=== PATIENT | female | born 1945 | race Caucasian/White ===

== ENCOUNTER 2017-03-12 10:45 | Inpatient (IN) | payer MEDICARE, OTHER ==
[2017-03-12] MEDS ORDERED: ASPIRIN 81 MG TABLET, CHEWABLE PO ONE (11:19)
[2017-03-12] MEDS ORDERED: METOPROLOL TARTRATE 100 MG TABLET PO ONE (11:19)
--- NOTE | 2017-03-12 11:21 | ER Document Report ---
ED Medical Screen (RME) - General Chief Complaint: Chest Pain Stated Complaint: CHEST PAIN Time Seen by Provider: 03/12/17 11:16 Notes: Patient presents with 3 days of substernal chest pain with some shortness of breath. Patient states she is currently pain-free and the pain subsided "just a little bit ago". Patient states that 2 days ago she realized that her blood pressure is normal and so she has stopped taking her blood pressure medications. Patient denies any recent cough cold or congestion. She is a smoker. TRAVEL OUTSIDE OF THE [place] IN LAST 30 DAYS: No - Related Data Allergies/Adverse Reactions: latex [Latex] Allergy (Verified 05/23/15 13:24) Penicillins Allergy (Verified 05/23/15 13:24) Sulfa (Sulfonamide Antibiotics) Allergy (Verified 05/23/15 13:24) Past Medical History - Social History Chew tobacco use (# tins/day): - 30 Frequency of alcohol use: None Drug Abuse: None - Past Medical History Cardiac Medical History: Reports: Hx Coronary Artery Disease, Hx Heart Attack, Hx Hypercholesterolemia, Hx Hypertension Pulmonary Medical History: Reports: Hx COPD Renal/ Medical History: Denies: Hx Peritoneal Dialysis GI Medical History: Reports: Hx Gastroesophageal Reflux Disease Past Surgical History: Reports: Hx Orthopedic Surgery - Rt BKA, neck - Immunizations Hx Diphtheria, Pertussis, Tetanus Vaccination: No Physical Exam - Vital signs Vitals: Temp Pulse Resp BP Pulse Ox 97.8 F 88 16 227/106 H 98 03/12/17 11:01 03/12/17 11:01 03/12/17 11:01 03/12/17 11:01 03/12/17 11:01 Course - Vital Signs Vital signs: Temp Pulse Resp BP Pulse Ox 97.8 F 88 16 227/106 H 98 03/12/17 11:05 03/12/17 11:05 03/12/17 11:05 03/12/17 11:05 03/12/17 11:05
[2017-03-12 11:52] LABS: ABSOLUTE BASOPHILS # (AUTO) 0.1 10^3/uL (0.0-0.2); ABSOLUTE EOSINOPHILS # (AUTO) 0.2 10^3/uL (0.0-0.6); ABSOLUTE LYMPHOCYTES (AUTO) 1.2 10^3/uL (0.5-4.7); ABSOLUTE MONOCYTES (AUTO) 0.7 10^3/uL (0.1-1.4); ABSOLUTE NEUT (AUTO) 8.2 10^3/uL (1.7-8.2); BASOPHILS % (AUTO) 0.8 % (0-2); EOSINOPHILS % (AUTO) 1.6 % (0-6); HEMATOCRIT 44.3 % (36.0-47.0); HEMOGLOBIN 15.3 g/dL (12.0-15.5); HGB HCT DIFFERENCE 1.6; LYMPHOCYTES % (AUTO) 11.2 % (13-45); MEAN CORPUSCULAR HEMOGLOBIN 33.2 pg (27.0-33.4); MEAN CORPUSCULAR HGB CONC 34.5 g/dL (32.0-36.0); MEAN CORPUSCULAR VOLUME 96 fl (80-97); RED CELL DISTRIBUTION WIDTH 13.6 % (11.5-14.0); SEGMENTED NEUTROPHILS % (AUTO) 79.4 % (42-78); WHITE BLOOD COUNT 10.3 10^3/uL (4.0-10.5)
[2017-03-12 12:11] LABS: ALANINE AMINOTRANSFERASE 20 U/L (9-52); ALBUMIN 4.5 g/dL (3.5-5.0); ALKALINE PHOSPHATASE 91 U/L (38-126); ANION GAP 11 (5-19); ASPARTATE AMINO TRANSFERASE 15 U/L (14-36); BILIRUBIN,DIRECT 0.4 mg/dL (0.0-0.4); BILIRUBIN,TOTAL 0.5 mg/dL (0.2-1.3); BLOOD UREA NITROGEN 15 mg/dL (7-20); CALCIUM 10.7 mg/dL (8.4-10.2); CARBON DIOXIDE 29 mmol/L (22-30); CHLORIDE 99 mmol/L (98-107); CREATININE RESULT 1.07 mg/dL (0.52-1.25); GLUCOSE 133 mg/dL (75-110); POTASSIUM 3.4 mmol/L (3.6-5.0); SODIUM 138.9 mmol/L (137-145)
--- NOTE | 2017-03-12 12:19 | RADIOLOGY REPORT (SQ) ---
EXAM DESCRIPTION: CHEST PA/LAT COMPLETED DATE/TIME: 03/12/2017 11:56 am REASON FOR STUDY: cp COMPARISON: CT angio chest 05/09/2010 Chest films 06/06/2012, 06/02/2015 EXAM PARAMETERS: NUMBER OF VIEWS: two views TECHNIQUE: Digital Frontal and Lateral radiographic views of the chest acquired. RADIATION DOSE: NA LIMITATIONS: none FINDINGS: LUNGS AND PLEURA: Lungs are hyperlucent from obstructive disease. No focal infiltrates. No pleural effusion. No pneumothorax. MEDIASTINUM AND HILAR STRUCTURES: No masses or contour abnormalities. HEART AND VASCULAR STRUCTURES: Heart normal size. No evidence for failure. Tortuous uncoiled thorac ic aorta. Faintly radiopaque right coronary stents. BONES: No acute findings. 25% T12 compression deformity, new compared to chest films in 2015 for chr onic in appearance on today's study HARDWARE: None in the chest. OTHER: No other significant finding. IMPRESSION: Obstructive lung disease. No acute infiltrates. Radiopaque right coronary stents TECHNICAL DOCUMENTATION: JOB ID: [id number] [employer]- All Rights Reserved
[2017-03-12] MEDS ORDERED: LISINOPRIL 10 MG TABLET PO ONE ×2 (12:27→19:30)
[2017-03-12] MEDS ORDERED: NITROGLYCERIN 5 MG (0.2 MG/HR) PATCH.TD24 TD ONE (14:10)
--- NOTE | 2017-03-12 14:28 | ER Document Report ---
ED Cardiac - General Chief Complaint: Chest Pain Stated Complaint: CHEST PAIN Time Seen by Provider: 03/12/17 11:16 Notes: Patient says she is experiencing "pressure" in the anterior aspect of her chest. It does not radiate. It has been going on for a couple of days, started Friday. Patient says she had a routine follow-up appointment at Dr. Stanley' s office on Friday and everything was well. She then forgot to take her blood pressure medicines Friday and yesterday, coincidentally at the same time as she began to feel this pressure in her chest. She has had a cough but not short of breath. No nausea or vomiting or diarrhea. Patient has a history of hypertension and is supposed to be on 4 different medications, 1 of which is lisinopril. Denies diabetes. Has had coronary stents placed in the past. History of right BKA. History of hysterectomy. Cigarette smoker. TRAVEL OUTSIDE OF THE [place] IN LAST 30 DAYS: No - Related Data Allergies/Adverse Reactions: latex [Latex] Allergy (Verified 05/23/15 13:24) Penicillins Allergy (Verified 05/23/15 13:24) Sulfa (Sulfonamide Antibiotics) Allergy (Verified 05/23/15 13:24) Past Medical History - Social History Smoking Status: Current Every Day Smoker Chew tobacco use (# tins/day): - 30 Frequency of alcohol use: None Drug Abuse: None Family History: Reviewed & Not Pertinent Patient has suicidal ideation: No Patient has homicidal ideation: No - Past Medical History Cardiac Medical History: Reports: Hx Coronary Artery Disease - Stents placed previously., Hx Heart Attack, Hx Hypercholesterolemia, Hx Hypertension Pulmonary Medical History: Reports: Hx COPD GI Medical History: Reports: Hx Gastroesophageal Reflux Disease Past Surgical History: Reports: Hx Orthopedic Surgery - Rt BKA, neck - Immunizations Hx Diphtheria, Pertussis, Tetanus Vaccination: No Hx Pneumococcal Vaccination: 05/18/10 Review of Systems - Review of Systems Notes: REVIEW OF SYSTEMS: CONSTITUTIONAL : Denies fever. EENT: Denies eye, ear, nose or mouth or throat pain or other symptoms. CARDIOVASCULAR: See HPI. RESPIRATORY: Has had a cough. Denies chest congestion, or shortness of breath. GASTROINTESTINAL: Denies abdominal pain or nausea, vomiting, or diarrhea. GENITOURINARY: Denies difficulty or painful urinating, urinary frequency, blood in urine. MUSCULOSKELETAL: Denies back or neck pain. Denies joint pain or swelling. SKIN: Denies rash or skin lesions. No leg pain or swelling. NEUROLOGICAL: Denies LOC or altered mental status. Denies headache. Denies sensory loss or motor deficits. ALL OTHER SYSTEMS REVIEWED AND NEGATIVE. Physical Exam - Vital signs Vitals: Temp Pulse Resp BP Pulse Ox 97.8 F 88 16 227/106 H 98 03/12/17 11:01 03/12/17 11:01 03/12/17 11:01 03/12/17 11:01 03/12/17 11:01 Interpretation: Hypertensive - Notes Notes: PHYSICAL EXAMINATION: GENERAL: Well-appearing, in no acute distress. Anxious. HEAD: Atraumatic, normocephalic. NECK: Normal range of motion, supple. LUNGS: Breath sounds clear and equal bilaterally. No chest wall tenderness. HEART: Regular rate and rhythm without murmurs. ABDOMEN: Soft, nontender. No guarding or rebound. BACK: No tenderness throughout entire back. EXTREMITIES: Right BK amputation. Normal range of motion without pain. No swelling or pain in either leg. Negative Homans left leg. NEUROLOGICAL: Normal speech, normal gait. Normal sensory, motor, and reflex exams. Awake, alert, and oriented x3. Cranial nerves normal. PSYCH: Normal mood, normal affect. SKIN: Warm, dry, no rashes. Course - Re-evaluation Re-evalutation: 03/12/17 14:32 Pressure remained high, even after having given the patient 20 mg of lisinopril. I ordered a nitro patch at 0.[address] Stanley, who will admit the patient to [facility]. - Vital Signs Vital signs: Temp Pulse Resp BP Pulse Ox 97.8 F 88 16 200/108 H 100 03/12/17 11:05 03/12/17 11:05 03/12/17 14:02 03/12/17 14:02 03/12/17 14:01 - Laboratory Result Diagrams: 03/12/17 11:35 03/12/17 11:35 Laboratory results interpreted by me: 03/12/17 03/12/17 11:35 11:35 Seg Neutrophils % 79.4 H Lymphocytes % 11.2 L Potassium 3.4 L Est GFR (Non-Af Amer) 50 L Glucose 133 H Calcium 10.7 H Discharge - Discharge Clinical Impression: Chest pain, Non-STEMI (non-ST elevated myocardial infarction) Condition: Stable Disposition: ADMITTED INPATIENT Admitting Provider: Deni Unit Admitted: [facility] Referrals: MARIAN GO MD [Primary Care Provider] - Follow up as needed
[2017-03-12] MEDS ORDERED: CLOPIDOGREL BISULFATE 300 MG TABLET PO ONE ×2 (16:30→20:00)
[2017-03-12] MEDS ORDERED: ENOXAPARIN SODIUM INJ 80 MG/0.8 ML DISP.SYRIN SUBCUT ONE ×2 (16:30→20:00)
[2017-03-12] MEDS ORDERED: METOPROLOL SUCCINATE 50 MG TAB.SR.24H PO ONE ×2 (16:30→20:00)
[2017-03-12 18:04] LABS: PROTHROMBIN TIME 12.2 SEC (11.4-15.4)
[2017-03-12 18:05] LABS: PARTIAL THROMBOPLASTIN TIME 27.4 SEC (23.5-35.8)
[2017-03-12] MEDS: NITROGLYCERIN/D5W 50 MG/250 ML RTUINJ IV PRN (18:07)
[2017-03-12 18:42] LABS: CREATINE KINASE MB 1.31 ng/mL (<4.55)
[2017-03-12 18:49] LABS: TROPONIN I 0.321 ng/mL
--- NOTE | 2017-03-12 19:18 | XCELERA REPORT ---
[address] [address] Transthoracic Echocardiogram Report Name: USAMA SULLIVAN Age: 71 yrs Gender: Female : 1945 Patient Status: Inpatient Patient Location: [address] Study Date: 03/12/2017 05:12 PM Height: 67 in Weight: 150 lb BSA: 1.8 m2 Procedure: A complete two-dimensional transthoracic echocardiogram was performed (2D, M-mode, spectral and color flow Doppler). The study was technically adequate with some images being suboptimal in quality. Reason For Study: LV Function, size, wall thickness,Valve Function Ordering Physician: MARIAN GO Performed By: Lester Maza Interpretation Summary The left ventricular ejection fraction is normal. There is mild concentric left ventricular hypertrophy. Doppler measurements suggest pseudonormalized left ventricular relaxation, which is associated with grade II/IV or mild to moderate diastolic dysfunction The left ventricle is grossly normal size. Wall motion cannot be accurately commented on, but no definite regional wall motion abnormalities noted. The right ventricle is grossly normal size. The right ventricular systolic function is normal. The right atrium is normal in size Borderline left atrial enlargement. There is a trace amount of mitral regurgitation There is no mitral valve stenosis. No aortic regurgitation is present. There is no aortic valve stenosis There is a trace or physiologic amount of tricuspid regurgitation Tricuspid regurgitation jet envelope not well defined to measure RV systolic pressure accurately. The pulmonic valve is not well visualized. The aortic root is not well visualized but is probably normal size. The inferior vena cava appeared normal and decreased > 50% with respiration (RAP 5-10 mmHg) Minimal pericardial effusion. MMode/2D Measurements & Calculations RVDd: 2.6 cm LVIDd: 4.7 cm FS: 28.1 % Ao root diam: 3.5 cm IVSd: 1.4 cm LVIDs: 3.4 cm EDV(Teich): 104.3 ml LVPWd: 0.99 cm ESV(Teich): 47.6 ml Ao root area: 9.8 cm2 EF(Teich): 54.4 % LA dimension: 3.4 cm Doppler Measurements & Calculations MV E max gonzalo: MV P1/2t max gonzalo: Ao V2 max: LV V1 max P.6 cm/sec 40.9 cm/sec 109.9 cm/sec 3.1 mmHg MV A max gonzalo: MV P1/2t: 62.0 msec Ao max PG: LV V1 max: 80.2 cm/sec 4.8 mmHg 88.3 cm/sec MV E/A: 0.48 MVA(P1/2t): 3.5 cm2 MV dec slope: 193.0 cm/sec2 PA V2 max: PI end-d gonzalo: TR max gonzalo: RAP systole: 75.5 cm/sec 117.3 cm/sec 183.2 cm/sec 10.0 mmHg PA max PG: TR max P.3 mmHg 13.4 mmHg RVSP(TR): 23.4 mmHg Left Ventricle The left ventricle is grossly normal size. There is mild concentric left ventricular hypertrophy. The left ventricular ejection fraction is normal. Doppler measurements suggest pseudonormalized left ventricular relaxation, which is associated with grade II/IV or mild to moderate diastolic dysfunction. Wall motion cannot be accurately commented on, but no definite regional wall motion abnormalities noted. Right Ventricle The right ventricle is grossly normal size. There is normal right ventricular wall thickness. The right ventricular systolic function is normal. Atria The right atrium is normal in size. Borderline left atrial enlargement. Interarterial septum not well visualized and not well dopplered. Cannot comment on ASD/PFO presence. Mitral Valve The mitral valve is grossly normal. There is no mitral valve stenosis. There is a trace amount of mitral regurgitation. Aortic Valve The aortic valve is grossly normal. There is no aortic valve stenosis. No aortic regurgitation is present. Tricuspid Valve The tricuspid valve is not well visualized, but is grossly normal. There is no tricuspid stenosis. There is a trace or physiologic amount of tricuspid regurgitation. Tricuspid regurgitation jet envelope not well defined to measure RV systolic pressure accurately. Pulmonic Valve The pulmonic valve is not well visualized. Great Vessels The aortic root is not well visualized but is probably normal size. The inferior vena cava appeared normal and decreased > 50% with respiration (RAP 5-10 mmHg). Effusions Minimal pericardial effusion. : MARIAN GO > Michael Johnston
[2017-03-12] MEDS: ATORVASTATIN CALCIUM 80 MG TABLET PO SCH (21:33)
--- NOTE | 2017-03-12 21:54 | EKG REPORT ---
SEVERITY:- ABNORMAL ECG - SINUS RHYTHM LEFT AXIS DEVIATION LVH WITH SECONDARY REPOLARIZATION ABNORMALITY : Confirmed by: Michael Johnston 12-Mar-2017 21:53:39
--- NOTE | 2017-03-12 21:55 | PDOC H&P ---
History of Present Illness Admission Date/PCP: 03/12/17 14:52 MARIAN GO MD History of Present Illness: USAMA SULLIVAN is a 71 year old female, She has a history of coronary artery disease, history of coronary artery stent placement many years ago, history of peripheral vascular disease 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 She came to the emergency room for evaluation of chest pressure that started on Friday the chest pressure is intermittent in character , on Friday the chest pressure subsided and then today she experienced another episode of chest pressure. In the emergency room the blood pressure recorded was severely elevated at 200 systolic, the troponin was 0.2 the 12-lead EKG did not show any ST T-segment deviation, it was sinus rhythm she has a history of poor medication adherence Past Medical History Cardiac Medical History: Reports: Coronary Artery Disease - Stents placed previously., Myocardial Infarction, Hyperlipidema, Hypertension, Peripheral Vascular Disease Pulmonary Medical History: Reports: Chronic Obstructive Pulmonary Disease (COPD) GI Medical History: Reports: Gastroesophageal Reflux Disease Past Surgical History Past Surgical History: Reports: Orthopedic Surgery - Rt BKA, neck Social History Smoking Status: Current Every Day Smoker Cigarettes Packs Per Day: 1 Number of Years Smokin Last Time Smoked: 03/12/2017 Frequency of Alcohol Use: None Hx Recreational Drug Use: No Drugs: None - Advance Directive Resuscitation Status: Full Code Family History Family History: Reviewed & Not Pertinent Parental Family History Reviewed: Yes Children Family History Reviewed: Yes Sibling(s) Family History Reviewed.: Yes Medication/Allergy Home Medications: Lisinopril [Prinivil] 20 mg PO DAILY 03/12/17 Oxycodone HCl 20 mg PO Q4HP PRN 03/12/17 Zolpidem Tartrate [Ambien] 10 mg PO HSP PRN 03/12/17 Allergies/Adverse Reactions: latex [Latex] Allergy (Verified 05/23/15 13:24) Penicillins Allergy (Verified 05/23/15 13:24) Sulfa (Sulfonamide Antibiotics) Allergy (Verified 05/23/15 13:24) Review of Systems Constitutional: ABSENT: chills, fever(s), headache(s), weight gain, weight loss Eyes: ABSENT: visual disturbances Ears: ABSENT: hearing changes Cardiovascular: PRESENT: chest pain Respiratory: ABSENT: cough, hemoptysis Gastrointestinal: ABSENT: abdominal pain, constipation, diarrhea, hematemesis, hematochezia, nausea, vomiting Genitourinary: ABSENT: dysuria, hematuria Musculoskeletal: ABSENT: joint swelling Integumentary: ABSENT: rash, wounds Neurological: ABSENT: abnormal gait, abnormal speech, confusion, dizziness, focal weakness, syncope Psychiatric: ABSENT: anxiety, depression, homidical ideation, suicidal ideation Endocrine: ABSENT: cold intolerance, heat intolerance, menstrual abnormalities, polydipsia, polyuria Hematologic/Lymphatic: ABSENT: easy bleeding, easy bruising, lymphadenopathy Physical Exam Vital Signs: Temp Pulse Resp BP Pulse Ox 98.3 F 88 18 135/69 H 96 03/12/17 18:46 03/12/17 19:02 03/12/17 18:46 03/12/17 18:46 03/12/17 18:46 Intake & Output 03/11/17 03/12/17 03/13/17 06:59 06:59 06:59 Weight 64.8 kg General appearance: PRESENT: no acute distress, well-developed, well-nourished Head exam: PRESENT: atraumatic, normocephalic Eye exam: PRESENT: conjunctiva pink, EOMI, PERRLA Ear exam: PRESENT: normal external ear exam Mouth exam: PRESENT: moist, tongue midline Neck exam: PRESENT: full ROM Cardiovascular exam: PRESENT: RRR, +S1, +S2 Pulses: PRESENT: normal dorsalis pedis pul, +2 pedal pulses bilateral Vascular exam: PRESENT: normal capillary refill GI/Abdominal exam: PRESENT: normal bowel sounds, soft Rectal exam: PRESENT: deferred Extremities exam: PRESENT: right BKA Neurological exam: PRESENT: alert, awake, oriented to person, oriented to place , oriented to time, oriented to situation, CN II-XII grossly intact Psychiatric exam: PRESENT: appropriate affect, normal mood Skin exam: PRESENT: dry, intact, warm Results Laboratory Results: 03/12/17 17:45 Phosphorus 4.1 03/12/17 17:45 CK-MB (CK-2) 1.31 Troponin I 0.321 Impressions: Chest X-Ray 03/12/17 11:19 IMPRESSION: Obstructive lung disease. No acute infiltrates. Radiopaque right coronary stents Assessment & Plan - Diagnosis (1) Non-STEMI (non-ST elevated myocardial infarction) Is this a current diagnosis for this admission?: Yes Plan: Patient's presentation is consistent with non-ST elevated myocardial infarction , she will be treated with Lovenox 1 mg/kg body weight every 12 hours, Plavix, aspirin, beta-devyn, statin. A 2D echo to be ordered serial cardiac enzymes to be ordered (2) Hypertensive emergency Is this a current diagnosis for this admission?: Yes Plan: She be started on intravenous nitroglycerin infusion (3) Acquired absence of right leg below knee Is this a current diagnosis for this admission?: Yes - Time Time Spent: 50 to 70 Minutes Smoking Cessation Education: over 10 minutes - Inpatient Certification Based on my medical assessment, after consideration of the patient's comorbidities, presenting symptoms, or acuity I expect that the services needed warrant INPATIENT care.: Yes I certify that my determination is in accordance with my understanding of Medicare's requirements for reasonable and necessary INPATIENT services [42 CFR 412.3e].: Yes Medical Necessity: Need Close Monitoring Due to Risk of Patient Decompensation, Need For IV Fluids, Risk of Complication if Not Cared For in Hospital, Risk of Diagnosis Which Will Require Inpatient Eval/Care/Monitoring
[2017-03-12 22:31] LABS: ALANINE AMINOTRANSFERASE 21 U/L (9-52); ALKALINE PHOSPHATASE 81 U/L (38-126); ANION GAP 11 (5-19); ASPARTATE AMINO TRANSFERASE 13 U/L (14-36); BILIRUBIN,DIRECT 0.4 mg/dL (0.0-0.4); BILIRUBIN,TOTAL 0.4 mg/dL (0.2-1.3); BLOOD UREA NITROGEN 18 mg/dL (7-20); CALCIUM 10.1 mg/dL (8.4-10.2); CARBON DIOXIDE 28 mmol/L (22-30); CHLORIDE 99 mmol/L (98-107); CREATININE RESULT 1.39 mg/dL (0.52-1.25); GLUCOSE 143 mg/dL (75-110); POTASSIUM 3.9 mmol/L (3.6-5.0); SODIUM 138.1 mmol/L (137-145); TOTAL PROTEIN 7.2 g/dL (6.3-8.2)
[2017-03-12 22:43] LABS: CREATINE KINASE MB 1.14 ng/mL (<4.55); TROPONIN I 0.314 ng/mL
[2017-03-13 03:52] LABS: ABSOLUTE BASOPHILS # (AUTO) 0.1 10^3/uL (0.0-0.2); ABSOLUTE EOSINOPHILS # (AUTO) 0.3 10^3/uL (0.0-0.6); ABSOLUTE NEUT (AUTO) 4.5 10^3/uL (1.7-8.2); BASOPHILS % (AUTO) 1.2 % (0-2); EOSINOPHILS % (AUTO) 3.5 % (0-6); HEMATOCRIT 41.3 % (36.0-47.0); HEMOGLOBIN 14.1 g/dL (12.0-15.5); LYMPHOCYTES % (AUTO) 33.7 % (13-45); MEAN CORPUSCULAR HEMOGLOBIN 32.5 pg (27.0-33.4); MEAN CORPUSCULAR HGB CONC 34.1 g/dL (32.0-36.0); MEAN CORPUSCULAR VOLUME 95 fl (80-97); MONOCYTES % (AUTO) 11.2 % (3-13); RED BLOOD COUNT 4.34 10^6/uL (3.72-5.28); RED CELL DISTRIBUTION WIDTH 13.8 % (11.5-14.0); SEGMENTED NEUTROPHILS % (AUTO) 50.4 % (42-78); WHITE BLOOD COUNT 8.8 10^3/uL (4.0-10.5)
[2017-03-13 04:07] LABS: ANION GAP 10 (5-19); BLOOD UREA NITROGEN 21 mg/dL (7-20); CALCIUM 9.8 mg/dL (8.4-10.2); CARBON DIOXIDE 30 mmol/L (22-30); CHLORIDE 99 mmol/L (98-107); CHOLESTEROL 190.61 mg/dL (0-200); Direct HDL 52 mg/dL (>40); GLUCOSE 118 mg/dL (75-110); POTASSIUM 4.1 mmol/L (3.6-5.0); TRIGLYCERIDES 126 mg/dL (<150)
[2017-03-13 04:18] LABS: DIRECT LDL 108 mg/dL (<100)
[2017-03-13 04:19] LABS: CREATINE KINASE MB 0.88 ng/mL (<4.55)
[2017-03-13 04:23] LABS: TROPONIN I 0.287 ng/mL
[2017-03-13] MEDS: ENOXAPARIN SODIUM INJ 80 MG/0.8 ML DISP.SYRIN SUBCUT SCH ×2 (05:26→17:00)
[2017-03-13] MEDS: ASPIRIN 325 MG TABLET, ENT COATED PO SCH (10:28)
[2017-03-13] MEDS: CLOPIDOGREL BISULFATE 75 MG TABLET PO SCH (10:28)
[2017-03-13] MEDS: LISINOPRIL 10 MG TABLET PO SCH (10:28)
[2017-03-13] MEDS: METOPROLOL SUCCINATE 50 MG TAB.SR.24H PO SCH (10:29)
[2017-03-13] MEDS: NITROGLYCERIN/D5W 50 MG/250 ML RTUINJ IV PRN (10:29)
--- NOTE | 2017-03-13 18:48 | PDOC PROGRESS REPORT ---
Subjective Progress Note for:: 03/13/17 Subjective:: Patient was seen by the bedside, she was admitted yesterday for non-ST elevated myocardial infarction, the troponin is peak at 0.30. She is presently chest pain-free, she is scheduled for a Cardiolite Lexiscan stress test in the morning. The serum creatinine on admission was 1.3 The serum creatinine today is 1.6, there is no dipstick urinalysis on record, kidney ultrasound is ordered to rule out postobstructive nephropathy Physical Exam Vital Signs: Temp Pulse Resp BP Pulse Ox 97.9 F 47 L 18 136/90 H 98 03/13/17 15:06 03/13/17 15:06 03/13/17 15:06 03/13/17 15:06 03/13/17 15:06 Intake & Output 03/12/17 03/13/17 03/14/17 06:59 06:59 06:59 Intake Total 1219 10 Output Total 200 Balance 1219 -190 Weight 64.8 kg General appearance: PRESENT: no acute distress Head exam: PRESENT: atraumatic, normocephalic Eye exam: PRESENT: PERRLA Ear exam: PRESENT: normal external ear exam Mouth exam: PRESENT: moist, tongue midline Neck exam: PRESENT: full ROM Respiratory exam: PRESENT: clear to auscultation shashank Cardiovascular exam: PRESENT: RRR, +S1, +S2 Pulses: PRESENT: normal dorsalis pedis pul, +2 pedal pulses bilateral Vascular exam: PRESENT: normal capillary refill GI/Abdominal exam: PRESENT: normal bowel sounds, soft Rectal exam: PRESENT: deferred Neurological exam: PRESENT: alert, awake, oriented to person, oriented to place , oriented to time, oriented to situation, CN II-XII grossly intact Psychiatric exam: PRESENT: appropriate affect, normal mood Skin exam: PRESENT: dry, intact, warm Results Laboratory Results: 03/13/17 03:39 03/13/17 03:39 03/12/17 03/13/17 03/13/17 22:05 03:39 03:39 WBC 8.8 RBC 4.34 Hgb 14.1 Hct 41.3 MCV 95 MCH 32.5 MCHC 34.1 RDW 13.8 Plt Count 222 Seg Neutrophils % 50.4 Lymphocytes % 33.7 Monocytes % 11.2 Eosinophils % 3.5 Basophils % 1.2 Absolute Neutrophils 4.5 Absolute Lymphocytes 3.0 Absolute Monocytes 1.0 Absolute Eosinophils 0.3 Absolute Basophils 0.1 Sodium 138.1 139.0 Potassium 3.9 4.1 Chloride 99 99 Carbon Dioxide 28 30 Anion Gap 11 10 BUN 18 21 H Creatinine 1.39 H 1.60 H Est GFR ( Amer) 45 L 38 L Est GFR (Non-Af Amer) 37 L 32 L Glucose 143 H 118 H Calcium 10.1 9.8 Total Bilirubin 0.4 AST 13 L ALT 21 Alkaline Phosphatase 81 Total Protein 7.2 Albumin 4.0 Triglycerides 126 Cholesterol 190.61 LDL Cholesterol Direct 108 H VLDL Cholesterol 25.0 HDL Cholesterol 52 03/12/17 03/12/17 03/13/17 17:45 22:05 03:39 CK-MB (CK-2) 1.31 1.14 0.88 Troponin I 0.321 0.314 0.287 Impressions: Chest X-Ray 03/12/17 11:19 IMPRESSION: Obstructive lung disease. No acute infiltrates. Radiopaque right coronary stents Assessment & Plan - Diagnosis (1) Non-STEMI (non-ST elevated myocardial infarction) Is this a current diagnosis for this admission?: Yes (2) Hypertensive emergency Is this a current diagnosis for this admission?: Yes (3) Acquired absence of right leg below knee Is this a current diagnosis for this admission?: Yes (4) Acute kidney injury Is this a current diagnosis for this admission?: Yes - Plan Summary Plan Summary: Kidney ultrasound is ordered,
--- NOTE | 2017-03-13 20:29 | RADIOLOGY REPORT (SQ) ---
"EXAM DESCRIPTION: U/S RETROPERITON (RENAL/AORTA) COMPLETED DATE/TIME: 03/13/2017 8:00 pm REASON FOR STUDY: kidney failure COMPARISON: None. TECHNIQUE: Dynamic and static grayscale images acquired of the kidneys and bladder and recorded on P ACS. Additional selected color Doppler and spectral images recorded. LIMITATIONS: None. FINDINGS: RIGHT KIDNEY: 7.1 cm length. 2.6 cm upper pole cyst. No solid or suspicious masses. No hy dronephrosis. No calcifications. LEFT KIDNEY: 7.8 cm length. Normal echogenicity. No solid or suspicious masses. No hydronephrosis. N o calcifications. BLADDER: No masses. OTHER FINDINGS: No other significant finding. IMPRESSION: No evidence for urinary obstruction. TECHNICAL DOCUMENTATION: JOB ID: [id number] [employer]- All Rights Reserved"
--- NOTE | 2017-03-13 21:35 | EKG REPORT ---
SEVERITY:- ABNORMAL ECG - SINUS BRADYCARDIA LEFT AXIS DEVIATION LVH WITH SECONDARY REPOLARIZATION ABNORMALITY VS ISCHEMIA PROLONGED QT INTERVAL : Confirmed by: Michael Johnston 13-Mar-2017 21:34:32
--- NOTE | 2017-03-13 22:37 | PDOC CONSULTATION ---
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 She came to the emergency room for evaluation of chest pressure that started on Friday the chest pressure is intermittent in character , on Friday the chest pressure subsided and then today she experienced another episode of chest pressure. In the emergency room the blood pressure recorded was severely elevated at 200 systolic, the troponin was 0.2 the 12-lead EKG did not show any ST T-segment deviation, it was sinus rhythm she has a history of poor medication adherence. Past Medical History Cardiac Medical History: Reports: Coronary Artery Disease - Stents placed previously., Myocardial Infarction, Hyperlipidema, Hypertension, Peripheral Vascular Disease Pulmonary Medical History: Reports: Chronic Obstructive Pulmonary Disease (COPD) GI Medical History: Reports: Gastroesophageal Reflux Disease Past Surgical History Past Surgical History: Reports: Orthopedic Surgery - Rt BKA, neck Social History Smoking Status: Current Every Day Smoker Cigarettes Packs Per Day: 1 Number of Years Smokin Last Time Smoked: 03/12/2017 Frequency of Alcohol Use: None Hx Recreational Drug Use: No Drugs: None - Advance Directive Resuscitation Status: Full Code Family History Family History: Reviewed & Not Pertinent, Hypertension Parental Family History Reviewed: Yes Children Family History Reviewed: Yes Sibling(s) Family History Reviewed.: Yes Medication/Allergy Home Medications: Oxycodone HCl 20 mg PO Q4HP PRN 03/12/17 Zolpidem Tartrate [Ambien] 10 mg PO HSP PRN 03/12/17 Aspirin [Ecotrin 325 mg EC Tablet] 325 mg PO DAILY #90 tabec 03/14/17 Atorvastatin Calcium [Lipitor 80 mg Tablet] 80 mg PO QHS #90 tablet 03/14/17 Clopidogrel Bisulfate [Plavix 75 mg Tablet] 75 mg PO DAILY #90 tablet 03/14/17 Lisinopril [Prinivil] 20 mg PO DAILY #30 tablet 08/25/17 Metoprolol Succinate [Toprol Xl 50 mg Tab.sr] 200 mg PO DAILY #30 tab.sr.24h Nicotine [Nicoderm 21 mg/24 Hr Transderm Patch] 1 each TD NOON patch.td24 03/14 Allergies/Adverse Reactions: latex [Latex] Allergy (Verified 05/23/15 13:24) Penicillins Allergy (Verified 05/23/15 13:24) Sulfa (Sulfonamide Antibiotics) Allergy (Verified 05/23/15 13:24) Review of Systems Review of Systems: Constitutional: ABSENT: chills, fever(s), headache(s), weight gain, weight loss Eyes: ABSENT: visual disturbances Ears: ABSENT: hearing changes Cardiovascular: PRESENT: chest pain Respiratory: ABSENT: cough, hemoptysis Gastrointestinal: ABSENT: abdominal pain, constipation, diarrhea, hematemesis, hematochezia, nausea, vomiting Genitourinary: ABSENT: dysuria, hematuria Musculoskeletal: ABSENT: joint swelling Integumentary: ABSENT: rash, wounds Neurological: ABSENT: abnormal gait, abnormal speech, confusion, dizziness, focal weakness, syncope Psychiatric: ABSENT: anxiety, depression, homidical ideation, suicidal ideation Endocrine: ABSENT: cold intolerance, heat intolerance, menstrual abnormalities, polydipsia, polyuria Hematologic/Lymphatic: ABSENT: easy bleeding, easy bruising, lymphadenopathy Physical Exam Vital Signs: Temp Pulse Resp BP Pulse Ox 98.4 F 53 L 19 170/66 H 98 03/13/17 20:05 03/13/17 20:05 03/13/17 20:05 03/13/17 20:05 03/13/17 20:05 Intake & Output 03/12/17 03/13/17 03/14/17 06:59 06:59 06:59 Intake Total 1219 10 Output Total 200 Balance 1219 -190 Weight 64.8 kg Exam: General appearance: PRESENT: no acute distress, well-developed, well-nourished Head exam: PRESENT: atraumatic, normocephalic Eye exam: PRESENT: conjunctiva pink, EOMI, PERRLA Ear exam: PRESENT: normal external ear exam Mouth exam: PRESENT: moist, tongue midline Neck exam: PRESENT: full ROM Cardiovascular exam: PRESENT: RRR, +S1, +S2 Pulses: PRESENT: normal dorsalis pedis pul, +2 pedal pulses bilateral Vascular exam: PRESENT: normal capillary refill GI/Abdominal exam: PRESENT: normal bowel sounds, soft Rectal exam: PRESENT: deferred Extremities exam: PRESENT: right BKA Neurological exam: PRESENT: alert, awake, oriented to person, oriented to place , oriented to time, oriented to situation, CN II-XII grossly intact Psychiatric exam: PRESENT: appropriate affect, normal mood Skin exam: PRESENT: dry, intact, warm Results Laboratory Results: 03/13/17 03:39 03/13/17 03:39 03/12/17 03/13/17 03/13/17 22:05 03:39 03:39 WBC 8.8 RBC 4.34 Hgb 14.1 Hct 41.3 MCV 95 MCH 32.5 MCHC 34.1 RDW 13.8 Plt Count 222 Seg Neutrophils % 50.4 Lymphocytes % 33.7 Monocytes % 11.2 Eosinophils % 3.5 Basophils % 1.2 Absolute Neutrophils 4.5 Absolute Lymphocytes 3.0 Absolute Monocytes 1.0 Absolute Eosinophils 0.3 Absolute Basophils 0.1 Sodium 138.1 139.0 Potassium 3.9 4.1 Chloride 99 99 Carbon Dioxide 28 30 Anion Gap 11 10 BUN 18 21 H Creatinine 1.39 H 1.60 H Est GFR ( Amer) 45 L 38 L Est GFR (Non-Af Amer) 37 L 32 L Glucose 143 H 118 H Calcium 10.1 9.8 Total Bilirubin 0.4 AST 13 L ALT 21 Alkaline Phosphatase 81 Total Protein 7.2 Albumin 4.0 Triglycerides 126 Cholesterol 190.61 LDL Cholesterol Direct 108 H VLDL Cholesterol 25.0 HDL Cholesterol 52 03/12/17 03/12/17 03/13/17 17:45 22:05 03:39 CK-MB (CK-2) 1.31 1.14 0.88 Troponin I 0.321 0.314 0.287 EKG Comments: Twelve-lead EKG from today shows significant change from yesterday showing sinus rhythm with symmetrical T-wave inversion consistent with ischemia. Impressions: Chest X-Ray 03/12/17 11:19 IMPRESSION: Obstructive lung disease. No acute infiltrates. Radiopaque right coronary stents Renal Ultrasound 03/13/17 00:00 IMPRESSION: No evidence for urinary obstruction. Assessment & Plan - Diagnosis (1) Non-STEMI (non-ST elevated myocardial infarction) Is this a current diagnosis for this admission?: Yes (2) Chest pain Qualifiers: Chest pain type: unspecified Qualified Code(s): R07.9 - Chest pain, unspecified Is this a current diagnosis for this admission?: Yes (3) Hypertensive emergency Is this a current diagnosis for this admission?: Yes (4) Dyslipidemia Is this a current diagnosis for this admission?: Yes (5) Acute kidney injury Is this a current diagnosis for this admission?: Yes - Notes Notes: Non-STEMI: Most likely related to acute coronary syndrome based on EKG changes and symptoms of chest pain on admission. Patient actually has been chest pain- free and has done reasonably well on medical management. Have scheduled patient for a nuclear stress test after giving option of pursuing heart catheterization which she was not keen to pursue. A nuclear stress test is therefore being scheduled. Chest pain: Most likely related to acute coronary syndrome. This could have been precipitated by severe hypertension in setting of underlying CAD. Hypertensive emergency: This has improved. Blood pressure goal is 135/85 or less in this lady. Dyslipidemia: LDL goal is less than 70. Continue with high potency statin therapy. Acute kidney injury: Most likely related to severe hypertension. This was one factor in choosing nuclear stress test as initial diagnostic strategy rather than heart catheterization. Tobacco abuse: Patient is strongly advised against tobacco abuse. - Time Time Spent: 30 to 50 Minutes - CODE STATUS was discussed, patient remains full code. Surrogate decision-maker patient's daughters. Multiple medical problems were addressed. More than 50% of the time spent coordinating care, discussing management plans with involved caregivers. Management plans discussed with involved personnels. Medical decision making was of moderate to high complexity , patient's has multiple comorbidities. Medications reviewed and adjusted accordingly: Yes
[2017-03-13] MEDS: ATORVASTATIN CALCIUM 80 MG TABLET PO SCH (23:45)
[2017-03-14] MEDS: ENOXAPARIN SODIUM INJ 80 MG/0.8 ML DISP.SYRIN SUBCUT SCH ×2 (06:49→18:42)
[2017-03-14 06:58] LABS: HEMATOCRIT 40.3 % (36.0-47.0); HEMOGLOBIN 13.9 g/dL (12.0-15.5); HGB HCT DIFFERENCE 1.4; MEAN CORPUSCULAR HEMOGLOBIN 32.6 pg (27.0-33.4); MEAN CORPUSCULAR HGB CONC 34.5 g/dL (32.0-36.0); MEAN CORPUSCULAR VOLUME 95 fl (80-97); RED BLOOD COUNT 4.27 10^6/uL (3.72-5.28); RED CELL DISTRIBUTION WIDTH 13.6 % (11.5-14.0); WHITE BLOOD COUNT 7.3 10^3/uL (4.0-10.5)
[2017-03-14 07:11] LABS: ANION GAP 9 (5-19); BLOOD UREA NITROGEN 21 mg/dL (7-20); CALCIUM 9.6 mg/dL (8.4-10.2); CARBON DIOXIDE 29 mmol/L (22-30); CHLORIDE 103 mmol/L (98-107); CREATININE RESULT 1.24 mg/dL (0.52-1.25); GLUCOSE 105 mg/dL (75-110); POTASSIUM 3.5 mmol/L (3.6-5.0); SODIUM 141.4 mmol/L (137-145)
[2017-03-14 08:34] LABS: APPEARANCE,URINE SLIGHTLY HAZY; BILIRUBIN,URINE NEGATIVE (NEGATIVE); GLUCOSE, URINE NEGATIVE (NEGATIVE); KETONES,URINE NEGATIVE (NEGATIVE); LEUKOCYTE ESTERASE,URINE TRACE (NEGATIVE); NITRITE,URINE POSITIVE (NEGATIVE); PROTEIN,URINE NEGATIVE (NEGATIVE); URINE SPECIFIC GRAVITY 1.005; UROBILINOGEN,URINE NEGATIVE mg/dL (<2.0)
[2017-03-14 08:35] LABS: BACTERIA,URINE 4+ /HPF
[2017-03-14] MEDS ORDERED: POTASSIUM CHLORIDE 10 MEQ TABLET.SA PO ONE ×2 (09:00→12:42)
[2017-03-14] MEDS ORDERED: ACETAMINOPHEN 325 MG TABLET PO PRN (11:15)
[2017-03-14] MEDS ORDERED: AMINOPHYLLINE INJ/PF 250 MG/10 ML SDV IV ONE (11:29)
[2017-03-14] MEDS ORDERED: REGADENOSON INJ 0.4 MG/5 ML DISP.SYRIN IV ONE (11:29)
[2017-03-14] MEDS ORDERED: NICOTINE 21 MG/24 HR PATCH.TD24 TD SCH (12:00)
[2017-03-14] MEDS: METOPROLOL SUCCINATE 50 MG TAB.SR.24H PO SCH (12:41)
[2017-03-14] MEDS: CLOPIDOGREL BISULFATE 75 MG TABLET PO SCH (12:41)
[2017-03-14] MEDS: ASPIRIN 325 MG TABLET, ENT COATED PO SCH (12:41)
[2017-03-14] MEDS: LISINOPRIL 10 MG TABLET PO SCH (12:42)
--- NOTE | 2017-03-14 13:33 | DRAGON STRESS TEST REPORT ---
INTRAVENOUS LEXISCAN CARDIOLITE STRESS TEST USING SINGLE PHOTON EMMISION COMPUTERIZED TOMOGRAPHIC. DATE OF PROCEDURE: March 14, 2017 INDICATION : Non-STEMI CARDIAC RISK FACTORS: Hypertension, dyslipidemia, tobacco abuse RESTING EKG: Sinus rhythm with minor nonspecific T-wave inversion anterior leads STRESS EKG: No significant changes noted with LexiScan bolus REASON FOR TERMINATION: Protocol. PROCEDURE REPORT: Baseline heart rate 70 beats per minute with blood pressure of 155/93. Patient had no significant complaints. Heart rate at 2 minutes post bolus 88 with a blood pressure of 163/84. 3 minutes post bolus heart rate 78 with blood pressure of 156/85 No significant EKG changes were noted. Patient had no significant complaints during the procedure or postprocedure. Patient injected with Aminophyllin 75 mg at 3 minutes or later after Lexiscan bolus. CONCLUSIONS: Normal EKG and hemodynamic response to IV LexiScan. NUCLEAR DATA: At rest the patient was given 10.38 millicuries of technetium 99 sestamibi injected intravenously. As per protocol rest gated SPECT images were obtained. Subsequently the patient was given intravenous LexiScan at a dose of 0.4 mg in 5 mL intravenously, followed by flush with normal saline. Subsequently the stress dose of 32.0 millicuries of technetium 99 sestamibi was injected intravenously. As per protocol stress gated images were obtained. NUCLEAR INTERPRETATION: Both raw and processed data were used for interpretation. Visual, qualitative, computer-generated quantitative data was used. There was good myocardial uptake of technetium compound. Motion artifact and soft tissue attenuations were noted. Increased visceral uptake was noted. Area of mild transient perfusion defect noted in the mid and basal inferior wall, SDS of 3. No definitive areas of fixed perfusion defect or scars noted. EKG gated imaging showed LV EF at 39 %, rest and stress gated EF similar visually. Regional wall motion cannot be accurately commented upon. T. I D. ratio was 1.17. Lung heart ratio noted to be within normal limits 0.34. No significant extracardiac and abnormal radiotracer activities were noted. RV free wall uptake was noted to be WNL. IMPRESSION: Also refer to comments under nuclear interpretation. Also test results needs to be interpreted in the context of pretest probability. 1. Mild ischemia noted involving the mid and basal inferior wall, SDS score of 3. 2. There is no definitive scintigraphic evidence of myocardial infarction/scar. 3. EKG gated imaging shows left ventricular ejection fraction of approximately 39 %. Please correlate with echocardiogram derived LVEF. 4. Clinical correlation requested as occasionally single vessel disease or balanced ischemia could be missed. In approximately 10% of the cases Lexiscan may not cause adequate vasodilatory stress. RECOMMENDATIONS: Aggressive risk factor modification, medical therapy. Recommend close cardiology follow-up. Clinical correlation with echocardiogram derived ejection fraction. Inability to exercise by itself can lead to increased cardiovascular event risks. Consider cardiology consultation and or follow-up if clinically indicated. I AM AVAILABLE FOR CARDIOLOGY CONSULTATION AND FOLLOWUP IF REQUESTED BY PMD Michael Johnston M.D., [employer] Dry [employer] Operator soap inspector, Board certified in cardiovascular diseases, Nuclear cardiology, Echocardiography Cardiac CT and cardiac MRI Ph. [phone] [facility] HOSPITALAleja
--- NOTE | 2017-03-14 18:42 | PDOC PROGRESS REPORT ---
Subjective Progress Note for:: 03/14/17 Subjective:: Patient seems to be doing better with gradual improvement. Pt is denying any chest arm or neck discomfort. Patient denying any PND, orthopnea. Patient denied any sustained palpitations, dizziness, syncope, near syncope. Patient denying any fever chills. Patient denying any other significant discomfort. Patient is maintaining sinus rhythm. Nuclear stress test procedure was explained to the patient in detail. Risks benefits were discussed and informed consent was obtained. Alternatives were discussed. Patient informed that based on risk factors, physical exam, lab data findings and symptoms there is at least intermediate probability of underlying CAD. Nuclear stress test procedure was therefore scheduled. Review of systems: Rest review of systems negative. Medications: Medications have been reviewed. Physical Exam Vital Signs: Temp Pulse Resp BP Pulse Ox 97.4 F 59 L 18 148/96 H 98 03/14/17 15:45 03/14/17 15:45 03/14/17 15:45 03/14/17 15:45 03/14/17 15:45 Intake & Output 03/13/17 03/14/17 03/15/17 06:59 06:59 06:59 Intake Total 1219 120 250 Output Total 200 Balance 1219 -80 250 Weight 64.8 kg 66.1 kg Exam: GENERAL: well-nourished and in no acute distress. Alert and oriented x3 HEAD: Atraumatic, normocephalic. EYES: Pupils equal round and reactive to light, extraocular movements intact, sclera anicteric, conjunctiva are normal. ENT: TMs normal, nares patent, oropharynx clear without exudates. Moist mucous membranes. No oral ulcerations or bleeding gums noted NECK: supple without lymphadenopathy. Trachea is central. No cervical or axillary lymphadenopathy noted. Carotids are 2+, JVD WNL LUNGS: Respiration seems nonlabored, no significant accessory muscle action noted. Breath sounds clear to auscultation bilaterally and equal noted. No wheezes rales or rhonchi noted. No significant dullness noted on percussion. CHEST: Palpation of the chest wall shows no significant chest wall tenderness. No other significant abnormalities noted. 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 ABDOMEN: Soft, no significant tenderness appreciated, normoactive bowel sounds. No guarding, no rebound. No rigidity noted . No masses appreciated. EXTREMITIES: Pedal pulses are 1-2+, no calf tenderness noted. No clubbing or cyanosis.trace pedal edema noted. Below knee amputation noted on the right side. NEUROLOGICAL: Focused neurological exam showed no significant neurologic deficit. Normal speech, no focal weakness appreciated. PSYCH: Normal mood, normal affect. Judgment and insight within normal limits. SKIN: No significant ecchymosis, rash, ulcerations or signs of pruritus noted. MUSCULOSKELETAL EXAM: No significant joint swelling noted. Results Laboratory Results: 03/14/17 06:12 03/14/17 06:12 03/14/17 03/14/17 03/14/17 06:12 06:12 07:30 WBC 7.3 RBC 4.27 Hgb 13.9 Hct 40.3 MCV 95 MCH 32.6 MCHC 34.5 RDW 13.6 Plt Count 229 Sodium 141.4 Potassium 3.5 L Chloride 103 Carbon Dioxide 29 Anion Gap 9 BUN 21 H Creatinine 1.24 Est GFR ( Amer) 51 L Est GFR (Non-Af Amer) 43 L Glucose 105 Calcium 9.6 Urine Color LIGHT YELLOW Urine Appearance SLIGHTLY HAZY Urine pH 6.0 Ur Specific [place] 1.005 Urine Protein NEGATIVE Urine Glucose (UA) NEGATIVE Urine Ketones NEGATIVE Urine Blood SMALL H Urine Nitrite POSITIVE H Ur Leukocyte Esterase TRACE H Ur Squamous Epith Cells FEW 03/12/17 03/12/17 03/13/17 17:45 22:05 03:39 CK-MB (CK-2) 1.31 1.14 0.88 Troponin I 0.321 0.314 0.287 EKG Comments: Twelve-lead EKG reviewed shows improvement in T-wave inversions Impressions: Chest X-Ray 03/12/17 11:19 IMPRESSION: Obstructive lung disease. No acute infiltrates. Radiopaque right coronary stents Renal Ultrasound 03/13/17 00:00 IMPRESSION: No evidence for urinary obstruction. Assessment & Plan - Diagnosis (1) Non-STEMI (non-ST elevated myocardial infarction) Is this a current diagnosis for this admission?: Yes (2) Chest pain Qualifiers: Chest pain type: unspecified Qualified Code(s): R07.9 - Chest pain, unspecified Is this a current diagnosis for this admission?: Yes (3) Hypertensive emergency Is this a current diagnosis for this admission?: Yes (4) Dyslipidemia Is this a current diagnosis for this admission?: Yes (5) Acute kidney injury Is this a current diagnosis for this admission?: Yes (6) Tobacco abuse Is this a current diagnosis for this admission?: Yes - Notes Notes: Nuclear stress test showed a small area of mild ischemia. Patient relatively asymptomatic. Feel that medical management would be an appropriate initial option. Patient has been strongly advised to quit smoking. Recommend Treatment with aspirin, long-term, Plavix at least one month if not longer, high potency statin, SANDOVAL inhibitor and beta-devyn. Patient can follow-up with me. Non-STEMI: Most likely related to acute coronary syndrome based on EKG changes and symptoms of chest pain on admission. Patient actually has been chest pain- free and has done reasonably well on medical management. Nuclear stress test results were discussed. Based on the small area of mild ischemia, patient is being suggested medical management. Discussed that if medical management fails then heart catheterization would be indicated. Patient's daughter also in the room. Chest pain: Most likely related to acute coronary syndrome. There has been no recurrence of chest discomfort. This could have been precipitated by severe hypertension in setting of underlying CAD. Hypertensive emergency: This has improved. Blood pressure goal is 135/85 or less in this lady. Blood pressures goals were discussed with the patient and currently reasonably well controlled. Dyslipidemia: LDL goal is less than 70. Continue with high potency statin therapy. Acute kidney injury: Most likely related to severe hypertension. This was one factor in choosing nuclear stress test as initial diagnostic strategy rather than heart catheterization. Currently improved. Tobacco abuse: Patient is strongly advised against tobacco abuse. - Time Time with patient: Greater than 35 minutes - CODE STATUS was discussed, patient remains full code. Surrogate decision-maker unchanged. Multiple medical problems were addressed. More than 50% of the time spent coordinating care, discussing management plans with involved caregivers. Management plans discussed with involved personnels. Medical decision making was of moderate to high complexity, patient's has multiple comorbidities. Approximately 50 minutes total spent in taking care of this lady. She was seen in the morning, after stress test and also in the evening when results were discussed and management plans were also discussed. Medications reviewed and adjusted accordingly: Yes
[2017-03-14 19:28] VITALS: BP 135/69
--- NOTE | 2017-03-14 20:28 | PDOC DISCHARGE SUMMARY ---
General - Admit/Disc Date/PCP Admission Date/Primary Care Provider: 03/12/17 15:45 MARIAN GO MD Discharge Date: 03/14/17 - Discharge Diagnosis (1) Non-STEMI (non-ST elevated myocardial infarction) Is this a current diagnosis for this admission?: Yes (2) Hypertensive emergency Is this a current diagnosis for this admission?: Yes (3) Acquired absence of right leg below knee Is this a current diagnosis for this admission?: Yes (4) Acute kidney injury Is this a current diagnosis for this admission?: Yes - Additional Information Resuscitation Status: Full Code Discharge Diet: Cardiac Discharge Activity: Activity As Tolerated, Balance Activity w/Rest, Weigh Daily Home Medications: Oxycodone HCl 20 mg PO Q4HP PRN 03/12/17 Zolpidem Tartrate [Ambien] 10 mg PO HSP PRN 03/12/17 Aspirin [Ecotrin 325 mg EC Tablet] 325 mg PO DAILY #90 tabec 03/14/17 Atorvastatin Calcium [Lipitor 80 mg Tablet] 80 mg PO QHS #90 tablet 03/14/17 Clopidogrel Bisulfate [Plavix 75 mg Tablet] 75 mg PO DAILY #90 tablet 03/14/17 Lisinopril [Prinivil] 20 mg PO DAILY #30 tablet 03/14/17 Metoprolol Succinate [Toprol Xl 50 mg Tab.sr] 200 mg PO DAILY #30 tab.sr.24h Nicotine [Nicoderm 21 mg/24 Hr Transderm Patch] 1 each TD NOON patch.td24 03/14 History of Present Illness History of Present Illness: USAMA SULLIVAN is a 71 year old female, She has a history of coronary artery disease, history of coronary artery stent placement many years ago, history of peripheral vascular disease 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 She came to the emergency room for evaluation of chest pressure that started on Friday the chest pressure is intermittent in character , on Friday the chest pressure subsided and then today she experienced another episode of chest pressure. In the emergency room the blood pressure recorded was severely elevated at 200 systolic, the troponin was 0.2 the 12-lead EKG did not show any ST T-segment deviation, it was sinus rhythm she has a history of poor medication adherence Hospital Course Hospital Course: Patient was admitted for the management of acute non-ST elevated myocardial infarction, she was treated with Plavix, Lovenox, aspirin, beta-devyn, SANDOVAL inhibitors she was seen in consultation by cardiology Dr. Johnston she underwent Cardiolite Lexiscan stress test, it showed mild ischemia in the mid and basilar inferior wall with a low ejection fraction of left ventricle, medical management was advised. Patient was counseled of the need to stop smoking completely. Physical Exam Vital Signs: Temp Pulse Resp BP Pulse Ox 97.4 F 59 L 18 135/69 H 98 03/14/17 19:25 03/14/17 19:25 03/14/17 19:25 03/14/17 19:25 03/14/17 19:25 Intake & Output 03/13/17 03/14/17 03/15/17 06:59 06:59 06:59 Intake Total 1219 120 260 Output Total 200 Balance 1219 -80 260 Weight 64.8 kg 66.1 kg General appearance: PRESENT: no acute distress, well-developed, well-nourished Head exam: PRESENT: atraumatic, normocephalic Eye exam: PRESENT: conjunctiva pink, EOMI, PERRLA Neck exam: PRESENT: full ROM Respiratory exam: PRESENT: clear to auscultation shashank Cardiovascular exam: PRESENT: RRR, +S1, +S2 Vascular exam: PRESENT: normal capillary refill GI/Abdominal exam: PRESENT: normal bowel sounds, soft Rectal exam: PRESENT: deferred Neurological exam: PRESENT: alert Psychiatric exam: PRESENT: appropriate affect, normal mood Skin exam: PRESENT: dry, intact, warm Results Laboratory Results: 03/14/17 06:12 03/14/17 06:12 03/14/17 03/14/17 03/14/17 06:12 06:12 07:30 WBC 7.3 RBC 4.27 Hgb 13.9 Hct 40.3 MCV 95 MCH 32.6 MCHC 34.5 RDW 13.6 Plt Count 229 Sodium 141.4 Potassium 3.5 L Chloride 103 Carbon Dioxide 29 Anion Gap 9 BUN 21 H Creatinine 1.24 Est GFR ( Amer) 51 L Est GFR (Non-Af Amer) 43 L Glucose 105 Calcium 9.6 Urine Color LIGHT YELLOW Urine Appearance SLIGHTLY HAZY Urine pH 6.0 Ur Specific [place] 1.005 Urine Protein NEGATIVE Urine Glucose (UA) NEGATIVE Urine Ketones NEGATIVE Urine Blood SMALL H Urine Nitrite POSITIVE H Ur Leukocyte Esterase TRACE H Ur Squamous Epith Cells FEW 03/12/17 03/12/17 03/13/17 17:45 22:05 03:39 CK-MB (CK-2) 1.31 1.14 0.88 Troponin I 0.321 0.314 0.287 Impressions: Chest X-Ray 03/12/17 11:19 IMPRESSION: Obstructive lung disease. No acute infiltrates. Radiopaque right coronary stents Renal Ultrasound 03/13/17 00:00 IMPRESSION: No evidence for urinary obstruction.
--- NOTE | 2017-03-15 00:14 | EKG REPORT ---
SEVERITY:- ABNORMAL ECG - SINUS RHYTHM LEFT AXIS DEVIATION LVH WITH SECONDARY REPOLARIZATION ABNORMALITY ANTERIOR Q WAVES, POSSIBLY DUE TO LVH PROLONGED QT INTERVAL : Confirmed by: Michael Johnston 15-Mar-2017 00:13:00
== END 2017-03-14 19:50 | disposition home or self-care (01) | DRG 281 ==
LOC: ER 10:45 → EH 14:52 → UNDOADMIN 14:52 → EH 15:45 → 3W 18:32
PROVIDERS: ADMIT Internal Medicine; ATTEND Internal Medicine
DX: I21.4 Non-ST elevation (NSTEMI) myocardial infarction (principal); I16.1 Hypertensive emergency; N17.9 Acute kidney failure, unspecified; I10 Essential (primary) hypertension; E78.5 Hyperlipidemia, unspecified; K21.9 Gastro-esophageal reflux disease without esophagitis; F17.210 Nicotine dependence, cigarettes, uncomplicated; I25.2 Old myocardial infarction; Z88.0 Allergy status to penicillin; Z88.2 Allergy status to sulfonamides; Z91.040 Latex allergy status; Z89.511 Acquired absence of right leg below knee
CPT/HCPCS: 36415; 71020; 76770; 78452; 80048; 80053; 80061; 81001; 82553; 84100; 84484; 85025; 85027; 85610; 85730; 93005; 93010; 93017; 93306; 99285; A9500; J0280; J1650; J2785; J3490; Q9969

== ENCOUNTER 2017-04-02 11:50 | Emergency (ER) | payer MEDICARE, OTHER ==
[2017-04-02] MEDS ORDERED: ASPIRIN 325 MG TABLET PO ONE (12:16)
--- NOTE | 2017-04-02 12:18 | ER Document Report ---
ED Medical Screen (RME) - General Chief Complaint: Shortness Of Breath Stated Complaint: CHEST PAIN,SHORTNESS OF BREATH Time Seen by Provider: 04/02/17 12:16 Mode of Arrival: Wheelchair Information source: Patient TRAVEL OUTSIDE OF THE [place] IN LAST 30 DAYS: No - HPI Patient complains to provider of: CP Onset: This morning - pt with onset of SSCP starting this am -- was recently d/c 'd from [facility] with [place] - Related Data Allergies/Adverse Reactions: latex [Latex] Allergy (Verified 05/23/15 13:24) Penicillins Allergy (Verified 05/23/15 13:24) Sulfa (Sulfonamide Antibiotics) Allergy (Verified 05/23/15 13:24) Past Medical History - Social History Frequency of alcohol use: None Drug Abuse: None - Past Medical History Cardiac Medical History: Reports: Hx Coronary Artery Disease - Stents placed previously., Hx Heart Attack, Hx Hypercholesterolemia, Hx Hypertension, Hx Peripheral Vascular Disease Pulmonary Medical History: Reports: Hx COPD Renal/ Medical History: Denies: Hx Peritoneal Dialysis GI Medical History: Reports: Hx Gastroesophageal Reflux Disease Past Surgical History: Reports: Hx Orthopedic Surgery - Rt BKA, neck - Immunizations Hx Diphtheria, Pertussis, Tetanus Vaccination: No Physical Exam - Vital signs Vitals: Temp Pulse Resp BP Pulse Ox 97.6 F 88 24 H 206/91 H 97 04/02/17 11:58 04/02/17 11:58 04/02/17 11:58 04/02/17 11:58 04/02/17 11:58 Course - Vital Signs Vital signs: Temp Pulse Resp BP Pulse Ox 97.6 F 88 24 H 206/91 H 97 04/02/17 11:58 04/02/17 11:58 04/02/17 11:58 04/02/17 11:58 04/02/17 11:58
--- NOTE | 2017-04-02 13:08 | RADIOLOGY REPORT (SQ) ---
EXAM DESCRIPTION: CHEST PA/LAT COMPLETED DATE/TIME: 04/02/2017 12:49 pm REASON FOR STUDY: cp COMPARISON: 03/12/2017, 05/23/2015 EXAM PARAMETERS: NUMBER OF VIEWS: two views TECHNIQUE: Digital Frontal and Lateral radiographic views of the chest acquired. RADIATION DOSE: NA LIMITATIONS: Artifact from clothing on the frontal film FINDINGS: LUNGS AND PLEURA: No opacities, masses or pneumothorax. No pleural effusion. MEDIASTINUM AND HILAR STRUCTURES: No masses or contour abnormalities. HEART AND VASCULAR STRUCTURES: Heart normal size. No evidence for failure. BONES: No acute findings. HARDWARE: None in the chest. OTHER: No other significant finding. IMPRESSION: NO SIGNIFICANT RADIOGRAPHIC FINDING IN THE CHEST. TECHNICAL DOCUMENTATION: JOB ID: [id number] [employer]- All Rights Reserved
[2017-04-02 13:14] LABS: ALANINE AMINOTRANSFERASE 24 U/L (9-52); ALBUMIN 4.6 g/dL (3.5-5.0); ALKALINE PHOSPHATASE 111 U/L (38-126); ANION GAP 11 (5-19); ASPARTATE AMINO TRANSFERASE 14 U/L (14-36); BILIRUBIN,DIRECT 0.4 mg/dL (0.0-0.4); BILIRUBIN,TOTAL 0.6 mg/dL (0.2-1.3); BLOOD UREA NITROGEN 10 mg/dL (7-20); CALCIUM 10.1 mg/dL (8.4-10.2); CARBON DIOXIDE 28 mmol/L (22-30); CHLORIDE 100 mmol/L (98-107); CREATINE KINASE 34 U/L (30-135); GLUCOSE 151 mg/dL (75-110); POTASSIUM 4.5 mmol/L (3.6-5.0); SODIUM 139.4 mmol/L (137-145)
[2017-04-02 13:24] LABS: CREATINE KINASE MB 0.52 ng/mL (<4.55)
[2017-04-02 13:28] LABS: ABSOLUTE BASOPHILS # (AUTO) 0.1 10^3/uL (0.0-0.2); ABSOLUTE EOSINOPHILS # (AUTO) 0.2 10^3/uL (0.0-0.6); ABSOLUTE LYMPHOCYTES (AUTO) 1.1 10^3/uL (0.5-4.7); ABSOLUTE MONOCYTES (AUTO) 0.6 10^3/uL (0.1-1.4); ABSOLUTE NEUT (AUTO) 7.3 10^3/uL (1.7-8.2); BASOPHILS % (AUTO) 0.6 % (0-2); EOSINOPHILS % (AUTO) 2.3 % (0-6); HEMATOCRIT 43.2 % (36.0-47.0); HEMOGLOBIN 15.2 g/dL (12.0-15.5); HGB HCT DIFFERENCE 2.4; LYMPHOCYTES % (AUTO) 11.9 % (13-45); MEAN CORPUSCULAR HEMOGLOBIN 33.3 pg (27.0-33.4); MEAN CORPUSCULAR HGB CONC 35.1 g/dL (32.0-36.0); MEAN CORPUSCULAR VOLUME 95 fl (80-97); MONOCYTES % (AUTO) 6.2 % (3-13); RED BLOOD COUNT 4.55 10^6/uL (3.72-5.28); RED CELL DISTRIBUTION WIDTH 13.6 % (11.5-14.0); WHITE BLOOD COUNT 9.2 10^3/uL (4.0-10.5)
[2017-04-02 13:29] LABS: TROPONIN I < 0.012 ng/mL
--- NOTE | 2017-04-02 14:07 | ER Document Report ---
ED General - General Chief Complaint: Shortness Of Breath Stated Complaint: CHEST PAIN,SHORTNESS OF BREATH Time Seen by Provider: 04/02/17 12:16 Mode of Arrival: Wheelchair TRAVEL OUTSIDE OF THE [place] IN LAST 30 DAYS: No - HPI Notes: This is a 71-year-old female recently discharged with a non-STEMI on March 14. She presents with head congestion and purulent yellow nasal discharge. She awoke with this this morning as well she was having some chest pressure and mild shortness of breath both of which is almost have completely resolved. With the symptoms she did forget to take her lisinopril metoprolol Plavix and other medications. She did take these yesterday. Symptoms are almost gone at this point now. She has had no fever. No pleuritic components. Her non-STEMI was treated with medical management. She does continue to smoke. - Related Data Allergies/Adverse Reactions: latex [Latex] Allergy (Verified 05/23/15 13:24) Penicillins Allergy (Verified 05/23/15 13:24) Sulfa (Sulfonamide Antibiotics) Allergy (Verified 05/23/15 13:24) Past Medical History - General Information source: Patient - Social History Smoking Status: Current Every Day Smoker Frequency of alcohol use: None Drug Abuse: None Family History: Reviewed & Not Pertinent, Hypertension - Past Medical History Cardiac Medical History: Reports: Hx Coronary Artery Disease - Stents placed previously., Hx Heart Attack, Hx Hypercholesterolemia, Hx Hypertension, Hx Peripheral Vascular Disease Pulmonary Medical History: Reports: Hx COPD Renal/ Medical History: Denies: Hx Peritoneal Dialysis GI Medical History: Reports: Hx Gastroesophageal Reflux Disease Past Surgical History: Reports: Hx Orthopedic Surgery - Rt BKA, neck - Immunizations Hx Diphtheria, Pertussis, Tetanus Vaccination: No Hx Pneumococcal Vaccination: 05/18/10 Review of Systems - Review of Systems -: Yes All other systems reviewed and negative Physical Exam - Vital signs Vitals: Temp Pulse Resp BP Pulse Ox 97.6 F 88 24 H 206/91 H 97 04/02/17 11:58 04/02/17 11:58 04/02/17 11:58 04/02/17 11:58 04/02/17 11:58 - Notes Notes: Physical Exam: GENERAL: VS as per nursing doc. Well-appearing, well-nourished and in no acute distress. HEAD: Atraumatic, normocephalic. EYES: Pupils equal round and reactive to light, extraocular movements intact, sclera anicteric, no conjunctival injection or discharge. ENT: Nares patent, oropharynx clear without exudates. Moist mucous membranes. Dentures in place NECK: Normal range of motion, supple without lymphadenopathy. No JVD. No Carotid Bruits. LUNGS: Coarse breath sounds, minimal wheezing at end expiratory phase. HEART: Normal S1S2. Regular rate and rhythm without murmurs. Equal peripheral pulses. ABDOMEN: Soft, non-tender. No pulsatile mass. EXTREMITIES: Normal range of motion. No calf tenderness. Negative Homans. No edema. Right BKA noted NEUROLOGICAL: Cranial nerves grossly intact. Normal speech. Normal sensory and motor exams. No gross cerebellar abnormalities. PSYCH: Normal mood, normal affect. SKIN: Warm, dry, no cyanosis, no splinter hemorrhages. Cap refill < 2 sec. Course - Re-evaluation Re-evalutation: 04/02/17 17:13 Patient defers admission. With her recent Non-STEMI, I discussed with her mandatory control of her blood pressure. We gave her doses of her beta-devyn and SANDOVAL inhibitor with blood pressure decreasing to 128/97. She finally did let me do a second troponin which was negative. Clinically she does have some facial tenderness and suspect she has acute sinusitis as well. We will discharge her on Levaquin. She has been encouraged not to smoke as well. - Vital Signs Vital signs: Temp Pulse Resp BP Pulse Ox 97.6 F 88 24 H 206/91 H 97 04/02/17 11:58 04/02/17 11:58 04/02/17 11:58 04/02/17 11:58 04/02/17 11:58 - Laboratory Result Diagrams: 04/02/17 12:35 04/02/17 12:35 Laboratory results interpreted by me: 04/02/17 04/02/17 12:35 12:35 Seg Neutrophils % 79.0 H Lymphocytes % 11.9 L Est GFR (Non-Af Amer) 55 L Glucose 151 H - Diagnostic Test Radiology reviewed: Image reviewed, Reports reviewed Radiology results interpreted by me: 04/02/17 14:05 Non-acute - EKG Interpretation by Wy EKG shows normal: Sinus rhythm - Normal sinus rhythm with left axis deviation. PAC noted. LVH with repolarization abnormalities. No significant change from . Discharge - Discharge Clinical Impression: Acute sinusitis, Chest pain, Uncontrolled hypertension, Tobacco abuse Condition: Good Disposition: HOME, SELF-CARE Additional Instructions: Please ensure you take all of the antibiotics until gone. Please make sure you get follow-up with your physician as well as take your medications as scheduled. Return for any problem or concern. Prescriptions: Levofloxacin [Levaquin 750 mg Tablet] 750 mg PO DAILY #10 tablet Forms: Smoking Cessation Education, Elevated Blood Pressure Referrals: MARIAN GO MD [ACTIVE STAFF] - Follow up in 3-5 days
[2017-04-02] MEDS ORDERED: CLOPIDOGREL BISULFATE 75 MG TABLET PO ONE (14:14)
[2017-04-02] MEDS ORDERED: METOPROLOL TARTRATE PF/INJ 5 MG/5 ML SDV IV ONE (14:14)
[2017-04-02] MEDS ORDERED: ENALAPRILAT DIHYDRATE INJ/PF 1.25 MG/1 ML SDV IV ONE (15:08)
[2017-04-02 18:17] VITALS: BP 128/97
--- NOTE | 2017-04-02 22:58 | EKG REPORT ---
SEVERITY:- ABNORMAL ECG - SINUS RHYTHM ATRIAL PREMATURE COMPLEX LEFT AXIS DEVIATION LVH WITH SECONDARY REPOLARIZATION ABNORMALITY : Confirmed by: Michael Johnston 02-Apr-2017 22:58:11
== END 2017-04-02 17:29 | disposition home or self-care (01) ==
LOC: ER 11:50
DX: J01.90 Acute sinusitis, unspecified (principal); I10 Essential (primary) hypertension; R07.9 Chest pain, unspecified; R06.02 Shortness of breath; R09.81 Nasal congestion; R09.89 Other specified symptoms and signs involving the circulatory and respiratory systems; Z79.899 Other long term (current) drug therapy; F17.200 Nicotine dependence, unspecified, uncomplicated
CPT/HCPCS: 93005; 99285; 96374; 96375; 36415; 82553; 82550; 85025; 80053; 84484; 71020; 93010; A9270 ×2; J3490 ×2

== ENCOUNTER 2017-08-22 02:31 | Emergency (ER) | payer MEDICARE, OTHER ==
--- NOTE | 2017-08-22 02:53 | ER Document Report ---
ED General - General TRAVEL OUTSIDE OF THE [place] IN LAST 30 DAYS: No <KELSY DUMAS - Last Filed: 08/22/17 05:46> <MICHAEL MONZON - Last Filed: 08/22/17 10:52> - General Chief Complaint: Chest Pain Stated Complaint: CHEST PAIN Time Seen by Provider: 08/22/17 02:51 Notes: Patient is a 72-year-old female presents with complaint of chest pain. Chest pain is worse in the entire anterior chest. No radiation to the back. Some pain going down left arm. She does have previous history of NH. She said that NH was between 5-10 years ago. She had cardiac stents placed at that time. She does not follow with a direct care professional. She is followed by Dr. Cheema. She says she has been having intermittent chest pain now for a few days but tonight to become constant. No vomiting. (KELSY DUMAS) - Related Data Allergies/Adverse Reactions: latex [Latex] Allergy (Verified 08/22/17 02:33) Penicillins Allergy (Verified 08/22/17 02:33) Sulfa (Sulfonamide Antibiotics) Allergy (Verified 08/22/17 02:33) Past Medical History - Social History Smoking Status: Current Every Day Smoker Frequency of alcohol use: None Drug Abuse: None Family History: Reviewed & Not Pertinent, Hypertension - Past Medical History Cardiac Medical History: Reports: Hx Coronary Artery Disease - Stents placed previously., Hx Heart Attack, Hx Hypercholesterolemia, Hx Hypertension, Hx Peripheral Vascular Disease Pulmonary Medical History: Reports: Hx COPD Renal/ Medical History: Denies: Hx Peritoneal Dialysis GI Medical History: Reports: Hx Gastroesophageal Reflux Disease Past Surgical History: Reports: Hx Orthopedic Surgery - Rt BKA, neck - Immunizations Hx Diphtheria, Pertussis, Tetanus Vaccination: No Hx Pneumococcal Vaccination: 05/18/10 <KELSY DUMAS - Last Filed: 08/22/17 05:46> Review of Systems <KELSY DUMAS - Last Filed: 08/22/17 05:46> <MICHAEL MONZON - Last Filed: 08/22/17 10:52> - Review of Systems Notes: My Normal Review Basic REVIEW OF SYSTEMS: CONSTITUTIONAL : Denies fever, chills, or sweats. Denies recent illness. EENT: Denies eye, ear, throat, or mouth pain or symptoms. Denies nasal or sinus congestion. CARDIOVASCULAR: Has chest pain RESPIRATORY: Denies cough, cold, or chest congestion. Denies shortness of breath, difficulty breathing, or wheezing. GASTROINTESTINAL: Denies abdominal pain. Denies nausea, vomiting, or diarrhea. Denies constipation. Last BM: GENITOURINARY: Denies difficulty urinating, painful urination, burning, frequency, or blood in urine. SKIN: Denies rash or skin lesions. NEUROLOGICAL: Denies altered mental status or loss of consciousness. Denies headache. Denies weakness or paralysis or loss of use of either side. Denies problems with gait or speech. Denies sensory or motor loss. ALL OTHER SYSTEMS REVIEWED AND NEGATIVE. (KELSY DUMAS) Physical Exam <KELSY DUMAS - Last Filed: 08/22/17 05:46> <MICHAEL MONZON - Last Filed: 08/22/17 10:52> - Vital signs Vitals: Resp BP Pulse Ox 27 H 196/107 H 99 08/22/17 03:06 08/22/17 03:06 08/22/17 03:06 - Notes Notes: General Appearance: Well nourished, alert, cooperative, no acute distress, no obvious discomfort. Clinically well appearing. Vitals: reviewed, See vital signs table. Head: no swelling or tenderness to the head Eyes: PERRL, EOMI, Conjuctiva clear Mouth: No decreasd moisture Lungs: No wheezing, No rales, No rhonci, No accessory muscle use, good air exchange bilaterally. Heart: Normal rate, Regular rythm, No murmur, no rub Abdomen: Normal BS, soft, No rigidity, No abdominal tenderness, No guarding, no rebound, no abdominal masses, no organomegaly Extremities: strength 5/5 in all extremities, good pulses in all extremities, no swelling or tenderness in the extremities, no edema. Skin: warm, dry, appropriate color, no rash Neuro: speech clear, oriented x 3, normal affect, responds appropriately to questions. (KELSY DUMAS) Course - Laboratory Result Diagrams: 08/22/17 03:10 08/22/17 03:10 <KELSY DUMAS - Last Filed: 08/22/17 05:46> - Laboratory Result Diagrams: 08/22/17 03:10 08/22/17 03:10 <MICHAEL MONZON - Last Filed: 08/22/17 10:52> - Re-evaluation Re-evalutation: 08/22/17 05:51 Patient's chest pain resolved with the nitro drip. Her EKG changes also resolved. Patient has unstable angina. Patient needs a heart catheterization based on the fact that she has recurrent chest pain when off nitro and has significant EKG changes while having chest pain. I did call [facility]. They are on diversion and will not waitlist the patient. Also called [facility]. They also on diversion and will not wait list the patient. I called [facility] who agrees to accept the patient but does say it may be some time for bed availability. This is understandable. I am very appreciative them excepting the patient. I have given patient Lovenox. I have ordered repeat troponins. I have ordered a cardiac diet for the morning. I will keep the patient on nitro drip. I informed the patient of the plan and told her to inform us immediately if she has any recurrence of chest pain. Patient is agreeable to plan and patient will be closely monitored until transfer. Dictation of this chart was performed using voice recognition software; therefore, there may be some unintended grammatical errors. (KELSY DUMAS) 08/22/17 10:51 troponin .423 , pt already received lovenox. denise huitron pagehever (MICHAEL MONZON) - Vital Signs Vital signs: Temp Pulse Resp BP Pulse Ox 15 139/93 H 99 08/22/17 05:31 08/22/17 05:31 08/22/17 05:31 - Laboratory Laboratory results interpreted by me: 08/22/17 08/22/17 03:10 03:10 WBC 13.1 H RDW 14.1 H Potassium 3.3 L Carbon Dioxide 32 H Est GFR ( Amer) 58 L Est GFR (Non-Af Amer) 48 L Glucose 127 H AST 52 H - EKG Interpretation by Me Additional EKG results interpreted by me: 08/22/17 02:52 I was just brought the EKG from triage for this patient which shows ST segment depression but her new changes. There is no ST segment elevation. Informed the charge nurse, Tammie, the place patient in a bed now. She is trying to open a bed for the patient. 08/22/17 03:09 EKG is reviewed and interpreted by me. EKG shows normal sinus rhythm with a rate of [address] segment elevation. Patient does have ST segment depression in the lateral precordial leads as well as some ST segment depression in leads I and aVL. OR interval and QTc intervals are within normal range. QRS duration is within normal range. Old EKG for comparison is from April 02, 2017. 08/22/17 05:23 EKG #2 is reviewed and interpreted by me. EKG shows normal sinus rhythm with rate of [address] segment elevation. The previous ST segment depression the patient had a since resolved. OR interval, QRS duration, QTc intervals are within normal range. (KELSY DUMAS) Discharge <KELSY DUMAS - Last Filed: 08/22/17 05:46> <MICHAEL MONZON - Last Filed: 08/22/17 10:52> - Discharge Clinical Impression: Unstable angina Chest pain Qualifiers: Chest pain type: unspecified Qualified Code(s): R07.9 - Chest pain, unspecified Condition: Stable Disposition: [facility]
[2017-08-22] MEDS ORDERED: NITROGLYCERIN/D5W 50 MG/250 ML RTUINJ IV PRN (03:07)
[2017-08-22 03:23] LABS: ABSOLUTE BASOPHILS # (AUTO) 0.1 10^3/uL (0.0-0.2); ABSOLUTE EOSINOPHILS # (AUTO) 0.5 10^3/uL (0.0-0.6); ABSOLUTE MONOCYTES (AUTO) 1.3 10^3/uL (0.1-1.4); ABSOLUTE NEUT (AUTO) 8.1 10^3/uL (1.7-8.2); HEMATOCRIT 41.3 % (36.0-47.0); HEMOGLOBIN 14.3 g/dL (12.0-15.5); LYMPHOCYTES % (AUTO) 22.8 % (13-45); MEAN CORPUSCULAR HEMOGLOBIN 32.8 pg (27.0-33.4); MEAN CORPUSCULAR HGB CONC 34.5 g/dL (32.0-36.0); MEAN CORPUSCULAR VOLUME 95 fl (80-97); PLATELET COUNT 224 10^3/uL (150-450); RED BLOOD COUNT 4.35 10^6/uL (3.72-5.28); RED CELL DISTRIBUTION WIDTH 14.1 % (11.5-14.0); SEGMENTED NEUTROPHILS % (AUTO) 62.2 % (42-78); TOTAL CELLS COUNTED % (AUTO) 100 %; WHITE BLOOD COUNT 13.1 10^3/uL (4.0-10.5)
--- NOTE | 2017-08-22 03:28 | RADIOLOGY REPORT (SQ) ---
EXAM DESCRIPTION: CHEST SINGLE VIEW COMPLETED DATE/TIME: 08/22/2017 3:19 am REASON FOR STUDY: Chest pain COMPARISON: Chest x-ray 04/02/2017. EXAM PARAMETERS: NUMBER OF VIEWS: One view. TECHNIQUE: Single frontal radiographic view of the chest acquired. RADIATION DOSE: NA LIMITATIONS: None. FINDINGS: LUNGS AND PLEURA: No consolidation, pneumothorax or pleural effusion. MEDIASTINUM AND HILAR STRUCTURES: No masses. Contour normal. HEART AND VASCULAR STRUCTURES: Heart normal in size. Normal vasculature. BONES: No acute findings. HARDWARE: None in the chest. IMPRESSION: No acute radiographic finding in the chest. TECHNICAL DOCUMENTATION: JOB ID: [id number] [employer]- All Rights Reserved
[2017-08-22 03:38] LABS: ALANINE AMINOTRANSFERASE 19 U/L (9-52); ALBUMIN 4.5 g/dL (3.5-5.0); ALKALINE PHOSPHATASE 95 U/L (38-126); ANION GAP 10 (5-19); ASPARTATE AMINO TRANSFERASE 52 U/L (14-36); BILIRUBIN,DIRECT 0.2 mg/dL (0.0-0.4); BILIRUBIN,TOTAL 0.4 mg/dL (0.2-1.3); BLOOD UREA NITROGEN 17 mg/dL (7-20); CALCIUM 9.8 mg/dL (8.4-10.2); CARBON DIOXIDE 32 mmol/L (22-30); CHLORIDE 100 mmol/L (98-107); CREATINE KINASE 40 U/L (30-135); GLUCOSE 127 mg/dL (75-110); POTASSIUM 3.3 mmol/L (3.6-5.0); TOTAL PROTEIN 7.4 g/dL (6.3-8.2)
[2017-08-22 03:47] LABS: INTERNATIONAL RATION (INR) 0.88; PROTHROMBIN TIME 12.6 SEC (11.4-15.4)
[2017-08-22 03:50] LABS: CREATINE KINASE MB 0.49 ng/mL (<4.55); TROPONIN I 0.013 ng/mL
[2017-08-22] MEDS ORDERED: POTASSIUM CHLORIDE 10 MEQ TABLET.SA PO ONE (05:29)
[2017-08-22] MEDS ORDERED: ENOXAPARIN SODIUM INJ 60 MG/0.6 ML DISP.SYRIN SUBCUT SCH (05:45)
--- NOTE | 2017-08-22 08:07 | EKG REPORT ---
SEVERITY:- ABNORMAL ECG - SINUS RHYTHM LEFT AXIS DEVIATION LVH WITH SECONDARY REPOLARIZATION ABNORMALITY NONSPECIFIC ST-T CHANGES- INFERIOR LEADS : Confirmed by: Panda Goodrich MD 22-Aug-2017 08:06:43
--- NOTE | 2017-08-22 08:08 | EKG REPORT ---
SEVERITY:- ABNORMAL ECG - SINUS RHYTHM LEFT AXIS DEVIATION LVH WITH SECONDARY REPOLARIZATION ABNORMALITY ST DEPRESSION, CONSIDER ISCHEMIA, ANT-LAT LDS, COMPARED TO 04/02/17 EKG : Confirmed by: Panda Goodrich MD 22-Aug-2017 08:07:44
--- NOTE | 2017-08-22 12:39 | EKG REPORT ---
SEVERITY:- ABNORMAL ECG - SINUS RHYTHM LVH BY VOLTAGE , CANNOT R/O OLD ANTEROSEPTAL MO NONSPECIFIC T ABNORMALITIES, INFERIOR LEADS BORDERLINE PROLONGED QT INTERVAL : Confirmed by: Panda Goodrich MD 22-Aug-2017 12:38:31
[2017-08-22 12:48] VITALS: BP 167/86
== END 2017-08-22 13:00 | disposition short-term general hospital (02) ==
LOC: ER 02:31
DX: I20.0 Unstable angina (principal); R07.9 Chest pain, unspecified; M79.602 Pain in left arm; I25.2 Old myocardial infarction; F17.200 Nicotine dependence, unspecified, uncomplicated
CPT/HCPCS: 93005; 99285; 96365; 96366; 36415; 82553; 82550; 85025; 85610; 80053; 84484; 71045; 93010; J3490; A9270

== ENCOUNTER 2017-11-04 01:45 | Inpatient (IN) | payer MEDICARE, OTHER ==
--- NOTE | 2017-11-04 01:50 | ER Document Report ---
ED Extremity Problem, Lower - General Stated Complaint: RIGHT THIGH PAIN Time Seen by Provider: 11/04/17 01:49 Mode of Arrival: Medic Information source: Patient Notes: 72 yo smoker htn, hyperlipedemic, PVD (right BKA) female who lives with her son , started to get out of her wheelchair to get to the microwave, started moving and nothing to catch on, eased to the floor. Daughter got her up into the chair , and started having "darell horses" in right medial upper thigh which is new since this episode tonight at 23:30 pm, intermittent like the muscle gets tight. worse with movement. Took oxycodone 20mg at 24:00 Nothing else hurts. Takes oxycodone 20mg 4 times per day for neck and back pain, right leg if need it. PCP: dr. wilkins. Open heart surgery-3 stents 08-21-17. Her son states that he heard her fall on the ground. TRAVEL OUTSIDE OF THE [place] IN LAST 30 DAYS: No - Related Data Allergies/Adverse Reactions: latex [Latex] Allergy (Verified 08/22/17 02:33) Penicillins Allergy (Verified 08/22/17 02:33) Sulfa (Sulfonamide Antibiotics) Allergy (Verified 08/22/17 02:33) Past Medical History - General Information source: Patient - Social History Smoking Status: Current Every Day Smoker Frequency of alcohol use: None Drug Abuse: None Lives with: Family Family History: Reviewed & Not Pertinent, Hypertension - Medical History Notes: PVD - Past Medical History Cardiac Medical History: Reports: Hx Coronary Artery Disease - Stents placed previously., Hx Heart Attack, Hx Hypercholesterolemia, Hx Hypertension, Hx Peripheral Vascular Disease Pulmonary Medical History: Reports: Hx COPD Renal/ Medical History: Denies: Hx Peritoneal Dialysis GI Medical History: Reports: Hx Gastroesophageal Reflux Disease Past Surgical History: Reports: Hx Cardiac Catheterization - 3 stents, Hx Orthopedic Surgery - Rt BKA, neck - Immunizations Hx Diphtheria, Pertussis, Tetanus Vaccination: No Hx Pneumococcal Vaccination: 05/18/10 Review of Systems - Review of Systems Constitutional: No symptoms reported EENT: No symptoms reported Cardiovascular: No symptoms reported Respiratory: No symptoms reported Gastrointestinal: No symptoms reported Genitourinary: No symptoms reported Female Genitourinary: No symptoms reported Musculoskeletal: See HPI Skin: No symptoms reported Hematologic/Lymphatic: No symptoms reported Neurological/Psychological: No symptoms reported Physical Exam - Vital signs Vitals: Resp 13 11/04/17 01:52 Interpretation: Hypertensive - General General appearance: Appears well, Alert - HEENT Head: Normocephalic, Atraumatic Eyes: Normal Pupils: PERRL Pharynx: Normal Neck: Supple - Respiratory Respiratory status: No respiratory distress Chest status: Nontender Breath sounds: Normal Chest palpation: Normal - Cardiovascular Rhythm: Regular Heart sounds: Normal auscultation Murmur: No - Abdominal Inspection: Normal Distension: No distension Bowel sounds: Normal Tenderness: Nontender Organomegaly: No organomegaly - Back Back: Normal, Nontender - Extremities General upper extremity: Normal inspection, Nontender, Normal color, Normal ROM , Normal temperature General lower extremity: Normal inspection, Nontender, Normal color, Normal ROM , Normal temperature, Normal weight bearing. No: Odette's sign Thigh: Tender - right thigh, she is massaging the muscle, no swelling, no erythema, no muscle spasm, tender right great trochantur, she resists hip ROM due to pain Knee: Nontender Notes: right BKA over 10 years ago - Neurological Neuro grossly intact: Yes Cognition: Normal Orientation: AAOx4 [place] Coma Scale Eye Opening: Spontaneous [place] Coma Scale Verbal: Oriented [place] Coma Scale Motor: Obeys Commands [place] Coma Scale Total: 15 Speech: Normal Motor strength normal: LUE, RUE, LLE, RLE Sensory: Normal - Psychological Associated symptoms: Normal affect, Normal mood - Skin Skin Temperature: Warm Skin Moisture: Dry Skin Color: Normal Skin irregularity: negative: Rash Course - Re-evaluation Re-evalutation: 11/04/17 03:[address] hannah who is on-call for orthopedics about the acute mildly displaced intertrochanteric fracture of the right femur in the below knee amputation right leg. Dr. hannah states to have the hospitalist admit and he will take care of the rest. PCP is dr. wilkins who I will call for admission. 11/04/17 03:26 Dr. Wilkins will admit the patient, I advised him of her chronic high dose opiate usage. 11/04/17 04:04 itching without rash, still in pain. - Vital Signs Vital signs: Temp Pulse Resp BP Pulse Ox 98.3 F 19 186/83 H 95 11/04/17 03:03 11/04/17 02:06 11/04/17 02:06 11/04/17 02:06 - Laboratory Result Diagrams: 11/04/17 02:20 11/04/17 02:20 Laboratory results interpreted by me: 11/04/17 11/04/17 02:20 02:20 WBC 10.6 H RDW 15.2 H Seg Neutrophils % 79.5 H Lymphocytes % 11.1 L Absolute Neutrophils 8.4 H Est GFR ( Amer) 53 L Est GFR (Non-Af Amer) 44 L Glucose 123 H Discharge - Discharge Clinical Impression: Fractured right hip Condition: Good Disposition: ADMITTED INPATIENT [facility]: Surgical Floor
[2017-11-04] MEDS ORDERED: CYCLOBENZAPRINE HCL 10 MG TABLET PO ONE (02:09)
[2017-11-04] MEDS ORDERED: ACETAMINOPHEN 325 MG TABLET PO ONE (02:09)
[2017-11-04 02:30] LABS: ABSOLUTE BASOPHILS # (AUTO) 0.1 10^3/uL (0.0-0.2); ABSOLUTE EOSINOPHILS # (AUTO) 0.2 10^3/uL (0.0-0.6); ABSOLUTE LYMPHOCYTES (AUTO) 1.2 10^3/uL (0.5-4.7); ABSOLUTE MONOCYTES (AUTO) 0.7 10^3/uL (0.1-1.4); ABSOLUTE NEUT (AUTO) 8.4 10^3/uL (1.7-8.2); BASOPHILS % (AUTO) 0.7 % (0-2); EOSINOPHILS % (AUTO) 2.1 % (0-6); HEMATOCRIT 37.5 % (36.0-47.0); HEMOGLOBIN 12.2 g/dL (12.0-15.5); LYMPHOCYTES % (AUTO) 11.1 % (13-45); MEAN CORPUSCULAR HEMOGLOBIN 30.5 pg (27.0-33.4); MEAN CORPUSCULAR HGB CONC 32.6 g/dL (32.0-36.0); MEAN CORPUSCULAR VOLUME 94 fl (80-97); MONOCYTES % (AUTO) 6.6 % (3-13); PLATELET COUNT 230 10^3/uL (150-450); RED BLOOD COUNT 4.01 10^6/uL (3.72-5.28); RED CELL DISTRIBUTION WIDTH 15.2 % (11.5-14.0); SEGMENTED NEUTROPHILS % (AUTO) 79.5 % (42-78); TOTAL CELLS COUNTED % (AUTO) 100 %; WHITE BLOOD COUNT 10.6 10^3/uL (4.0-10.5)
--- NOTE | 2017-11-04 02:52 | RADIOLOGY REPORT (SQ) ---
EXAM DESCRIPTION: 1. Right hip, 2 views. 2. Right femur, 2 views. CLINICAL HISTORY: sat on floor getting out of wheelchair COMPARISON: None. FINDINGS: Right hip: Single view of the pelvis and lateral view of the right hip. Acute intertrochanteric fracture of the right femur with mild displacement. Postoperative change in the soft tissues adjacent to the hip as well as the pelvis. Vascular stent identified. Osteopenia. No left hip fracture identified. No other pelvic fracture identified. Degenerative change of the spine. Degenerative change of the sacroiliac joints. Right femur: 2 views of the right femur. Acute mildly displaced intertrochanteric fracture of the right femur. Osteopenia. Atherosclerotic vascular calcification. Degenerative change of the knee. No other fracture identified. IMPRESSION: 1. Acute mildly displaced trochanteric fracture of the right femur.
[2017-11-04 02:54] LABS: ALANINE AMINOTRANSFERASE 23 U/L (9-52); ALBUMIN 3.7 g/dL (3.5-5.0); ALKALINE PHOSPHATASE 99 U/L (38-126); ANION GAP 9 (5-19); ASPARTATE AMINO TRANSFERASE 19 U/L (14-36); BILIRUBIN,DIRECT 0.3 mg/dL (0.0-0.4); BILIRUBIN,TOTAL 0.3 mg/dL (0.2-1.3); BLOOD UREA NITROGEN 16 mg/dL (7-20); CALCIUM 9.2 mg/dL (8.4-10.2); CARBON DIOXIDE 29 mmol/L (22-30); CHLORIDE 106 mmol/L (98-107); GLUCOSE 123 mg/dL (75-110); POTASSIUM 4.1 mmol/L (3.6-5.0); SODIUM 144.2 mmol/L (137-145); TOTAL PROTEIN 6.7 g/dL (6.3-8.2)
[2017-11-04] MEDS ORDERED: NORMAL SALINE 1000 ML 1,000 ML IV ONE (03:01)
[2017-11-04] MEDS ORDERED: HYDROMORPHONE HCL INJ/PF 2 MG/ML AMPULE IV ONE ×2 (03:06→04:04)
[2017-11-04] MEDS ORDERED: DIPHENHYDRAMINE HCL 50 MG/ML VIAL IV ONE (04:04)
[2017-11-04] MEDS ORDERED: 1/2 NORMAL SALINE 1,000 ML IV PRN (06:54)
--- NOTE | 2017-11-04 09:25 | EKG REPORT ---
SEVERITY:- ABNORMAL ECG - SINUS RHYTHM VENTRICULAR PREMATURE COMPLEX PROBABLE LEFT ATRIAL ABNORMALITY CONSIDER ANTEROSEPTAL INFARCT BORDERLINE T ABNORMALITIES, DIFFUSE LEADS : Confirmed by: Michael Johnston 04-Nov-2017 09:24:58
--- NOTE | 2017-11-04 10:47 | PDOC CONSULTATION ---
Consultation Consult Date: 11/04/17 Consult reason:: Right intertrochanteric versus femoral neck fracture History of Present Illness Admission Date/PCP: 11/04/17 03:56 MARIAN GO MD Patient complains of: Right femoral fracture History of Present Illness: USAMA SULLIVAN is a 72 year old female with right below the knee amputation who presented to the emergency room after a fall complaining of right hip pain. She was diagnosed with right proximal femoral fracture in the emergency department. Orthopedic service is consulted for surgical management of the fracture. Past Medical History Cardiac Medical History: Reports: Coronary Artery Disease - Stents placed previously., Myocardial Infarction, Hyperlipidema, Hypertension, Peripheral Vascular Disease Pulmonary Medical History: Reports: Chronic Obstructive Pulmonary Disease (COPD) GI Medical History: Reports: Gastroesophageal Reflux Disease Psychiatric Medical History: Denies: Depression Past Surgical History Past Surgical History: Reports: Cardiac Catheterization - 3 stents, Orthopedic Surgery - Rt BKA, neck Social History Lives with: Family Smoking Status: Current Every Day Smoker Cigarettes Packs Per Day: 1 Number of Years Smokin Last Time Smoked: 11/03/17 Frequency of Alcohol Use: None Hx Recreational Drug Use: No Drugs: None Hx Prescription Drug Abuse: No Family History Family History: Reviewed & Not Pertinent, Hypertension Parental Family History Reviewed: Yes - Not pertinent Children Family History Reviewed: Yes Sibling(s) Family History Reviewed.: Yes Medication/Allergy Home Medications: Atorvastatin Calcium [Lipitor 10 mg Tablet] 10 mg PO QHS 11/04/17 Clopidogrel Bisulfate [Plavix 75 mg Tablet] 75 mg PO DAILY 11/04/17 Doxepin HCl [Silenor] 6 mg PO QHS 11/04/17 Lisinopril [Prinivil] 20 mg PO DAILY 11/04/17 Metoprolol Tartrate [Lopressor 25 mg Tablet] 25 mg PO Q12 11/04/17 Oxycodone HCl 20 mg PO Q6HP PRN 11/04/17 Zolpidem Tartrate [Ambien] 10 mg PO HSP PRN 11/04/17 Allergies/Adverse Reactions: latex [Latex] Allergy (Verified 08/22/17 02:33) Penicillins Allergy (Verified 08/22/17 02:33) Sulfa (Sulfonamide Antibiotics) Allergy (Verified 08/22/17 02:33) Review of Systems Constitutional: ABSENT: chills, fever(s), headache(s), weight gain, weight loss Eyes: ABSENT: visual disturbances Ears: ABSENT: hearing changes Cardiovascular: PRESENT: other - Patient reports she has many cardiovascular issues and has had heart surgery. 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 Respiratory: ABSENT: cough, hemoptysis Gastrointestinal: ABSENT: abdominal pain, constipation, diarrhea, hematemesis, hematochezia, nausea, vomiting Genitourinary: ABSENT: dysuria, hematuria Musculoskeletal: PRESENT: other - Patient underwent below-knee amputation many years ago due to vascular compromise. Presently she has right hip pain however this is managed currently with elevation, pain medication and refraining from initiation of motion. Physical Exam Vital Signs: Temp Pulse Resp BP Pulse Ox 37.1 C 83 12 133/71 H 92 11/04/17 07:11 11/04/17 07:11 11/04/17 07:11 11/04/17 07:11 11/04/17 07:11 Intake & Output 11/03/17 11/04/17 11/05/17 06:59 06:59 06:59 Weight 60.8 kg General appearance: PRESENT: no acute distress, well-developed, well-nourished Head exam: PRESENT: atraumatic, normocephalic Pulses: PRESENT: normal dorsalis pedis pul, +2 pedal pulses bilateral Vascular exam: PRESENT: normal capillary refill Extremities exam: PRESENT: tenderness Additional comments: Patient lying recumbent in hospital bed with right lower extremity elevated on multiple pillows. It is apparent the patient has had below-knee amputation of right lower extremity. Her right hip is flexed with slight internal rotation. She is tender to palpation along the greater trochanter of right hip. No evidence of ecchymosis. Moderate edema noted. No superficial abrasions or drainage noted. Due to pain on initiation of motion active range of motion was not tested. Patient does have full passive range of motion including flexion extension abduction abduction internal/external rotation of the right hip. She notes pain with passive range of adduction, abduction, internal/external rotation. She has no sensory motor deficits. Brisk capillary refill to toes on left lower extremity as well as bilateral fingers of upper extremities. +2 radial pulses bilaterally. Additional comments: Patient is presently nonambulatory. Results Impressions: Femur X-Ray 11/04/17 02:02 IMPRESSION: 1. Acute mildly displaced trochanteric fracture of the right femur. Hip/Pelvis X-Ray 11/04/17 02:02 IMPRESSION: 1. Acute mildly displaced trochanteric fracture of the right femur. Assessment & Plan - Diagnosis (1) Closed basicervical fracture of right femur Qualifiers: Encounter type: initial encounter Fracture alignment: displaced Qualified Code(s): S72.041A - Displaced fracture of base of neck of right femur , initial encounter for closed fracture Is this a current diagnosis for this admission?: Yes Plan: 72-year-old white female with right displaced basicervical femoral fracture. Patient will be placed on the surgical schedule for Friday, November 05, 2017 to undergo right femoral hemiarthroplasty versus open reduction internal fixation right proximal femur. She will remain n.p.o. after midnight in preparation for surgery tomorrow. We thank you for the consult and opportunity to continue the care of this patient.
[2017-11-04] MEDS: HYDROMORPHONE HCL INJ/PF 2 MG/ML AMPULE IV PRN ×4 (10:53→22:40)
[2017-11-04] MEDS ORDERED: (PENDING PHARMACY ID) (Lisinopril [Prinivil] 20 MG) PO SCH (18:15)
[2017-11-04] MEDS ORDERED: CLOPIDOGREL BISULFATE 75 MG TABLET PO ONE (19:00)
[2017-11-04] MEDS ORDERED: LISINOPRIL 10 MG TABLET PO ONE (19:00)
--- NOTE | 2017-11-04 20:40 | PDOC H&P ---
History of Present Illness Admission Date/PCP: 11/04/17 03:56 MARIAN GO MD History of Present Illness: USAMA SULLIVAN is a 72 year old female, She has history of coronary artery disease recently underwent coronary artery bypass grafting, August,, history of peripheral vascular disease status post right below-knee amputation, a recalcitrant smoker, with chronic pain syndrome on chronic opioid therapy she recently fell while trying to get out of the wheelchair to obtain objects form the kitchen cabinet. In the emergency room she was evaluated x-ray of the right hip was done, it showed acute intertrochanteric fracture of the right femur with mild displacement. Past Medical History Cardiac Medical History: Reports: Coronary Artery Disease - Stents placed previously., Myocardial Infarction, Hyperlipidema, Hypertension, Peripheral Vascular Disease Pulmonary Medical History: Reports: Chronic Obstructive Pulmonary Disease (COPD) GI Medical History: Reports: Gastroesophageal Reflux Disease Past Surgical History Past Surgical History: Reports: Cardiac Catheterization - 3 stents, Orthopedic Surgery - Rt BKA, neck Social History Lives with: Family Smoking Status: Current Every Day Smoker Cigarettes Packs Per Day: 1 Number of Years Smokin Last Time Smoked: 11/03/17 Frequency of Alcohol Use: None Hx Recreational Drug Use: No Drugs: None Hx Prescription Drug Abuse: No Family History Family History: Reviewed & Not Pertinent, Hypertension Parental Family History Reviewed: Yes Children Family History Reviewed: Yes Sibling(s) Family History Reviewed.: Yes Medication/Allergy Home Medications: Atorvastatin Calcium [Lipitor 10 mg Tablet] 10 mg PO QHS 11/04/17 Clopidogrel Bisulfate [Plavix 75 mg Tablet] 75 mg PO DAILY 11/04/17 Doxepin HCl [Silenor] 6 mg PO QHS 11/04/17 Lisinopril [Prinivil] 20 mg PO DAILY 11/04/17 Metoprolol Tartrate [Lopressor 25 mg Tablet] 25 mg PO Q12 11/04/17 Oxycodone HCl 20 mg PO Q6HP PRN 11/04/17 Zolpidem Tartrate [Ambien] 10 mg PO HSP PRN 11/04/17 Allergies/Adverse Reactions: latex [Latex] Allergy (Verified 08/22/17 02:33) Penicillins Allergy (Verified 08/22/17 02:33) Sulfa (Sulfonamide Antibiotics) Allergy (Verified 08/22/17 02:33) Review of Systems Constitutional: ABSENT: chills, fever(s), headache(s), weight gain, weight loss Eyes: ABSENT: visual disturbances Ears: ABSENT: hearing changes Cardiovascular: ABSENT: chest pain, dyspnea on exertion, edema, orthropnea, palpitations Respiratory: ABSENT: cough, hemoptysis Gastrointestinal: ABSENT: abdominal pain, constipation, diarrhea, hematemesis, hematochezia, nausea, vomiting Genitourinary: ABSENT: dysuria, hematuria Musculoskeletal: PRESENT: back pain, joint swelling Integumentary: ABSENT: rash, wounds Neurological: ABSENT: abnormal gait, abnormal speech, confusion, dizziness, focal weakness, syncope Psychiatric: ABSENT: anxiety, depression, homidical ideation, suicidal ideation Endocrine: ABSENT: cold intolerance, heat intolerance, menstrual abnormalities, polydipsia, polyuria Hematologic/Lymphatic: ABSENT: easy bleeding, easy bruising, lymphadenopathy Physical Exam Vital Signs: Temp Pulse Resp BP Pulse Ox 98.4 F 71 14 153/68 H 90 L 11/04/17 14:59 11/04/17 14:59 11/04/17 14:59 11/04/17 14:59 11/04/17 14:59 Intake & Output 11/03/17 11/04/17 11/05/17 06:59 06:59 06:59 Intake Total 720 Output Total 0 Balance 720 Weight 60.8 kg General appearance: PRESENT: no acute distress, well-developed, well-nourished Head exam: PRESENT: atraumatic, normocephalic Eye exam: PRESENT: conjunctiva pink, EOMI, PERRLA. ABSENT: scleral icterus Ear exam: PRESENT: normal external ear exam Mouth exam: PRESENT: moist, tongue midline Neck exam: PRESENT: full ROM. ABSENT: carotid bruit, JVD, lymphadenopathy, thyromegaly Respiratory exam: PRESENT: clear to auscultation shashank Cardiovascular exam: PRESENT: RRR, +S1, +S2 Pulses: PRESENT: normal dorsalis pedis pul, +2 pedal pulses bilateral Vascular exam: PRESENT: normal capillary refill GI/Abdominal exam: PRESENT: normal bowel sounds, soft. ABSENT: distended, guarding, mass, organolmegaly, rebound, tenderness Rectal exam: PRESENT: deferred Extremities exam: PRESENT: right BKA Neurological exam: PRESENT: alert, awake, oriented to person, oriented to place , oriented to time, oriented to situation, CN II-XII grossly intact Psychiatric exam: PRESENT: appropriate affect, normal mood Skin exam: PRESENT: dry, intact, warm Results Impressions: Femur X-Ray 11/04/17 02:02 IMPRESSION: 1. Acute mildly displaced trochanteric fracture of the right femur. Hip/Pelvis X-Ray 11/04/17 02:02 IMPRESSION: 1. Acute mildly displaced trochanteric fracture of the right femur. Assessment & Plan - Diagnosis (1) Trochanteric fracture of right femur Qualifiers: Encounter type: initial encounter Fracture type: closed Qualified Code(s) : S72.101A - Unspecified trochanteric fracture of right femur, initial encounter for closed fracture Is this a current diagnosis for this admission?: Yes Plan: Patient is medically stable for surgery. She just underwent coronary artery bypass grafting, August 2017 (2) Coronary artery disease Qualifiers: Coronary Disease-Associated Artery/Lesion type: [place] artery [place] vs. transplanted heart: [place] heart Associated angina: without angina Qualified Code(s): I25.10 - Atherosclerotic heart disease of [place] coronary artery without angina pectoris Is this a current diagnosis for this admission?: Yes
[2017-11-04] MEDS ORDERED: (PENDING PHARMACY ID) (Doxepin Hcl [Silenor] 6 MG) PO SCH (22:00)
[2017-11-04] MEDS: METOPROLOL TARTRATE 25 MG TABLET PO SCH (22:40)
[2017-11-04] MEDS: ATORVASTATIN CALCIUM 10 MG TABLET PO SCH (22:41)
[2017-11-05] MEDS: HYDROMORPHONE HCL INJ/PF 2 MG/ML AMPULE IV PRN ×4 (02:43→21:50)
[2017-11-05] MEDS ORDERED: HYDROMORPHONE HCL INJ/PF 2 MG/ML AMPULE IV ONE (09:30)
[2017-11-05] MEDS ORDERED: CLOPIDOGREL BISULFATE 75 MG TABLET PO SCH (10:00)
--- NOTE | 2017-11-05 10:23 | XCELERA REPORT ---
[address] [address] Transthoracic Echocardiogram Report Name: USAMA SULLIVAN Age: 72 yrs Gender: Female : 1945 Patient Status: Inpatient Patient Location: [address] [place] [address] Study Date: 11/05/2017 09:32 AM Height: 67 in Weight: 134 lb BSA: 1.7 m2 Procedure: A complete two-dimensional transthoracic echocardiogram was performed (2D, M-mode, spectral and color flow Doppler). The study was technically adequate with some images being suboptimal in quality. Reason For Study: SURGERY Ordering Physician: SAI RICHARDS Performed By: Denise Phan Interpretation Summary The left ventricular ejection fraction is normal. There is borderline concentric left ventricular hypertrophy. Doppler measurements suggest pseudonormalized left ventricular relaxation, which is associated with grade II/IV or mild to moderate diastolic dysfunction The left ventricle is grossly normal size. Wall motion cannot be accurately commented on, but no definite regional wall motion abnormalities noted. The right ventricular systolic function is normal. The right atrium is normal. Borderline left atrial enlargement. There is no mitral regurgitation noted. There is no mitral valve stenosis. No aortic regurgitation is present. There is no aortic valve stenosis No tricuspid regurgitation. There is no tricuspid stenosis. The aortic root is not well visualized but is probably normal size. The inferior vena cava was not well visualized There is no pericardial effusion. MMode/2D Measurements & Calculations RVDd: 3.1 cm LVIDd: 3.2 cm FS: 34.8 % Ao root diam: 2.8 cm IVSd: 1.3 cm LVIDs: 2.1 cm EDV(Teich): 42.0 ml LVPWd: 1.3 cm ESV(Teich): 14.5 ml Ao root area: 6.2 cm2 EF(Teich): 65.4 % Doppler Measurements & Calculations MV E max gonzalo: MV dec slope: Ao V2 max: LV V1 max P.2 cm/sec 107.9 cm/sec 2.6 mmHg MV A max gonzalo: 208.8 cm/sec2 Ao max PG: LV V1 max: 104.4 cm/sec MV dec time: 4.7 mmHg 80.4 cm/sec MV E/A: 0.44 0.22 sec PA V2 max: PI end-d gonzalo: 92.1 cm/sec 103.3 cm/sec PA max P.4 mmHg Left Ventricle The left ventricle is grossly normal size. There is borderline concentric left ventricular hypertrophy. The left ventricular ejection fraction is normal. Doppler measurements suggest pseudonormalized left ventricular relaxation, which is associated with grade II/IV or mild to moderate diastolic dysfunction. Wall motion cannot be accurately commented on, but no definite regional wall motion abnormalities noted. Right Ventricle The right ventricle is grossly normal size. There is normal right ventricular wall thickness. The right ventricular systolic function is normal. Atria The right atrium is normal. Borderline left atrial enlargement. Interarterial septum not well visualized and not well dopplered. Cannot comment on ASD/PFO presence. Mitral Valve The mitral valve is grossly normal. There is no mitral valve stenosis. There is no mitral regurgitation noted. Aortic Valve The aortic valve is grossly normal. There is no aortic valve stenosis. No aortic regurgitation is present. Tricuspid Valve The tricuspid valve is not well visualized, but is grossly normal. There is no tricuspid stenosis. No tricuspid regurgitation. Pulmonic Valve The pulmonic valve is not well visualized. Great Vessels The aortic root is not well visualized but is probably normal size. The inferior vena cava was not well visualized. Effusions There is no pericardial effusion. : SAI RICHARDS > Michael Johnston
--- NOTE | 2017-11-05 10:28 | PDOC CONSULTATION ---
History of Present Illness Admission Date/PCP: 11/04/17 03:56 MARIAN GO MD Patient complains of: R hip pain History of Present Illness: USAMA SULLIVAN is a 72 year old female, She has history of coronary artery disease recently underwent coronary artery bypass grafting, August,, history of peripheral vascular disease status post right below-knee amputation, a recalcitrant smoker, with chronic pain syndrome on chronic opioid therapy she recently fell while trying to get out of the wheelchair to obtain objects form the kitchen cabinet. In the emergency room she was evaluated x-ray of the right hip was done, it showed acute intertrochanteric fracture of the right femur with mild displacement. This history obtained by Dr. Stanley was reviewed and confirmed. On repeated questioning patient denied any chest pain. She denied any recent sustained palpitations, syncope, near syncope. Patient denied any shortness of breath any worse than her baseline.. Patient also denied any pedal edema. Past Medical History Cardiac Medical History: Reports: Coronary Artery Disease - Stents placed previously., Myocardial Infarction, Hyperlipidema, Hypertension, Peripheral Vascular Disease Pulmonary Medical History: Reports: Chronic Obstructive Pulmonary Disease (COPD) GI Medical History: Reports: Gastroesophageal Reflux Disease Psychiatric Medical History: Denies: Depression Past Surgical History Past Surgical History: Reports: Cardiac Catheterization - 3 stents, Coronary Artery Bypass Graft, Orthopedic Surgery - Rt BKA, neck, Vascular Surgery Social History Information Source: Patient Lives with: Family Smoking Status: Current Every Day Smoker Cigarettes Packs Per Day: 1 Number of Years Smokin Last Time Smoked: 11/03/17 Frequency of Alcohol Use: None Hx Recreational Drug Use: No Drugs: None Hx Prescription Drug Abuse: No - Advance Directive Resuscitation Status: Full Code Surrogate healthcare decision maker:: Daughter Family History Family History: Hypertension Parental Family History Reviewed: Yes Children Family History Reviewed: Yes Sibling(s) Family History Reviewed.: Yes Medication/Allergy Home Medications: Atorvastatin Calcium [Lipitor 10 mg Tablet] 10 mg PO QHS 11/04/17 Clopidogrel Bisulfate [Plavix 75 mg Tablet] 75 mg PO DAILY 11/04/17 Doxepin HCl [Silenor] 6 mg PO QHS 11/04/17 Lisinopril [Prinivil] 20 mg PO DAILY 11/04/17 Metoprolol Tartrate [Lopressor 25 mg Tablet] 25 mg PO Q12 11/04/17 Oxycodone HCl 20 mg PO Q6HP PRN 11/04/17 Zolpidem Tartrate [Ambien] 10 mg PO HSP PRN 11/04/17 Allergies/Adverse Reactions: latex [Latex] Allergy (Verified 08/22/17 02:33) Penicillins Allergy (Verified 08/22/17 02:33) Sulfa (Sulfonamide Antibiotics) Allergy (Verified 08/22/17 02:33) Review of Systems Constitutional: ABSENT: chills, fever(s), headache(s), weight gain, weight loss Eyes: ABSENT: visual disturbances Ears: ABSENT: hearing changes Cardiovascular: PRESENT: other - S/P CABG recently. ABSENT: chest pain, dyspnea on exertion, edema, orthropnea, palpitations Respiratory: PRESENT: dyspnea. ABSENT: cough, hemoptysis Gastrointestinal: PRESENT: constipation, heartburn. ABSENT: abdominal pain, diarrhea, hematemesis, hematochezia, nausea, vomiting Genitourinary: ABSENT: dysuria, hematuria Musculoskeletal: PRESENT: other - uses wheelchair. ABSENT: joint swelling Integumentary: ABSENT: rash, wounds Neurological: ABSENT: abnormal speech, confusion, dizziness, focal weakness, syncope Psychiatric: ABSENT: anxiety, depression, homidical ideation, suicidal ideation Endocrine: ABSENT: cold intolerance, heat intolerance, polydipsia, polyuria Hematologic/Lymphatic: ABSENT: easy bleeding, easy bruising Physical Exam Vital Signs: Temp Pulse Resp BP Pulse Ox 98.8 F 63 24 H 178/82 H 92 11/05/17 07:16 11/05/17 07:16 11/05/17 07:16 11/05/17 07:16 11/05/17 07:16 Intake & Output 11/04/17 11/05/17 11/06/17 06:59 06:59 06:59 Intake Total 1410 Output Total 1200 Balance 210 Weight 60.8 kg General appearance: PRESENT: no acute distress, well-developed, well-nourished Head exam: PRESENT: atraumatic, normocephalic Eye exam: PRESENT: conjunctiva pink, EOMI, PERRLA. ABSENT: scleral icterus Ear exam: PRESENT: normal external ear exam Mouth exam: PRESENT: moist, tongue midline Neck exam: ABSENT: carotid bruit, JVD, lymphadenopathy, thyromegaly Respiratory exam: PRESENT: clear to auscultation shashank, other - Emphymatous changes. ABSENT: rales, rhonchi, wheezes Cardiovascular exam: PRESENT: RRR, +S1, +S2, systolic murmur - 2/6 [place] Aortic Area. ABSENT: diastolic murmur, gallop, rubs Pulses: PRESENT: normal dorsalis pedis pul, other - R BKA Vascular exam: PRESENT: normal capillary refill GI/Abdominal exam: PRESENT: normal bowel sounds, soft. ABSENT: distended, guarding, mass, organolmegaly, rebound, tenderness Rectal exam: PRESENT: deferred Extremities exam: PRESENT: full ROM. ABSENT: calf tenderness, clubbing, pedal edema Neurological exam: PRESENT: alert, awake, oriented to person, oriented to place , oriented to time, oriented to situation, CN II-XII grossly intact. ABSENT: motor sensory deficit Psychiatric exam: PRESENT: appropriate affect, normal mood. ABSENT: homicidal ideation, suicidal ideation Skin exam: PRESENT: dry, intact, warm. ABSENT: cyanosis, rash Results EKG Comments: SR, Non specific T wave changes Impressions: Femur X-Ray 11/04/17 02:02 IMPRESSION: 1. Acute mildly displaced trochanteric fracture of the right femur. Hip/Pelvis X-Ray 11/04/17 02:02 IMPRESSION: 1. Acute mildly displaced trochanteric fracture of the right femur. Assessment & Plan - Diagnosis (1) Coronary artery disease Qualifiers: Coronary Disease-Associated Artery/Lesion type: unspecified vessel or lesion type [place] vs. transplanted heart: [place] heart Associated angina: without angina Qualified Code(s): I25.10 - Atherosclerotic heart disease of [place] coronary artery without angina pectoris Is this a current diagnosis for this admission?: Yes (2) Trochanteric fracture of right femur Qualifiers: Encounter type: initial encounter Fracture type: closed Qualified Code(s) : S72.101A - Unspecified trochanteric fracture of right femur, initial encounter for closed fracture Is this a current diagnosis for this admission?: Yes (3) Dyslipidemia Is this a current diagnosis for this admission?: Yes (4) Acquired absence of right leg below knee Is this a current diagnosis for this admission?: Yes - Notes Notes: 2D Echo shows normal LV EF, No significant stenotic or regurgitant lesions were noted. Patient currently chest pain-free. There is no CHF and patient noted to be in sinus rhythm. Patient therefore cleared for surgery. Recommend DVT prophylaxis, pulmonary toilet. Please note that patient may have significant COPD because of long-standing chronic smoking. As usual I thank Dr. Bonner very much for the kind referral. Will follow patient postop along with the primary care attending. Coronary artery disease: Symptomatically stable. Resume beta blockers and other antiplatelet therapy as soon as feasible post surgery. Dyslipidemia: Recommend high potency statin therapy. Hypertension: Blood pressure goal should be 140/90 or less. Beta-blockers, SANDOVAL inhibitor/ARB's better medications. Chronic kidney disease: Patient has mild elevation of creatinine. Recommend close follow-up of her renal functions. - Time Time Spent with patient: CODE STATUS was discussed, patient remains full code. Surrogate decision-maker unchanged. Multiple medical problems were addressed. More than 50% of the time spent coordinating care, discussing management plans with involved caregivers. Management plans discussed with involved personnels. Medical decision making was of moderate to high complexity, patient's has multiple comorbidities. Time Spent: 30 to 50 Minutes Medications reviewed and adjusted accordingly: Yes
[2017-11-05] MEDS: METOPROLOL TARTRATE 25 MG TABLET PO SCH ×2 (10:44→21:48)
[2017-11-05] MEDS ORDERED: THROMBIN (BOVINE) TOPICAL 20000 UNIT VIAL ONE (10:54)
[2017-11-05] MEDS ORDERED: THROMBIN (BOVINE) 5000 UNIT EPITAXIS KIT ONE (10:54)
[2017-11-05] MEDS ORDERED: BUPIVACAINE INJ/PF LIPOSOME/PF 266 MG/20 ML SDV ONE (10:54)
[2017-11-05] MEDS ORDERED: LABETALOL HCL INJ 20 MG/4 ML DISP.SYRIN IV ONE ×2 (11:00→20:02)
[2017-11-05] MEDS: LISINOPRIL 10 MG TABLET PO SCH (11:07)
[2017-11-05] MEDS ORDERED: CEFAZOLIN INJ 1 GM VIAL ONE (11:22)
[2017-11-05] MEDS ORDERED: TRANEXAMIC ACID INJ/PF 1,000 MG/10 ML SDV IV ONE ×2 (11:24→15:00)
[2017-11-05] MEDS ORDERED: MIDAZOLAM 2 MG/2 ML INJ ONE (11:37)
[2017-11-05] MEDS ORDERED: PROPOFOL INJ 200 MG/20 ML VIAL IV ONE (11:38)
[2017-11-05] MEDS ORDERED: EPHEDRINE SULFATE INJ 50 MG/1 ML AMPULE ONE (11:38)
[2017-11-05] MEDS ORDERED: FENTANYL CITRATE INJ/PF 100 MCG/2 ML AMPUL ONE (11:38)
[2017-11-05] MEDS ORDERED: TETRACAINE HCL/PF 20MG/2ML AMPULE (SPINAL) ONE (11:39)
--- NOTE | 2017-11-05 12:40 | Operative Report ---
Operative Report DATE OF SURGERY: 11/05/17 PREOPERATIVE DIAGNOSIS: Right femoral neck fracture OPERATION: Right proximal femoral hemiarthroplasty. Open reduction internal fixation of greater trochanteric fracture. SURGEON: AMIRAH CHAMPION ANESTHESIA: Spinal TISSUE REMOVED OR ALTERED: Femoral head to pathology ESTIMATED BLOOD LOSS: 50 PROCEDURE: With the patient in a left lateral decubitus position the right lower extremity hindquarter prepped and draped in a sterile fashion. A curvilinear incision made over the greater trochanter a posterior approach the hip was taken. As noted that there is a transverse greater trochanteric fracture. The femur was retracted anteriorly and underlying femoral neck and head are retrieved using a corkscrew. The femoral head was measured and noted to be 48 millimeters. Attention is now turned to the femur. Access is gained to the femoral canal using a box osteotome to the piriformis fossa. The femur is then prepared using a series of tapered broaches until a number 7 Nannette Accolade 2 broach is seated. A trial reduction was now performed using a 48 head and standard neck. Leg length was restored and there is excellent anterior posterior stability. A decision was made to proceed with this construct. All trial implants were removed. The final number 7 femoral stem is impacted into the canal. The standard neck is impacted onto the trunnion. Final unipolar head 48 millimeters is impacted onto the neck. The hip was reduced. The wound is copiously irrigated with pulsed lavage. The greater trochanteric fracture is fixed internally with #5 FiberWire sutures. The subsequent closed in layers using Vicryl and salomon. A sterile dressing is applied. The patient was returned to the recovery room in satisfactory condition.
[2017-11-05] MEDS ORDERED: OXYCODONE-ACETAMINOPHEN 5-325 MG TABLET PO PRN ×2 (12:49)
[2017-11-05] MEDS ORDERED: MEPERIDINE HCL/PF INJ 25 MG/1 ML DISP.SYRIN IV PRN (12:49)
[2017-11-05] MEDS ORDERED: DIPHENHYDRAMINE HCL 50 MG/ML VIAL IV PRN (12:49)
[2017-11-05] MEDS ORDERED: PROMETHAZINE HCL INJ 25 MG/1 ML VIAL IV PRN ×2 (12:49)
[2017-11-05] MEDS ORDERED: FENTANYL CITRATE INJ/PF 100 MCG/2 ML AMPUL IV PRN ×3 (12:49)
[2017-11-05] MEDS ORDERED: RINGERS SOLUTION,LACTATED 1,000 ML IV PRN (12:54)
[2017-11-05] MEDS ORDERED: ONDANSETRON 4 MG TAB.RAPDIS PO PRN (13:15)
--- NOTE | 2017-11-05 14:48 | PDOC PROGRESS REPORT ---
Subjective Progress Note for:: 11/05/17 Subjective:: Patient lying recombinant in hospital bed with right leg hip elevated on multiple pillows. Patient reports she is in much pain and that the "pain medicine is not working". She denies tingling, numbness, chest pain or shortness of breath. Reason For Visit: R HIP FRACTURE Physical Exam Vital Signs: Temp Pulse Resp BP Pulse Ox 37.0 C 52 L 16 128/57 H 97 11/05/17 12:52 11/05/17 13:22 11/05/17 13:22 11/05/17 13:22 11/05/17 13:22 Intake & Output 11/04/17 11/05/17 11/06/17 06:59 06:59 06:59 Intake Total 1410 4330 Output Total 1200 2200 Balance 210 2130 Weight 60.8 kg General appearance: PRESENT: no acute distress, well-developed, well-nourished Head exam: PRESENT: atraumatic, normocephalic Eye exam: PRESENT: EOMI Mouth exam: PRESENT: moist Respiratory exam: PRESENT: unlabored Pulses: PRESENT: normal dorsalis pedis pul, +2 pedal pulses bilateral Vascular exam: PRESENT: normal capillary refill Extremities exam: PRESENT: tenderness Additional comments: Patient lying recombinant in hospital bed with right lower extremity elevated on multiple pillows. She is tender to plapation over greater trochanter of right hip. She notes pain on initiation of motion in all dirrections including active and passive ROM. BKA stump non-tender to palpation. +2 radial pulses, less than 2 seconds capillary refill to fingers on right hand. No sensory deficits noted. Additional comments: Patient remains non-ambulatory do to nature of the injury. Patient does have a prosthetic, however uses it infrequently. Per family, she often uses a wheelchair. Neurological exam: PRESENT: alert, awake, oriented to person, oriented to place , oriented to time, oriented to situation, CN II-XII grossly intact. ABSENT: motor sensory deficit Psychiatric exam: PRESENT: appropriate affect, normal mood. ABSENT: homicidal ideation, suicidal ideation Skin exam: PRESENT: dry, intact, warm. ABSENT: cyanosis, rash Results Impressions: Femur X-Ray 11/04/17 02:02 IMPRESSION: 1. Acute mildly displaced trochanteric fracture of the right femur. Hip/Pelvis X-Ray 11/04/17 02:02 IMPRESSION: 1. Acute mildly displaced trochanteric fracture of the right femur. Assessment & Plan - Diagnosis (1) Closed basicervical fracture of right femur Qualifiers: Encounter type: initial encounter Fracture alignment: displaced Qualified Code(s): S72.041A - Displaced fracture of base of neck of right femur , initial encounter for closed fracture Is this a current diagnosis for this admission?: Yes Plan: 72-year-old white female with right displaced basicervical femoral fracture. Patient will undergo right femoral hemiarthroplasty versus open reduction internal fixation right proximal femur today with Dr. Bonner. She will follow up with [facility] 2 weeks post-operatively for re-evaluation and staple removal.
[2017-11-05] MEDS: MORPHINE SULFATE 10 MG/ML INJ IV PRN ×2 (15:56→20:14)
[2017-11-05] MEDS: OXYCODONE HCL IR 5 MG TABLET PO PRN (18:32)
[2017-11-05] MEDS ORDERED: LABETALOL HCL INJ 20 MG/4 ML DISP.SYRIN IV PRN (20:03)
--- NOTE | 2017-11-05 21:05 | PDOC PROGRESS REPORT ---
Subjective Progress Note for:: 11/05/17 Subjective:: She had surgery today,She was seen by the bedside, she continues to experience pain Reason For Visit: R HIP FRACTURE Physical Exam Vital Signs: Temp Pulse Resp BP Pulse Ox 98.3 F 71 18 188/98 H 93 11/05/17 19:00 11/05/17 19:00 11/05/17 19:00 11/05/17 19:00 11/05/17 18:01 Intake & Output 11/04/17 11/05/17 11/06/17 06:59 06:59 06:59 Intake Total 1410 6376 Output Total 1200 2930 Balance 210 3446 Weight 60.8 kg General appearance: PRESENT: no acute distress Eye exam: PRESENT: PERRLA Respiratory exam: PRESENT: clear to auscultation shashank Cardiovascular exam: PRESENT: +S1, +S2 GI/Abdominal exam: PRESENT: soft Neurological exam: PRESENT: alert Results Impressions: Femur X-Ray 11/04/17 02:02 IMPRESSION: 1. Acute mildly displaced trochanteric fracture of the right femur. Hip/Pelvis X-Ray 11/04/17 02:02 IMPRESSION: 1. Acute mildly displaced trochanteric fracture of the right femur. Assessment & Plan - Diagnosis (1) Trochanteric fracture of right femur Qualifiers: Encounter type: initial encounter Fracture type: closed Qualified Code(s) : S72.101A - Unspecified trochanteric fracture of right femur, initial encounter for closed fracture Is this a current diagnosis for this admission?: Yes (2) Coronary artery disease Qualifiers: Coronary Disease-Associated Artery/Lesion type: unspecified vessel or lesion type [place] vs. transplanted heart: [place] heart Associated angina: without angina Qualified Code(s): I25.10 - Atherosclerotic heart disease of [place] coronary artery without angina pectoris Is this a current diagnosis for this admission?: Yes - Plan Summary Plan Summary: Continue treatment
[2017-11-05] MEDS: ATORVASTATIN CALCIUM 10 MG TABLET PO SCH (21:49)
[2017-11-06] MEDS ORDERED: VANCOMYCIN HCL INJ 1000 MG VIAL IV ONE
[2017-11-06] MEDS ORDERED: VANCOMYCIN HCL 1,000 MG in DEXTROSE 5%-WATER 250 ML IV ONE (00:01)
[2017-11-06] MEDS: DIPHENHYDRAMINE HCL 25 MG CAPSULE PO PRN ×2 (01:00→23:13)
[2017-11-06] MEDS: HYDROMORPHONE HCL INJ/PF 2 MG/ML AMPULE IV PRN (03:11)
[2017-11-06 06:29] LABS: HEMATOCRIT 33.1 % (36.0-47.0); HEMOGLOBIN 10.8 g/dL (12.0-15.5); MEAN CORPUSCULAR HEMOGLOBIN 30.3 pg (27.0-33.4); MEAN CORPUSCULAR HGB CONC 32.6 g/dL (32.0-36.0); MEAN CORPUSCULAR VOLUME 93 fl (80-97); PLATELET COUNT 103 10^3/uL (150-450); RED BLOOD COUNT 3.56 10^6/uL (3.72-5.28); RED CELL DISTRIBUTION WIDTH 15.4 % (11.5-14.0); WHITE BLOOD COUNT 12.4 10^3/uL (4.0-10.5)
[2017-11-06] MEDS ORDERED: IBUPROFEN 800 MG in NORMAL SALINE 250 ML IV SCH (06:45)
[2017-11-06 06:46] LABS: ANION GAP 11 (5-19); BLOOD UREA NITROGEN 13 mg/dL (7-20); CALCIUM 9.1 mg/dL (8.4-10.2); CARBON DIOXIDE 25 mmol/L (22-30); CHLORIDE 103 mmol/L (98-107); GLUCOSE 145 mg/dL (75-110); POTASSIUM 3.9 mmol/L (3.6-5.0); SODIUM 138.7 mmol/L (137-145)
--- NOTE | 2017-11-06 07:03 | PDOC PROGRESS REPORT ---
Subjective Progress Note for:: 11/06/17 Reason For Visit: R HIP FRACTURE 72-year-old nonambulatory white female with a right femoral neck fracture admitted through the emergency room for fracture management Physical Exam Vital Signs: Temp Pulse Resp BP Pulse Ox 36.4 C 68 19 173/76 H 95 11/06/17 00:00 11/06/17 02:00 11/06/17 00:00 11/06/17 00:00 11/06/17 00:00 Intake & Output 11/05/17 11/06/17 11/07/17 06:59 06:59 06:59 Intake Total 1410 6376 Output Total 1200 2930 Balance 210 3446 General appearance: PRESENT: mild distress Head exam: PRESENT: normocephalic Respiratory exam: PRESENT: unlabored Cardiovascular exam: PRESENT: RRR Pulses: PRESENT: other - Right below-knee stump GI/Abdominal exam: PRESENT: soft Rectal exam: PRESENT: deferred Extremities exam: PRESENT: other - Right hip dressing clean dry and intact Neurological exam: PRESENT: alert, altered, other - Confused Psychiatric exam: PRESENT: agitated Skin exam: PRESENT: dry, intact, warm. ABSENT: cyanosis, rash Results Laboratory Results: 11/06/17 06:03 11/06/17 06:03 11/06/17 11/06/17 06:03 06:03 WBC 12.4 H RBC 3.56 L Hgb 10.8 L Hct 33.1 L MCV 93 MCH 30.3 MCHC 32.6 RDW 15.4 H Plt Count 103 L Sodium 138.7 Potassium 3.9 Chloride 103 Carbon Dioxide 25 Anion Gap 11 BUN 13 Creatinine 0.86 Est GFR ( Amer) > 60 Est GFR (Non-Af Amer) > 60 Glucose 145 H Calcium 9.1 Impressions: Femur X-Ray 11/04/17 02:02 IMPRESSION: 1. Acute mildly displaced trochanteric fracture of the right femur. Hip/Pelvis X-Ray 11/04/17 02:02 IMPRESSION: 1. Acute mildly displaced trochanteric fracture of the right femur. Status: Imported from PACS Assessment & Plan - Diagnosis (1) Trochanteric fracture of right femur Qualifiers: Encounter type: initial encounter Fracture type: closed Qualified Code(s) : S72.101A - Unspecified trochanteric fracture of right femur, initial encounter for closed fracture Is this a current diagnosis for this admission?: Yes Plan: Patient postop day 1 right proximal femoral hemiarthroplasty for displaced femoral neck fracture. Patient was nonambulatory preoperatively. She was transported primarily in a wheelchair. Physical therapy is requested for facilitating transfers. Patient has not received physical therapy, a pelvic x- ray, or labs that were ordered and postop orders and these have been reordered this morning. - Time Time Spent with patient: 15-24 minutes Anticipated discharge: SNF Within: Other
[2017-11-06] MEDS: MORPHINE SULFATE 10 MG/ML INJ IV PRN (08:13)
--- NOTE | 2017-11-06 09:14 | EKG REPORT ---
SEVERITY:- ABNORMAL ECG - SINUS RHYTHM BORDERLINE LEFT AXIS DEVIATION NONSPECIFIC T ABNORMALITIES, INFERIOR LEADS : Confirmed by: Michael Johnston 06-Nov-2017 09:14:33
[2017-11-06] MEDS: LISINOPRIL 10 MG TABLET PO SCH (09:21)
[2017-11-06] MEDS: METOPROLOL TARTRATE 25 MG TABLET PO SCH ×2 (09:21→23:13)
[2017-11-06] MEDS: OXYCODONE HCL IR 5 MG TABLET PO PRN ×2 (09:25→18:54)
[2017-11-06] MEDS: IBUPROFEN 800 MG in NORMAL SALINE 250 ML IV SCH ×2 (09:59→17:45)
--- NOTE | 2017-11-06 11:09 | PDOC PROGRESS REPORT ---
Subjective Progress Note for:: 11/06/17 Subjective:: Patient is status post surgery day 1. Patient is noted to be somewhat confused. Pt is denying any chest arm or neck discomfort. Patient denying any PND, orthopnea. Patient denied any sustained palpitations, dizziness, syncope, near syncope. Patient denying any fever chills. Patient denying any other significant discomfort. Patient is maintaining sinus rhythm. Review of systems: Rest review of systems negative. Medications: Medications have been reviewed. Reason For Visit: R HIP FRACTURE Physical Exam Vital Signs: Temp Pulse Resp BP Pulse Ox 98.2 F 71 13 168/83 H 97 11/06/17 03:27 11/06/17 03:27 11/06/17 03:27 11/06/17 03:27 11/06/17 03:27 Intake & Output 11/05/17 11/06/17 11/07/17 06:59 06:59 06:59 Intake Total 1410 6496 Output Total 1200 3530 Balance 210 2966 Exam: GENERAL: well-nourished and in no acute distress. Patient is alert but not oriented to place time or person. HEAD: Atraumatic, normocephalic. EYES: Pupils equal round and reactive to light, extraocular movements intact, sclera anicteric, conjunctiva are normal. ENT: TMs normal, nares patent, oropharynx clear without exudates. Moist mucous membranes. No oral ulcerations or bleeding gums noted NECK: supple without lymphadenopathy or JVD. Trachea is central. No cervical or axillary lymphadenopathy noted. Carotids are 2+ LUNGS: Breath sounds few a scattered wheezing noted. No significant dullness noted. CHEST: Palpation of chest wall shows no significant chest wall tenderness. 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 ABDOMEN: Soft, no significant tenderness appreciated, normoactive bowel sounds. No guarding, no rebound. No rigidity noted . No masses appreciated. EXTREMITIES: Pedal pulses are 1-2+, no calf tenderness noted, Trace + pedal edema noted. No clubbing or cyanosis. NEUROLOGICAL: Patient is alert and is noted to move all 4 extremities equally well. PSYCH: Patient cannot participate in a neurologic and psych exam because of the patient's current mental status SKIN: No significant ecchymosis, rash, ulcerations or signs of pruritus noted. MUSCULOSKELETAL EXAM: No significant joint swelling noted. Status post right hip surgery. Status post BKA right leg. Postsurgical changes noted in the right hip. Results Laboratory Results: 11/06/17 06:03 11/06/17 06:03 11/06/17 11/06/17 06:03 06:03 WBC 12.4 H RBC 3.56 L Hgb 10.8 L Hct 33.1 L MCV 93 MCH 30.3 MCHC 32.6 RDW 15.4 H Plt Count 103 L Sodium 138.7 Potassium 3.9 Chloride 103 Carbon Dioxide 25 Anion Gap 11 BUN 13 Creatinine 0.86 Est GFR ( Amer) > 60 Est GFR (Non-Af Amer) > 60 Glucose 145 H Calcium 9.1 EKG Comments: Twelve-lead EKG obtained this morning shows no significant changes from baseline. Impressions: Femur X-Ray 11/04/17 02:02 IMPRESSION: 1. Acute mildly displaced trochanteric fracture of the right femur. Hip/Pelvis X-Ray 11/04/17 02:02 IMPRESSION: 1. Acute mildly displaced trochanteric fracture of the right femur. Assessment & Plan - Diagnosis (1) Coronary artery disease Qualifiers: Coronary Disease-Associated Artery/Lesion type: unspecified vessel or lesion type [place] vs. transplanted heart: [place] heart Associated angina: without angina Qualified Code(s): I25.10 - Atherosclerotic heart disease of [place] coronary artery without angina pectoris Is this a current diagnosis for this admission?: Yes (2) Trochanteric fracture of right femur Qualifiers: Encounter type: initial encounter Fracture type: closed Qualified Code(s) : S72.101A - Unspecified trochanteric fracture of right femur, initial encounter for closed fracture Is this a current diagnosis for this admission?: Yes (3) Dyslipidemia Is this a current diagnosis for this admission?: Yes (4) Acquired absence of right leg below knee Is this a current diagnosis for this admission?: Yes (5) COPD (chronic obstructive pulmonary disease) Qualifiers: COPD type: unspecified COPD Qualified Code(s): J44.9 - Chronic obstructive pulmonary disease, unspecified Is this a current diagnosis for this admission?: Yes (6) CKD (chronic kidney disease) Qualifiers: Chronic kidney disease stage: stage 2 (mild) Qualified Code(s): N18.2 - Chronic kidney disease, stage 2 (mild) Is this a current diagnosis for this admission?: Yes (7) Tobacco abuse Is this a current diagnosis for this admission?: Yes - Notes Notes: Patient is status post right hip surgery. She seems to have tolerated this well. Patient however have multiple underlying significant comorbid diagnosis. Currently she is confused. Nurse tells me it is because of pain medications. As regards coronary artery disease, patient seems to be stable without any EKG changes. Currently not complaining of chest pain. Will follow one more day because of significant underlying comorbid diagnosis. - Time Time with patient: 15-25 minutes - CODE STATUS was discussed, patient remains full code. Surrogate decision-maker unchanged. Multiple medical problems were addressed. More than 50% of the time spent coordinating care, discussing management plans with involved caregivers. Management plans discussed with involved personnels. Medical decision making was of moderate to high complexity , patient's has multiple comorbidities. Medications reviewed and adjusted accordingly: Yes
--- NOTE | 2017-11-06 17:14 | RADIOLOGY REPORT (SQ) ---
EXAM DESCRIPTION: PELVIS AP COMPLETED DATE/TIME: 11/06/2017 5:01 pm REASON FOR STUDY: post op COMPARISON: None. NUMBER OF VIEWS: One view TECHNIQUE: Digital radiographic images of the pelvis post-procedure LIMITATIONS: None. FINDINGS: BONES: No worrisome or unexpected findings post-procedure. DEVICE: Patient is status post right total hip replacement. The prosthesis appears well seated in th e acetabulum and proximal femoral medullary canal. SOFT TISSUES: No worrisome findings. Expected postoperative soft tissue changes. IMPRESSION: SATISFACTORY POSTOPERATIVE PELVIS. TECHNICAL DOCUMENTATION: JOB ID: [id number] [employer]- All Rights Reserved Reading location - IP/workstation name: [email or web address]
--- NOTE | 2017-11-06 22:37 | PDOC PROGRESS REPORT ---
Subjective Progress Note for:: 11/06/17 Subjective:: She was by the bedside, she is status post ORIF of the right hip joint Reason For Visit: R HIP FRACTURE Physical Exam Vital Signs: Temp Pulse Resp BP Pulse Ox 98.4 F 71 17 144/73 H 95 11/06/17 19:57 11/06/17 19:57 11/06/17 19:57 11/06/17 19:57 11/06/17 19:57 Intake & Output 11/05/17 11/06/17 11/07/17 06:59 06:59 06:59 Intake Total 1410 6496 800 Output Total 1200 3530 1100 Balance 210 2966 -300 General appearance: PRESENT: no acute distress Eye exam: PRESENT: PERRLA Respiratory exam: PRESENT: clear to auscultation shashank Cardiovascular exam: PRESENT: +S1, +S2 GI/Abdominal exam: PRESENT: soft Neurological exam: PRESENT: alert Results Laboratory Results: 11/06/17 06:03 11/06/17 06:03 11/06/17 11/06/17 06:03 06:03 WBC 12.4 H RBC 3.56 L Hgb 10.8 L Hct 33.1 L MCV 93 MCH 30.3 MCHC 32.6 RDW 15.4 H Plt Count 103 L Sodium 138.7 Potassium 3.9 Chloride 103 Carbon Dioxide 25 Anion Gap 11 BUN 13 Creatinine 0.86 Est GFR ( Amer) > 60 Est GFR (Non-Af Amer) > 60 Glucose 145 H Calcium 9.1 Impressions: Femur X-Ray 11/04/17 02:02 IMPRESSION: 1. Acute mildly displaced trochanteric fracture of the right femur. Hip/Pelvis X-Ray 11/04/17 02:02 IMPRESSION: 1. Acute mildly displaced trochanteric fracture of the right femur. Pelvis X-Ray 11/06/17 00:00 IMPRESSION: SATISFACTORY POSTOPERATIVE PELVIS. Assessment & Plan - Diagnosis (1) Trochanteric fracture of right femur Qualifiers: Encounter type: initial encounter Fracture type: closed Qualified Code(s) : S72.101A - Unspecified trochanteric fracture of right femur, initial encounter for closed fracture Is this a current diagnosis for this admission?: Yes Plan: Patient is medically stable for surgery. She just underwent coronary artery bypass grafting, August 2017 (2) Coronary artery disease Qualifiers: Coronary Disease-Associated Artery/Lesion type: unspecified vessel or lesion type [place] vs. transplanted heart: [place] heart Associated angina: without angina Qualified Code(s): I25.10 - Atherosclerotic heart disease of [place] coronary artery without angina pectoris Is this a current diagnosis for this admission?: Yes
[2017-11-06] MEDS: ATORVASTATIN CALCIUM 10 MG TABLET PO SCH (23:13)
[2017-11-07] MEDS: IBUPROFEN 800 MG in NORMAL SALINE 250 ML IV SCH ×3 (02:52→18:00)
[2017-11-07] MEDS: OXYCODONE HCL IR 5 MG TABLET PO PRN ×3 (04:56→18:47)
[2017-11-07] MEDS: METOPROLOL TARTRATE 25 MG TABLET PO SCH ×2 (09:42→21:29)
[2017-11-07] MEDS: LISINOPRIL 10 MG TABLET PO SCH (09:43)
[2017-11-07] MEDS: ATORVASTATIN CALCIUM 10 MG TABLET PO SCH (21:29)
--- NOTE | 2017-11-07 22:57 | PDOC PROGRESS REPORT ---
Subjective Progress Note for:: 11/07/17 Subjective:: She was by the bedside, she is status post ORIF of the right hip joint Reason For Visit: R HIP FRACTURE Physical Exam Vital Signs: Temp Pulse Resp BP Pulse Ox 99.0 F 68 18 168/69 H 99 11/07/17 19:55 11/07/17 19:55 11/07/17 19:55 11/07/17 19:55 11/07/17 19:55 Intake & Output 11/06/17 11/07/17 11/08/17 06:59 06:59 06:59 Intake Total 6496 1500 440 Output Total 3530 1825 400 Balance 2966 -325 40 General appearance: PRESENT: no acute distress Eye exam: PRESENT: PERRLA Respiratory exam: PRESENT: clear to auscultation shashank Cardiovascular exam: PRESENT: +S1, +S2 Neurological exam: PRESENT: alert Results Laboratory Results: 11/06/17 06:03 11/06/17 06:03 Impressions: Femur X-Ray 11/04/17 02:02 IMPRESSION: 1. Acute mildly displaced trochanteric fracture of the right femur. Hip/Pelvis X-Ray 11/04/17 02:02 IMPRESSION: 1. Acute mildly displaced trochanteric fracture of the right femur. Pelvis X-Ray 11/06/17 00:00 IMPRESSION: SATISFACTORY POSTOPERATIVE PELVIS. Assessment & Plan - Diagnosis (1) Trochanteric fracture of right femur Qualifiers: Encounter type: initial encounter Fracture type: closed Qualified Code(s) : S72.101A - Unspecified trochanteric fracture of right femur, initial encounter for closed fracture Is this a current diagnosis for this admission?: Yes (2) Coronary artery disease Qualifiers: Coronary Disease-Associated Artery/Lesion type: unspecified vessel or lesion type [place] vs. transplanted heart: [place] heart Associated angina: without angina Qualified Code(s): I25.10 - Atherosclerotic heart disease of [place] coronary artery without angina pectoris Is this a current diagnosis for this admission?: Yes
[2017-11-08] MEDS: IBUPROFEN 800 MG in NORMAL SALINE 250 ML IV SCH (01:24)
[2017-11-08] MEDS: OXYCODONE HCL IR 5 MG TABLET PO PRN ×4 (03:41→21:04)
[2017-11-08] MEDS ORDERED: LISINOPRIL 10 MG TABLET PO ONE (07:30)
[2017-11-08] MEDS ORDERED: METOPROLOL TARTRATE 25 MG TABLET PO ONE (07:30)
--- NOTE | 2017-11-08 08:08 | PDOC PROGRESS REPORT ---
Subjective Reason For Visit: R HIP FRACTURE 72-year-old white female postop day 3 from right proximal femoral hemiarthroplasty secondary to femoral neck fracture. Physical Exam Vital Signs: Temp Pulse Resp BP Pulse Ox 36.7 C 62 18 175/86 H 95 11/08/17 03:45 11/08/17 05:01 11/08/17 03:45 11/08/17 05:01 11/07/17 23:19 Intake & Output 11/07/17 11/08/17 11/09/17 06:59 06:59 06:59 Intake Total 1500 440 Output Total 1825 400 Balance -325 40 General appearance: PRESENT: no acute distress Head exam: PRESENT: normocephalic Respiratory exam: PRESENT: unlabored Cardiovascular exam: PRESENT: rubs Extremities exam: PRESENT: other - Leg lengths are equal. Distal neurovascular examination is intact. Hip dressing clean dry and intact. Results Laboratory Results: 11/06/17 06:03 11/06/17 06:03 Impressions: Femur X-Ray 11/04/17 02:02 IMPRESSION: 1. Acute mildly displaced trochanteric fracture of the right femur. Hip/Pelvis X-Ray 11/04/17 02:02 IMPRESSION: 1. Acute mildly displaced trochanteric fracture of the right femur. Pelvis X-Ray 11/06/17 00:00 IMPRESSION: SATISFACTORY POSTOPERATIVE PELVIS. Status: Imported from PACS Assessment & Plan - Diagnosis (1) Trochanteric fracture of right femur Qualifiers: Encounter type: initial encounter Fracture type: closed Qualified Code(s) : S72.101A - Unspecified trochanteric fracture of right femur, initial encounter for closed fracture Is this a current diagnosis for this admission?: Yes Plan: Patient working with physical therapy and awaiting care home facility placement
[2017-11-08] MEDS: ASPIRIN 81 MG TABLET, ENT COATED PO SCH (09:32)
[2017-11-08] MEDS: CLOPIDOGREL BISULFATE 75 MG TABLET PO SCH (09:32)
[2017-11-08] MEDS: METOPROLOL TARTRATE 25 MG TABLET PO SCH ×2 (09:33→21:04)
[2017-11-08] MEDS: LISINOPRIL 10 MG TABLET PO SCH ×3 (09:33→21:04)
--- NOTE | 2017-11-08 11:29 | PDOC PROGRESS REPORT ---
Subjective Progress Note for:: 11/08/17 Subjective:: Patient was admitting because of the left hip fracture status post ORIF Blood pressure was running high Patient's denied any chest pain denied any shortness of the breath Reason For Visit: R HIP FRACTURE Physical Exam Vital Signs: Temp Pulse Resp BP Pulse Ox 97.7 F 71 18 186/79 H 96 11/08/17 08:06 11/08/17 08:06 11/08/17 08:06 11/08/17 08:06 11/08/17 08:06 Intake & Output 11/07/17 11/08/17 11/09/17 06:59 06:59 06:59 Intake Total 1500 440 Output Total 1825 400 Balance -325 40 General appearance: PRESENT: no acute distress, well-developed, well-nourished Head exam: PRESENT: atraumatic, normocephalic Eye exam: PRESENT: conjunctiva pink, EOMI, PERRLA. ABSENT: scleral icterus Ear exam: PRESENT: normal external ear exam Mouth exam: PRESENT: moist, tongue midline Neck exam: PRESENT: full ROM. ABSENT: carotid bruit, JVD, lymphadenopathy, thyromegaly Respiratory exam: PRESENT: clear to auscultation shashank Cardiovascular exam: PRESENT: RRR. ABSENT: diastolic murmur, rubs, systolic murmur Pulses: PRESENT: normal dorsalis pedis pul, +2 pedal pulses bilateral Vascular exam: PRESENT: normal capillary refill GI/Abdominal exam: PRESENT: normal bowel sounds, soft. ABSENT: distended, guarding, mass, organolmegaly, rebound, tenderness Rectal exam: PRESENT: deferred Extremities exam: ABSENT: pedal edema Musculoskeletal exam: PRESENT: ambulatory Neurological exam: PRESENT: alert, awake, oriented to person, oriented to place , oriented to time, oriented to situation, CN II-XII grossly intact. ABSENT: motor sensory deficit Psychiatric exam: PRESENT: appropriate affect, normal mood. ABSENT: homicidal ideation, suicidal ideation Skin exam: PRESENT: dry, intact, warm. ABSENT: cyanosis, rash Results Laboratory Results: 11/06/17 06:03 11/06/17 06:03 Impressions: Femur X-Ray 11/04/17 02:02 IMPRESSION: 1. Acute mildly displaced trochanteric fracture of the right femur. Hip/Pelvis X-Ray 11/04/17 02:02 IMPRESSION: 1. Acute mildly displaced trochanteric fracture of the right femur. Pelvis X-Ray 11/06/17 00:00 IMPRESSION: SATISFACTORY POSTOPERATIVE PELVIS. Assessment & Plan - Diagnosis (1) Hypertension Qualifiers: Hypertension type: essential hypertension Qualified Code(s): I10 - Essential (primary) hypertension Is this a current diagnosis for this admission?: Yes Plan: Increase the lisinopril 20 mg p.o. twice a day (2) COPD (chronic obstructive pulmonary disease) Qualifiers: COPD type: unspecified COPD Qualified Code(s): J44.9 - Chronic obstructive pulmonary disease, unspecified Is this a current diagnosis for this admission?: Yes (3) Coronary artery disease Qualifiers: Coronary Disease-Associated Artery/Lesion type: unspecified vessel or lesion type [place] vs. transplanted heart: [place] heart Associated angina: without angina Qualified Code(s): I25.10 - Atherosclerotic heart disease of [place] coronary artery without angina pectoris Is this a current diagnosis for this admission?: Yes (4) Trochanteric fracture of right femur Qualifiers: Encounter type: initial encounter Fracture type: closed Qualified Code(s) : S72.101A - Unspecified trochanteric fracture of right femur, initial encounter for closed fracture Is this a current diagnosis for this admission?: Yes - Time Time Spent with patient: 15-24 minutes Medications reviewed and adjusted accordingly: Yes Anticipated discharge: Other Within: Other - Inpatient Certification Medical Necessity: Need Close Monitoring Due to Risk of Patient Decompensation Post Hospital Care: D/C Education Technician Documentation - Plan Summary Plan Summary: stable
[2017-11-08] MEDS: ATORVASTATIN CALCIUM 10 MG TABLET PO SCH (21:03)
[2017-11-09] MEDS: OXYCODONE HCL IR 5 MG TABLET PO PRN ×4 (03:12→20:31)
[2017-11-09 06:58] LABS: ABSOLUTE BASOPHILS # (AUTO) 0.1 10^3/uL (0.0-0.2); ABSOLUTE EOSINOPHILS # (AUTO) 0.6 10^3/uL (0.0-0.6); ABSOLUTE LYMPHOCYTES (AUTO) 1.9 10^3/uL (0.5-4.7); ABSOLUTE NEUT (AUTO) 5.8 10^3/uL (1.7-8.2); BASOPHILS % (AUTO) 1.2 % (0-2); EOSINOPHILS % (AUTO) 6.4 % (0-6); HEMATOCRIT 30.8 % (36.0-47.0); HEMOGLOBIN 10.3 g/dL (12.0-15.5); LYMPHOCYTES % (AUTO) 20.5 % (13-45); MEAN CORPUSCULAR HEMOGLOBIN 30.5 pg (27.0-33.4); MEAN CORPUSCULAR HGB CONC 33.4 g/dL (32.0-36.0); MEAN CORPUSCULAR VOLUME 91 fl (80-97); MONOCYTES % (AUTO) 10.7 % (3-13); PLATELET COUNT 209 10^3/uL (150-450); RED BLOOD COUNT 3.37 10^6/uL (3.72-5.28); RED CELL DISTRIBUTION WIDTH 15.5 % (11.5-14.0); SEGMENTED NEUTROPHILS % (AUTO) 61.2 % (42-78); TOTAL CELLS COUNTED % (AUTO) 100 %; WHITE BLOOD COUNT 9.5 10^3/uL (4.0-10.5)
--- NOTE | 2017-11-09 06:58 | PDOC PROGRESS REPORT ---
Subjective Progress Note for:: 11/09/17 Reason For Visit: R HIP FRACTURE 72-year-old white female postop day 4 from right proximal femoral hemiarthroplasty. Physical Exam Vital Signs: Temp Pulse Resp BP Pulse Ox 36.8 C 67 15 124/80 95 11/09/17 03:37 11/09/17 03:37 11/09/17 03:37 11/09/17 03:37 11/09/17 03:37 Intake & Output 11/07/17 11/08/17 11/09/17 06:59 06:59 06:59 Intake Total 1500 440 418 Output Total 1825 400 800 Balance -325 40 -382 Weight 62.8 kg General appearance: PRESENT: no acute distress Respiratory exam: PRESENT: unlabored Cardiovascular exam: PRESENT: RRR Extremities exam: PRESENT: other - Right hip dressing clean dry and intact. Right BKA stump is healthy. Results Impressions: Femur X-Ray 11/04/17 02:02 IMPRESSION: 1. Acute mildly displaced trochanteric fracture of the right femur. Hip/Pelvis X-Ray 11/04/17 02:02 IMPRESSION: 1. Acute mildly displaced trochanteric fracture of the right femur. Pelvis X-Ray 11/06/17 00:00 IMPRESSION: SATISFACTORY POSTOPERATIVE PELVIS. Status: Imported from PACS Assessment & Plan - Diagnosis (1) Trochanteric fracture of right femur Qualifiers: Encounter type: initial encounter Fracture type: closed Qualified Code(s) : S72.101A - Unspecified trochanteric fracture of right femur, initial encounter for closed fracture Is this a current diagnosis for this admission?: Yes Plan: Patient status post hemiarthroplasty. Patient was nonambulatory preop. She is being mobilized to a chair with physical therapy. She is waiting for [facility] facility placement.
[2017-11-09 07:24] LABS: ANION GAP 9 (5-19); BLOOD UREA NITROGEN 16 mg/dL (7-20); CALCIUM 8.6 mg/dL (8.4-10.2); CARBON DIOXIDE 26 mmol/L (22-30); CHLORIDE 106 mmol/L (98-107); GLUCOSE 107 mg/dL (75-110); POTASSIUM 3.3 mmol/L (3.6-5.0); SODIUM 140.7 mmol/L (137-145)
[2017-11-09] MEDS: LISINOPRIL 10 MG TABLET PO SCH ×2 (09:06→21:26)
[2017-11-09] MEDS: METOPROLOL TARTRATE 25 MG TABLET PO SCH ×2 (09:07→21:26)
[2017-11-09] MEDS: CLOPIDOGREL BISULFATE 75 MG TABLET PO SCH (09:07)
[2017-11-09] MEDS: ASPIRIN 81 MG TABLET, ENT COATED PO SCH (09:07)
--- NOTE | 2017-11-09 10:43 | PDOC PROGRESS REPORT ---
Subjective Progress Note for:: 11/09/17 Subjective:: Patient is currently doing well except patient's complaining some hip pain Patient is also getting improved blood pressure Reason For Visit: R HIP FRACTURE Physical Exam Vital Signs: Temp Pulse Resp BP Pulse Ox 97.6 F 64 20 152/84 H 100 11/09/17 07:36 11/09/17 07:36 11/09/17 07:36 11/09/17 07:36 11/09/17 07:36 Intake & Output 11/08/17 11/09/17 11/10/17 06:59 06:59 06:59 Intake Total 440 418 Output Total 400 800 Balance 40 -382 Weight 62.8 kg General appearance: PRESENT: no acute distress, well-developed, well-nourished Head exam: PRESENT: atraumatic, normocephalic Eye exam: PRESENT: conjunctiva pink, EOMI, PERRLA. ABSENT: scleral icterus Ear exam: PRESENT: normal external ear exam Mouth exam: PRESENT: moist, tongue midline Neck exam: PRESENT: full ROM. ABSENT: carotid bruit, JVD, lymphadenopathy, thyromegaly Respiratory exam: PRESENT: clear to auscultation shashank Cardiovascular exam: PRESENT: RRR. ABSENT: diastolic murmur, rubs, systolic murmur Pulses: PRESENT: normal dorsalis pedis pul, +2 pedal pulses bilateral Vascular exam: PRESENT: normal capillary refill GI/Abdominal exam: PRESENT: normal bowel sounds, soft. ABSENT: distended, guarding, mass, organolmegaly, rebound, tenderness Rectal exam: PRESENT: deferred Extremities exam: ABSENT: pedal edema Neurological exam: PRESENT: alert, awake, oriented to person, oriented to place , oriented to time, oriented to situation, CN II-XII grossly intact. ABSENT: motor sensory deficit Psychiatric exam: PRESENT: appropriate affect, normal mood. ABSENT: homicidal ideation, suicidal ideation Skin exam: PRESENT: dry, intact, warm. ABSENT: cyanosis, rash Results Laboratory Results: 11/09/17 06:47 11/09/17 06:47 11/09/17 11/09/17 06:47 06:47 WBC 9.5 RBC 3.37 L Hgb 10.3 L Hct 30.8 L MCV 91 MCH 30.5 MCHC 33.4 RDW 15.5 H Plt Count 209 Seg Neutrophils % 61.2 Lymphocytes % 20.5 Monocytes % 10.7 Eosinophils % 6.4 H Basophils % 1.2 Absolute Neutrophils 5.8 Absolute Lymphocytes 1.9 Absolute Monocytes 1.0 Absolute Eosinophils 0.6 Absolute Basophils 0.1 Sodium 140.7 Potassium 3.3 L Chloride 106 Carbon Dioxide 26 Anion Gap 9 BUN 16 Creatinine 0.79 Est GFR ( Amer) > 60 Est GFR (Non-Af Amer) > 60 Glucose 107 Calcium 8.6 Impressions: Femur X-Ray 11/04/17 02:02 IMPRESSION: 1. Acute mildly displaced trochanteric fracture of the right femur. Hip/Pelvis X-Ray 11/04/17 02:02 IMPRESSION: 1. Acute mildly displaced trochanteric fracture of the right femur. Pelvis X-Ray 11/06/17 00:00 IMPRESSION: SATISFACTORY POSTOPERATIVE PELVIS. Assessment & Plan - Diagnosis (1) Hypertension Qualifiers: Hypertension type: essential hypertension Qualified Code(s): I10 - Essential (primary) hypertension Is this a current diagnosis for this admission?: Yes Plan: Increase the lisinopril 20 mg p.o. twice a day (2) COPD (chronic obstructive pulmonary disease) Qualifiers: COPD type: unspecified COPD Qualified Code(s): J44.9 - Chronic obstructive pulmonary disease, unspecified Is this a current diagnosis for this admission?: Yes (3) Coronary artery disease Qualifiers: Coronary Disease-Associated Artery/Lesion type: unspecified vessel or lesion type [place] vs. transplanted heart: [place] heart Associated angina: without angina Qualified Code(s): I25.10 - Atherosclerotic heart disease of [place] coronary artery without angina pectoris Is this a current diagnosis for this admission?: Yes (4) Trochanteric fracture of right femur Qualifiers: Encounter type: initial encounter Fracture type: closed Qualified Code(s) : S72.101A - Unspecified trochanteric fracture of right femur, initial encounter for closed fracture Is this a current diagnosis for this admission?: Yes - Time Time Spent with patient: 15-24 minutes Medications reviewed and adjusted accordingly: Yes Anticipated discharge: Home Within: Other - Inpatient Certification Medical Necessity: Need Close Monitoring Due to Risk of Patient Decompensation Post Hospital Care: D/C Network Operations Specialist Documentation - Plan Summary Plan Summary: stable
[2017-11-09] MEDS ORDERED: POTASSIUM CHLORIDE 10 MEQ TABLET.SA PO ONE (11:00)
--- NOTE | 2017-11-09 12:43 | PDOC PROGRESS REPORT ---
Subjective Progress Note for:: 11/07/17 Subjective:: Patient was seen on morning rounds on the of this month but for some reason note got missed. Patient was seen because of significant comorbid problems. Patient is status post surgery day 2. Patient is noted to be somewhat confused. Pt is denying any chest arm or neck discomfort. Patient denying any PND, orthopnea. Patient denied any sustained palpitations, dizziness, syncope, near syncope. Patient denying any fever chills. Patient denying any other significant discomfort. Patient is maintaining sinus rhythm. Review of systems: Rest review of systems negative. Medications: Medications have been reviewed. Reason For Visit: R HIP FRACTURE Physical Exam Vital Signs: Temp Pulse Resp BP Pulse Ox 97.6 F 64 20 152/84 H 100 11/09/17 07:36 11/09/17 07:36 11/09/17 07:36 11/09/17 07:36 11/09/17 07:36 Intake & Output 11/08/17 11/09/17 11/10/17 06:59 06:59 06:59 Intake Total 440 418 Output Total 400 800 Balance 40 -382 Weight 62.8 kg Exam: GENERAL: well-nourished and in no acute distress. Patient is more alert as compared to yesterday.. HEAD: Atraumatic, normocephalic. EYES: Pupils equal round and reactive to light, extraocular movements intact, sclera anicteric, conjunctiva are normal. ENT: TMs normal, nares patent, oropharynx clear without exudates. Moist mucous membranes. No oral ulcerations or bleeding gums noted NECK: supple without lymphadenopathy or JVD. Trachea is central. No cervical or axillary lymphadenopathy noted. Carotids are 2+ LUNGS: Breath sounds few a scattered wheezing noted. No significant dullness noted. CHEST: Palpation of chest wall shows no significant chest wall tenderness. 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 ABDOMEN: Soft, no significant tenderness appreciated, normoactive bowel sounds. No guarding, no rebound. No rigidity noted . No masses appreciated. EXTREMITIES: Pedal pulses are 1-2+, no calf tenderness noted, Trace + pedal edema noted. No clubbing or cyanosis. NEUROLOGICAL: Patient is alert and is noted to move all 4 extremities equally well. PSYCH: This was not examined but patient seems to be in normal mood. Judgment not examined. SKIN: No significant ecchymosis, rash, ulcerations or signs of pruritus noted. MUSCULOSKELETAL EXAM: No significant joint swelling noted. Status post right hip surgery. Status post BKA right leg. Postsurgical changes noted in the right hip. Results Laboratory Results: 11/09/17 06:47 11/09/17 06:47 11/09/17 11/09/17 06:47 06:47 WBC 9.5 RBC 3.37 L Hgb 10.3 L Hct 30.8 L MCV 91 MCH 30.5 MCHC 33.4 RDW 15.5 H Plt Count 209 Seg Neutrophils % 61.2 Lymphocytes % 20.5 Monocytes % 10.7 Eosinophils % 6.4 H Basophils % 1.2 Absolute Neutrophils 5.8 Absolute Lymphocytes 1.9 Absolute Monocytes 1.0 Absolute Eosinophils 0.6 Absolute Basophils 0.1 Sodium 140.7 Potassium 3.3 L Chloride 106 Carbon Dioxide 26 Anion Gap 9 BUN 16 Creatinine 0.79 Est GFR ( Amer) > 60 Est GFR (Non-Af Amer) > 60 Glucose 107 Calcium 8.6 EKG Comments: No significant cardiac dysrhythmia noted on the monitor. Impressions: Femur X-Ray 11/04/17 02:02 IMPRESSION: 1. Acute mildly displaced trochanteric fracture of the right femur. Hip/Pelvis X-Ray 11/04/17 02:02 IMPRESSION: 1. Acute mildly displaced trochanteric fracture of the right femur. Pelvis X-Ray 11/06/17 00:00 IMPRESSION: SATISFACTORY POSTOPERATIVE PELVIS. Assessment & Plan - Diagnosis (1) Coronary artery disease Qualifiers: Coronary Disease-Associated Artery/Lesion type: unspecified vessel or lesion type [place] vs. transplanted heart: [place] heart Associated angina: without angina Qualified Code(s): I25.10 - Atherosclerotic heart disease of [place] coronary artery without angina pectoris Is this a current diagnosis for this admission?: Yes (2) Trochanteric fracture of right femur Qualifiers: Encounter type: initial encounter Fracture type: closed Qualified Code(s) : S72.101A - Unspecified trochanteric fracture of right femur, initial encounter for closed fracture Is this a current diagnosis for this admission?: Yes (3) Dyslipidemia Is this a current diagnosis for this admission?: Yes (4) Acquired absence of right leg below knee Is this a current diagnosis for this admission?: Yes (5) COPD (chronic obstructive pulmonary disease) Qualifiers: COPD type: unspecified COPD Qualified Code(s): J44.9 - Chronic obstructive pulmonary disease, unspecified Is this a current diagnosis for this admission?: Yes (6) CKD (chronic kidney disease) Qualifiers: Chronic kidney disease stage: stage 2 (mild) Qualified Code(s): N18.2 - Chronic kidney disease, stage 2 (mild) Is this a current diagnosis for this admission?: Yes (7) Tobacco abuse Is this a current diagnosis for this admission?: Yes - Notes Notes: Patient is status post right hip surgery. She seems to have tolerated this well. Patient however have multiple underlying significant comorbid diagnosis. Overall patient seems stable from cardiac standpoint. Medications reviewed. Patient to be followed by resin remover. Please call me if there are any further need. As regards coronary artery disease, patient seems to be stable without any EKG changes. Currently not complaining of chest pain. Will sign off. Please reconsult if needed. - Time Time with patient: Less than 15 minutes Medications reviewed and adjusted accordingly: Yes
[2017-11-09] MEDS: ATORVASTATIN CALCIUM 10 MG TABLET PO SCH (21:26)
[2017-11-10] MEDS: OXYCODONE HCL IR 5 MG TABLET PO PRN ×4 (03:02→21:18)
[2017-11-10 07:44] LABS: ANION GAP 12 (5-19); BLOOD UREA NITROGEN 14 mg/dL (7-20); CALCIUM 8.7 mg/dL (8.4-10.2); CARBON DIOXIDE 26 mmol/L (22-30); CHLORIDE 104 mmol/L (98-107); GLUCOSE 104 mg/dL (75-110); SODIUM 141.5 mmol/L (137-145)
[2017-11-10] MEDS: LISINOPRIL 10 MG TABLET PO SCH ×2 (09:26→23:10)
[2017-11-10] MEDS: METOPROLOL TARTRATE 25 MG TABLET PO SCH ×2 (09:26→23:11)
[2017-11-10] MEDS: ASPIRIN 81 MG TABLET, ENT COATED PO SCH (09:26)
[2017-11-10] MEDS: CLOPIDOGREL BISULFATE 75 MG TABLET PO SCH (09:26)
--- NOTE | 2017-11-10 22:18 | PDOC PROGRESS REPORT ---
Subjective Progress Note for:: 11/10/17 Subjective:: No new complaints Reason For Visit: R HIP FRACTURE Physical Exam Vital Signs: Temp Pulse Resp BP Pulse Ox 98.7 F 63 18 167/82 H 96 11/10/17 15:27 11/10/17 15:27 11/10/17 15:27 11/10/17 15:27 11/10/17 15:27 Intake & Output 11/09/17 11/10/17 11/11/17 06:59 06:59 06:59 Intake Total 418 800 360 Output Total 800 1060 300 Balance -382 -260 60 Weight 62.8 kg 64.2 kg General appearance: PRESENT: no acute distress Eye exam: PRESENT: PERRLA Respiratory exam: PRESENT: clear to auscultation shashank Cardiovascular exam: PRESENT: +S1, +S2 Neurological exam: PRESENT: alert Results Laboratory Results: 11/09/17 06:47 11/10/17 06:32 11/10/17 06:32 Sodium 141.5 Potassium 4.0 Chloride 104 Carbon Dioxide 26 Anion Gap 12 BUN 14 Creatinine 0.84 Est GFR ( Amer) > 60 Est GFR (Non-Af Amer) > 60 Glucose 104 Calcium 8.7 Impressions: Femur X-Ray 11/04/17 02:02 IMPRESSION: 1. Acute mildly displaced trochanteric fracture of the right femur. Hip/Pelvis X-Ray 11/04/17 02:02 IMPRESSION: 1. Acute mildly displaced trochanteric fracture of the right femur. Pelvis X-Ray 11/06/17 00:00 IMPRESSION: SATISFACTORY POSTOPERATIVE PELVIS. Assessment & Plan - Diagnosis (1) Trochanteric fracture of right femur Qualifiers: Encounter type: initial encounter Fracture type: closed Qualified Code(s) : S72.101A - Unspecified trochanteric fracture of right femur, initial encounter for closed fracture Is this a current diagnosis for this admission?: Yes (2) Coronary artery disease Qualifiers: Coronary Disease-Associated Artery/Lesion type: unspecified vessel or lesion type [place] vs. transplanted heart: [place] heart Associated angina: without angina Qualified Code(s): I25.10 - Atherosclerotic heart disease of [place] coronary artery without angina pectoris Is this a current diagnosis for this admission?: Yes
[2017-11-10] MEDS: ATORVASTATIN CALCIUM 10 MG TABLET PO SCH (23:11)
[2017-11-11] MEDS: OXYCODONE HCL IR 5 MG TABLET PO PRN ×4 (00:12→22:16)
[2017-11-11 06:49] LABS: ANION GAP 10 (5-19); BLOOD UREA NITROGEN 14 mg/dL (7-20); CALCIUM 8.9 mg/dL (8.4-10.2); CARBON DIOXIDE 26 mmol/L (22-30); CHLORIDE 105 mmol/L (98-107); GLUCOSE 105 mg/dL (75-110); SODIUM 141.4 mmol/L (137-145)
[2017-11-11] MEDS ORDERED: OXYCODONE HCL IR 5 MG TABLET PO PRN ×2 (06:55→07:48)
--- NOTE | 2017-11-11 07:03 | PDOC PROGRESS REPORT ---
Subjective Reason For Visit: R HIP FRACTURE 72-year-old white female postop day 6 from right proximal femoral hemiarthroplasty secondary to femoral neck fracture. Patient complaining about pain and requesting to be discharged home. Physical Exam Vital Signs: Temp Pulse Resp BP Pulse Ox 36.6 C 54 L 18 154/86 H 99 11/11/17 04:18 11/11/17 04:18 11/11/17 04:18 11/11/17 04:18 11/11/17 04:18 Intake & Output 11/10/17 11/11/17 11/12/17 06:59 06:59 06:59 Intake Total 800 1032 Output Total 1060 300 Balance -260 732 Weight 64.2 kg 62.9 kg General appearance: PRESENT: mild distress Head exam: PRESENT: normocephalic Respiratory exam: PRESENT: unlabored Cardiovascular exam: PRESENT: RRR Pulses: PRESENT: other - Right below-knee amputation stump healthy. GI/Abdominal exam: PRESENT: soft Rectal exam: PRESENT: deferred Extremities exam: PRESENT: other - Right hip dressing clean dry and intact. Neurological exam: PRESENT: alert, awake, oriented to person, oriented to place , oriented to time, oriented to situation. ABSENT: motor sensory deficit Psychiatric exam: PRESENT: anxious, appropriate affect, normal mood. ABSENT: homicidal ideation, suicidal ideation Skin exam: PRESENT: dry, intact, warm. ABSENT: cyanosis, rash Results Laboratory Results: 11/09/17 06:47 11/11/17 05:54 11/10/17 11/11/17 06:32 05:54 Sodium 141.5 141.4 Potassium 4.0 4.0 Chloride 104 105 Carbon Dioxide 26 26 Anion Gap 12 10 BUN 14 14 Creatinine 0.84 0.80 Est GFR ( Amer) > 60 > 60 Est GFR (Non-Af Amer) > 60 > 60 Glucose 104 105 Calcium 8.7 8.9 Impressions: Femur X-Ray 11/04/17 02:02 IMPRESSION: 1. Acute mildly displaced trochanteric fracture of the right femur. Hip/Pelvis X-Ray 11/04/17 02:02 IMPRESSION: 1. Acute mildly displaced trochanteric fracture of the right femur. Pelvis X-Ray 11/06/17 00:00 IMPRESSION: SATISFACTORY POSTOPERATIVE PELVIS. Status: Imported from PACS Assessment & Plan - Diagnosis (1) Trochanteric fracture of right femur Qualifiers: Encounter type: initial encounter Fracture type: closed Qualified Code(s) : S72.101A - Unspecified trochanteric fracture of right femur, initial encounter for closed fracture Is this a current diagnosis for this admission?: Yes Plan: 72-year-old white male status post hemiarthroplasty femoral neck fracture. Patient was nonambulatory preop. I think in order for her to be discharged home that she would at least need to be able to transfer independently from bed to wheelchair. I have advised her of this this morning. - Time Time Spent with patient: 15-24 minutes Anticipated discharge: Home with Homehealth Within: Other
[2017-11-11] MEDS: METOPROLOL TARTRATE 25 MG TABLET PO SCH ×2 (09:41→22:16)
[2017-11-11] MEDS: ASPIRIN 81 MG TABLET, ENT COATED PO SCH (09:41)
[2017-11-11] MEDS: LISINOPRIL 10 MG TABLET PO SCH ×2 (09:41→22:16)
[2017-11-11] MEDS: CLOPIDOGREL BISULFATE 75 MG TABLET PO SCH (09:41)
--- NOTE | 2017-11-11 20:58 | PDOC PROGRESS REPORT ---
Subjective Progress Note for:: 11/11/17 Subjective:: Patient was seen by the bedside, she wants to go home though the orthopedic surgeon and myself preferred that she goes to rehab but she refused and she insisted on going home Reason For Visit: R HIP FRACTURE Physical Exam Vital Signs: Temp Pulse Resp BP Pulse Ox 98.1 F 73 16 132/71 H 100 11/11/17 16:04 11/11/17 16:04 11/11/17 16:00 11/11/17 16:04 11/11/17 16:04 Intake & Output 11/10/17 11/11/17 11/12/17 06:59 06:59 06:59 Intake Total 800 1032 460 Output Total 1060 300 900 Balance -260 732 -440 Weight 64.2 kg 62.9 kg General appearance: PRESENT: no acute distress, well-developed, well-nourished Head exam: PRESENT: atraumatic, normocephalic Eye exam: PRESENT: conjunctiva pink, EOMI, PERRLA Ear exam: PRESENT: normal external ear exam Mouth exam: PRESENT: moist, tongue midline Cardiovascular exam: PRESENT: RRR, +S1, +S2 GI/Abdominal exam: PRESENT: normal bowel sounds, soft Rectal exam: PRESENT: deferred Neurological exam: PRESENT: alert Psychiatric exam: PRESENT: appropriate affect, normal mood Skin exam: PRESENT: dry, intact, warm Results Laboratory Results: 11/09/17 06:47 11/11/17 05:54 11/11/17 05:54 Sodium 141.4 Potassium 4.0 Chloride 105 Carbon Dioxide 26 Anion Gap 10 BUN 14 Creatinine 0.80 Est GFR ( Amer) > 60 Est GFR (Non-Af Amer) > 60 Glucose 105 Calcium 8.9 Impressions: Femur X-Ray 11/04/17 02:02 IMPRESSION: 1. Acute mildly displaced trochanteric fracture of the right femur. Hip/Pelvis X-Ray 11/04/17 02:02 IMPRESSION: 1. Acute mildly displaced trochanteric fracture of the right femur. Pelvis X-Ray 11/06/17 00:00 IMPRESSION: SATISFACTORY POSTOPERATIVE PELVIS. Assessment & Plan - Diagnosis (1) Trochanteric fracture of right femur Qualifiers: Encounter type: initial encounter Fracture type: closed Qualified Code(s) : S72.101A - Unspecified trochanteric fracture of right femur, initial encounter for closed fracture Is this a current diagnosis for this admission?: Yes (2) Coronary artery disease Qualifiers: Coronary Disease-Associated Artery/Lesion type: unspecified vessel or lesion type [place] vs. transplanted heart: [place] heart Associated angina: without angina Qualified Code(s): I25.10 - Atherosclerotic heart disease of [place] coronary artery without angina pectoris Is this a current diagnosis for this admission?: Yes
[2017-11-11] MEDS: ATORVASTATIN CALCIUM 10 MG TABLET PO SCH (22:16)
[2017-11-12] MEDS: OXYCODONE HCL IR 5 MG TABLET PO PRN ×3 (04:55→15:43)
[2017-11-12] MEDS: METOPROLOL TARTRATE 25 MG TABLET PO SCH (10:16)
[2017-11-12] MEDS: LISINOPRIL 10 MG TABLET PO SCH (10:17)
[2017-11-12] MEDS: CLOPIDOGREL BISULFATE 75 MG TABLET PO SCH (10:17)
[2017-11-12] MEDS: ASPIRIN 81 MG TABLET, ENT COATED PO SCH (10:18)
--- NOTE | 2017-11-12 14:41 | PDOC DISCHARGE SUMMARY ---
General - Admit/Disc Date/PCP Admission Date/Primary Care Provider: 11/04/17 03:56 MARIAN GO MD Discharge Date: 11/12/17 - Discharge Diagnosis (1) Trochanteric fracture of right femur Is this a current diagnosis for this admission?: Yes (2) Coronary artery disease Is this a current diagnosis for this admission?: Yes (3) Chronic pain syndrome Is this a current diagnosis for this admission?: Yes (4) COPD (chronic obstructive pulmonary disease) Is this a current diagnosis for this admission?: Yes (5) Closed basicervical fracture of right femur Is this a current diagnosis for this admission?: Yes (6) Tobacco abuse Is this a current diagnosis for this admission?: Yes (7) Acquired absence of right leg below knee Is this a current diagnosis for this admission?: Yes (8) Hypertensive urgency Is this a current diagnosis for this admission?: Yes - Additional Information Resuscitation Status: Full Code Home Medications: Atorvastatin Calcium [Lipitor 10 mg Tablet] 10 mg PO QHS 11/04/17 Clopidogrel Bisulfate [Plavix 75 mg Tablet] 75 mg PO DAILY 11/04/17 Doxepin HCl [Silenor] 6 mg PO QHS 11/04/17 Lisinopril [Prinivil] 20 mg PO DAILY 11/04/17 Metoprolol Tartrate [Lopressor 25 mg Tablet] 25 mg PO Q12 11/04/17 Oxycodone HCl 20 mg PO Q6HP PRN 11/04/17 History of Present Illness History of Present Illness: USAMA SULLIVAN is a 72 year old female, She has history of coronary artery disease recently underwent coronary artery bypass grafting, August,, history of peripheral vascular disease status post right below-knee amputation, a recalcitrant smoker, with chronic pain syndrome on chronic opioid therapy she recently fell while trying to get out of the wheelchair to obtain objects form the kitchen cabinet. In the emergency room she was evaluated x-ray of the right hip was done, it showed acute intertrochanteric fracture of the right femur with mild displacement. Hospital Course Hospital Course: Patient was admitted for the management of fracture of the right femur, she is status post amputation of the right leg. She was seen by orthopedic and underwent right hip hemiarthroplasty , she has a history of chronic pain syndrome on large doses of oxycodone , because of the high opioid tolerance she required large doses of opioids for pain control. skilled nursing rehabilitation was recommended but she consistently refused, she preferred to be discharged to home with home PT she also had severe elevated blood pressure probably due to pain, this was optimized she was seen by cardiology before the procedure. Physical Exam Vital Signs: Temp Pulse Resp BP Pulse Ox 98.2 F 59 L 16 124/69 99 11/12/17 11:53 11/12/17 11:53 11/12/17 11:53 11/12/17 11:53 11/12/17 11:53 Intake & Output 11/11/17 11/12/17 11/13/17 06:59 06:59 06:59 Intake Total 1032 460 Output Total 300 1520 Balance 732 -1060 Weight 62.9 kg General appearance: PRESENT: no acute distress Eye exam: PRESENT: PERRLA Respiratory exam: PRESENT: clear to auscultation shashank Cardiovascular exam: PRESENT: +S1, +S2 GI/Abdominal exam: PRESENT: soft Neurological exam: PRESENT: alert Results Laboratory Results: 11/09/17 06:47 11/11/17 05:54 Impressions: Femur X-Ray 11/04/17 02:02 IMPRESSION: 1. Acute mildly displaced trochanteric fracture of the right femur. Hip/Pelvis X-Ray 11/04/17 02:02 IMPRESSION: 1. Acute mildly displaced trochanteric fracture of the right femur. Pelvis X-Ray 11/06/17 00:00 IMPRESSION: SATISFACTORY POSTOPERATIVE PELVIS. Qualifiers - * PATIENT BEING DISCHARGED WITH ANY OF THE FOLLOWING DIAGNOSIS: No
[2017-11-12 18:14] VITALS: BP 117/57
== END 2017-11-12 18:14 | disposition home health service (06) | DRG 470 ==
LOC: ER 01:45 → EH 03:56 → UNDOADMIN 03:56 → EH 05:30 → 4S 05:30
PROVIDERS: ADMIT Internal Medicine; ATTEND Internal Medicine
PROC: 0QS604Z Reposition Right Upper Femur with Internal Fixation Device, Open Approach (ICD-10-PCS; 2017-11-05)
PROC: 0SRR0JZ Replacement of Right Hip Joint, Femoral Surface with Synthetic Substitute, Open Approach (ICD-10-PCS; principal; 2017-11-05 11:30)
DX: S72.141A Displaced intertrochanteric fracture of right femur, initial encounter for closed fracture (principal); S72.111A Displaced fracture of greater trochanter of right femur, initial encounter for closed fracture; I16.0 Hypertensive urgency; I25.10 Atherosclerotic heart disease of native coronary artery without angina pectoris; E78.5 Hyperlipidemia, unspecified; G89.4 Chronic pain syndrome; I12.9 Hypertensive chronic kidney disease with stage 1 through stage 4 chronic kidney disease, or unspecified chronic kidney disease; N18.2 Chronic kidney disease, stage 2 (mild); K21.9 Gastro-esophageal reflux disease without esophagitis; J44.9 Chronic obstructive pulmonary disease, unspecified; Z95.5 Presence of coronary angioplasty implant and graft; I25.2 Old myocardial infarction; W05.0XXA Fall from non-moving wheelchair, initial encounter; Y92.000 Kitchen of unspecified non-institutional (private) residence as the place of occurrence of the external cause; I73.9 Peripheral vascular disease, unspecified; Z95.1 Presence of aortocoronary bypass graft; Z89.511 Acquired absence of right leg below knee; F17.210 Nicotine dependence, cigarettes, uncomplicated; Z82.49 Family history of ischemic heart disease and other diseases of the circulatory system; Z88.2 Allergy status to sulfonamides; Z88.0 Allergy status to penicillin; Z91.040 Latex allergy status; Z79.891 Long term (current) use of opiate analgesic
CPT/HCPCS: 01210; 36415; 72170; 80048; 80053; 85025; 85027; 88305; 88311; 93005; 93010; 93306; 96374; 99285; C9290; G8978-GP; G8979-GP; J0690; J1170; J1200; J1741; J2250; J2270; J2704; J3010; J3370; J3490; J7030; J7050; J7060

== ENCOUNTER 2018-08-18 14:34 | Emergency (ER) | payer MEDICARE ==
[2018-08-18 14:41] VITALS: BP 128/53
--- NOTE | 2018-08-18 15:12 | ER Document Report ---
ED Neuro Symptoms/Deficit - General Chief Complaint: Abnormal Lab Results Stated Complaint: ABNORMAL TEST RESULTS Time Seen by Provider: 08/18/18 14:47 Primary Care Provider: MARIAN GO MD [Primary Care Provider] - Follow up as needed Mode of Arrival: Wheelchair Information source: Patient, Relative TRAVEL OUTSIDE OF THE [place] IN LAST 30 DAYS: No - HPI Patient complains to provider of: Paresthesia, Speech Impairment, Weakness Onset: Last week Awoke with symptoms: No Symptoms are: Intermittent episodes Duration: Gone now Quality of pain: No pain Was STROKE ALERT Called: No Baseline Cognitive: Alert, oriented X 3 Notes: Patient is a 73-year-old female brought to the emergency room by family on recommendation of primary care provider secondary to abnormal CT scan findings consistent with age-indeterminate infarcts, family reports that 1 week ago on Friday patient had an episode lasting approximately 10 minutes where she was confused and incoherent, apparently she has had multiple episodes similar to this previously which basically other family members chalked up as patient taking too much of her medications, however this particular episode was witnessed by a daughter who was concerned and took patient to see her primary care provider last Friday, she was started back on medications that were discontinued about a year and a half ago when she had coronary artery bypass surgery, primary care provider ordered outpatient CT scan and carotid artery Dopplers, when he received the report from radiology he prompted patient to come to the emergency room for admission for further evaluation and treatment, p atient reports no symptoms at present time, denies any pain, is awake alert and oriented x3 - Related Data Allergies/Adverse Reactions: latex [Latex] Allergy (Verified 08/18/18 14:51) Penicillins Allergy (Verified 08/18/18 14:51) Sulfa (Sulfonamide Antibiotics) Allergy (Verified 08/18/18 14:51) Past Medical History - General Information source: Patient, Relative - Social History Smoking Status: Current Every Day Smoker Frequency of alcohol use: None Drug Abuse: None Family History: Hypertension Patient has suicidal ideation: No Patient has homicidal ideation: No - Past Medical History Cardiac Medical History: Reports: Hx Coronary Artery Disease - Stents placed previously., Hx Heart Attack, Hx Hypercholesterolemia, Hx Hypertension, Hx Peripheral Vascular Disease Pulmonary Medical History: Reports: Hx COPD Renal/ Medical History: Denies: Hx Peritoneal Dialysis GI Medical History: Reports: Hx Gastroesophageal Reflux Disease Psychiatric Medical History: Denies: Hx Depression Past Surgical History: Reports: Hx Cardiac Catheterization - 3 stents, Hx Coronary Artery Bypass Graft, Hx Open Heart Surgery - x3 vessels, Hx Orthopedic Surgery - Rt BKA, neck, Hx Vascular Surgery - Immunizations Hx Diphtheria, Pertussis, Tetanus Vaccination: No Hx Pneumococcal Vaccination: 05/18/10 Review of Systems - Review of Systems Constitutional: No symptoms reported EENT: No symptoms reported Cardiovascular: No symptoms reported Respiratory: No symptoms reported Gastrointestinal: No symptoms reported Genitourinary: No symptoms reported Female Genitourinary: No symptoms reported Musculoskeletal: No symptoms reported Skin: No symptoms reported Hematologic/Lymphatic: No symptoms reported Neurological/Psychological: See HPI -: Yes All other systems reviewed and negative Physical Exam - Vital signs Vitals: Temp Pulse Resp BP Pulse Ox 97.9 F 51 L 15 128/53 H 99 08/18/18 14:38 08/18/18 14:38 08/18/18 14:38 08/18/18 14:38 08/18/18 14:38 Interpretation: Normal - General General appearance: Appears well, Alert - HEENT Head: Normocephalic, Atraumatic Eyes: Normal Pupils: PERRL - Respiratory Respiratory status: No respiratory distress Chest status: Nontender Breath sounds: Normal Chest palpation: Normal - Cardiovascular Rhythm: Regular Heart sounds: Normal auscultation Murmur: No - Abdominal Inspection: Normal Distension: No distension Bowel sounds: Normal Tenderness: Nontender Organomegaly: No organomegaly - Back Back: Normal, Nontender - Extremities General upper extremity: Normal inspection, Nontender, Normal color, Normal ROM, Normal temperature General lower extremity: Nontender, Normal color, Normal ROM, Normal temperature, Other - Right BKA. No: Odette's sign - Neurological Neuro grossly intact: Yes Cognition: Normal Orientation: AAOx4 [place] Coma Scale Eye Opening: Spontaneous [place] Coma Scale Verbal: Oriented [place] Coma Scale Motor: Obeys Commands [place] Coma Scale Total: 15 Speech: Normal Motor strength normal: LUE, RUE, LLE, RLE Sensory: Normal - Psychological Associated symptoms: Normal affect, Normal mood - Skin Skin Temperature: Warm Skin Moisture: Dry Skin Color: Normal Course - Re-evaluation Re-evalutation: 08/18/18 15:[address] Go who confirmed that patient was recently started on 5 medications on Friday which include Plavix, aspirin, Lipitor, metoprolol and a combination amlodipine valsartan and hydrochlorothiazide, he requests that patient be admitted to the hospital as an observation for further evaluation and treatment secondary to her positive CT scan findings which are consistent with age indeterminate infarcts - Vital Signs Vital signs: Temp Pulse Resp BP Pulse Ox 97.9 F 51 L 15 128/53 H 99 08/18/18 14:38 08/18/18 14:38 08/18/18 14:38 08/18/18 14:38 08/18/18 14:38 - Laboratory Result Diagrams: 08/18/18 15:34 08/18/18 15:34 Laboratory results interpreted by me: 08/18/18 15:34 RDW 15.9 H - Diagnostic Test Radiology reviewed: Image reviewed, Reports reviewed Discharge - Discharge Clinical Impression: TIA (transient ischemic attack) CVA (cerebral vascular accident) Qualifiers: CVA mechanism: unspecified Qualified Code(s): I63.9 - Cerebral infarction, unspecified Condition: Stable Disposition: ADMITTED OBSERVATION Admitting Provider: Deni Unit Admitted: [facility] Referrals: MARIAN GO MD [Primary Care Provider] - Follow up as needed
[2018-08-18 15:51] LABS: ABSOLUTE EOSINOPHILS # (AUTO) 0.4 10^3/uL (0.0-0.6); ABSOLUTE LYMPHOCYTES (AUTO) 2.1 10^3/uL (0.5-4.7); ABSOLUTE MONOCYTES (AUTO) 0.6 10^3/uL (0.1-1.4); ABSOLUTE NEUT (AUTO) 3.6 10^3/uL (1.7-8.2); BASOPHILS % (AUTO) 0.2 % (0-2); EOSINOPHILS % (AUTO) 5.9 % (0-6); HEMATOCRIT 42.6 % (36.0-47.0); HEMOGLOBIN 14.5 g/dL (12.0-15.5); LYMPHOCYTES % (AUTO) 31.3 % (13-45); MEAN CORPUSCULAR HEMOGLOBIN 31.5 pg (27.0-33.4); MEAN CORPUSCULAR HGB CONC 34.1 g/dL (32.0-36.0); MEAN CORPUSCULAR VOLUME 93 fl (80-97); MONOCYTES % (AUTO) 8.7 % (3-13); PLATELET COUNT 287 10^3/uL (150-450); RED CELL DISTRIBUTION WIDTH 15.9 % (11.5-14.0); SEGMENTED NEUTROPHILS % (AUTO) 53.9 % (42-78); TOTAL CELLS COUNTED % (AUTO) 100 %; WHITE BLOOD COUNT 6.6 10^3/uL (4.0-10.5)
[2018-08-18 16:07] LABS: INTERNATIONAL RATION (INR) 0.92; PROTHROMBIN TIME 12.8 SEC (11.4-15.4)
[2018-08-18 16:08] LABS: ALANINE AMINOTRANSFERASE 23 U/L (9-52); ALBUMIN 4.3 g/dL (3.5-5.0); ALKALINE PHOSPHATASE 101 U/L (38-126); ANION GAP 6 (5-19); ASPARTATE AMINO TRANSFERASE 16 U/L (14-36); BILIRUBIN,DIRECT 0.2 mg/dL (0.0-0.4); BILIRUBIN,TOTAL 0.5 mg/dL (0.2-1.3); BLOOD UREA NITROGEN 17 mg/dL (7-20); CALCIUM 9.5 mg/dL (8.4-10.2); CARBON DIOXIDE 32 mmol/L (22-30); CHLORIDE 102 mmol/L (98-107); CREATINE KINASE 31 U/L (30-135); GLUCOSE 98 mg/dL (75-110); PARTIAL THROMBOPLASTIN TIME 28.2 SEC (23.5-35.8); POTASSIUM 4.5 mmol/L (3.6-5.0); SODIUM 139.9 mmol/L (137-145); TOTAL PROTEIN 7.5 g/dL (6.3-8.2)
[2018-08-18 16:20] LABS: CREATINE KINASE MB 0.31 ng/mL (<4.55); TROPONIN I < 0.012 ng/mL
--- NOTE | 2018-08-18 16:28 | RADIOLOGY REPORT (SQ) ---
EXAM DESCRIPTION: CHEST SINGLE VIEW COMPLETED DATE/TIME: 08/18/2018 4:05 pm REASON FOR STUDY: cva COMPARISON: 04/02/2017 EXAM PARAMETERS: NUMBER OF VIEWS: One view. TECHNIQUE: Single frontal radiographic view of the chest acquired. RADIATION DOSE: NA LIMITATIONS: None. FINDINGS: LUNGS AND PLEURA: Hyperexpansion of the lungs. No infiltrate, effusion, or mass. MEDIASTINUM AND HILAR STRUCTURES: No masses. Contour normal. HEART AND VASCULAR STRUCTURES: Heart normal in size. Normal vasculature. BONES: No acute findings. HARDWARE: Sternotomy wires. OTHER: No other significant finding. IMPRESSION: Chronic lung changes with no acute cardiopulmonary findings. TECHNICAL DOCUMENTATION: JOB ID: [id number] [employer]- All Rights Reserved Reading location - IP/workstation name: [email or web address]
--- NOTE | 2018-08-19 08:14 | EKG REPORT ---
SEVERITY:- ABNORMAL ECG - SINUS RHYTHM LVH WITH SECONDARY REPOLARIZATION ABNORMALITY ANTERIOR Q WAVES, POSSIBLY DUE TO LVH : Confirmed by: Panda Goodrich MD 19-Aug-2018 08:13:29
== END 2018-08-18 17:30 | disposition left against medical advice (07) ==
LOC: ER 14:34 → EH 16:41 → UNDOADMOB 16:41 → UNDODISOB 17:30 → ER 17:30
DX: G45.9 Transient cerebral ischemic attack, unspecified (principal); I63.9 Cerebral infarction, unspecified; R20.2 Paresthesia of skin; R53.1 Weakness; R47.9 Unspecified speech disturbances; F17.200 Nicotine dependence, unspecified, uncomplicated; I25.10 Atherosclerotic heart disease of native coronary artery without angina pectoris; I25.2 Old myocardial infarction; E78.00 Pure hypercholesterolemia, unspecified; I10 Essential (primary) hypertension; J44.9 Chronic obstructive pulmonary disease, unspecified; Z88.2 Allergy status to sulfonamides; Z88.0 Allergy status to penicillin; Z95.1 Presence of aortocoronary bypass graft; Z91.040 Latex allergy status; Z89.511 Acquired absence of right leg below knee
CPT/HCPCS: 36415; 70450; 71045; 80053; 82550; 82553; 84484; 85025; 85610; 85730; 93005; 93010; 93880; 99284

== ENCOUNTER → 2018-08-18 | Outpatient (CLI) | payer MEDICARE, OTHER ==
--- NOTE | 2018-08-18 14:04 | RADIOLOGY REPORT (SQ) ---
EXAM DESCRIPTION: CT HEAD WITHOUT COMPLETED DATE/TIME: 08/18/2018 1:39 pm REASON FOR STUDY: G45.9 TRANSIENT CEREBRAL ISCHEMIC ATTACK, UNSPECIFIED G45.9 TRANSIENT CEREBRAL IS CHEMIC ATTACK, UNSPECIFIED COMPARISON: None. TECHNIQUE: Axial images acquired through the brain without intravenous contrast. Images reviewed wi th bone, brain and subdural windows. Additional sagittal and coronal reconstructions were generated. Images stored on PACS. All CT scanners at this facility use dose modulation, iterative reconstruction, and/or weight based d osing when appropriate to reduce radiation dose to as low as reasonably achievable (ALARA). [facility]: Dose Right [facility]: CareDose [facility]: Dose Right [facility]: Teradose 4D [facility]: [employer] RADIATION DOSE: CT Rad equipment meets quality standard of care and radiation dose reduction techniq ues were employed. CTDIvol: 48.6 mGy. DLP: 929 mGy-cm. mGy. LIMITATIONS: None. FINDINGS: VENTRICLES: Normal size and contour. CEREBRUM: Area of hypoattenuation involving the medial aspect of the left occipital lobe. There is a ssociated mild ex vacuo dilation of the occipital horn of the left lateral ventricle. Additional are a of hypoattenuation along the anterior left frontal lobe extending to the cortex. Additional nonspe cific white matter changes, likely sequelae of microangiopathic disease. There are more focal areas of hypoattenuation within the bilateral basal ganglia likely prior infarcts. No significant mass eff ect or midline shift. CEREBELLUM: No masses. No hemorrhage. No alteration of density. No evidence for acute infarction. EXTRAAXIAL SPACES: No fluid collections. No masses. ORBITS AND GLOBE: No intra- or extraconal masses. Normal contour of globe without masses. Bilateral cataract surgery. CALVARIUM: No fracture. PARANASAL SINUSES: No fluid or mucosal thickening. SOFT TISSUES: No mass or hematoma. OTHER: No other significant finding. IMPRESSION: Chronic appearing area of hypoattenuation along the medial left occipital lobe compatibl e with infarct. Findings suggestive of chronic infarct although technically age indeterminate second vick to lack of priors. Additional areas of hypoattenuation involving the bilateral basal ganglia and left frontal lobe also compatible age indeterminate infarcts. EVIDENCE OF ACUTE STROKE: Age indeterminate infarcts. COMMENT: Pertinent positive or negative findings of the imaging study reported as a CRITICAL EXAM mo GO MD at13:56 on 08/18/2018. Category of Critical Exam: Age indeterminate infarcts. Quality ID # [id number]: Final reports with documentation of one or more dose reduction techniques (e.g., Au tomated exposure control, adjustment of the mA and/or kV according to patient size, use of iterative reconstruction technique) TECHNICAL DOCUMENTATION: JOB ID: [id number] [employer]- All Rights Reserved Reading location - IP/workstation name: [email or web address]
--- NOTE | 2018-08-18 16:09 | RADIOLOGY REPORT (SQ) ---
EXAM DESCRIPTION: CAROTID DOPPLER COMPLETED DATE/TIME: 08/18/2018 3:26 pm REASON FOR STUDY: TIA G45.9 TRANSIENT CEREBRAL ISCHEMIC ATTACK, UNSPECIFIED COMPARISON: None. TECHNIQUE: Grayscale ultrasound, Doppler velocity and spectra, and color Doppler images acquired of the extra-cranial carotid and vertebral arteries. Images stored on PACS. LIMITATIONS: None. FINDINGS: RIGHT CAROTID CCA Velocities: No evidence of high-grade stenosis. Scattered atherosclerotic calcifications. ICA Velocities Peak systolic 51 cm/s. End diastolic 20 cm/s. Proximal ICA/CCA peak systolic ratio. 1.0 Scattered atherosclerosis without high-grade stenosis. Normal spectral waveform. LEFT CAROTID CCA Velocities: No evidence of high-grade stenosis. Scattered atherosclerotic calcifications. ICA Velocities Peak systolic 100 cm/s. End diastolic 33 cm/s. Proximal ICA/CCA peak systolic ratio 1.5. Scattered atherosclerosis without high-grade stenosis. Normal spectral waveform. VERTEBRAL ARTERIES: Antegrade flow. Normal waveforms. SUBCLAVIAN ARTERIES: Not imaged. OTHER: No other significant finding. IMPRESSION: Bilateral carotid atherosclerosis without evidence of high-grade stenosis (less than 50% stenosis bilaterally). COMMENT: Quality ID #[id number]: Velocity criteria are extrapolated from the diameter data as defined by t he Society of Radiologists in Ultrasound Consensus Conference. Radiology 2003: 229; 340-346. TECHNICAL DOCUMENTATION: JOB ID: [id number] [employer]- All Rights Reserved Reading location - IP/workstation name: [email or web address]
== END ==
LOC: SP 14:46
PROVIDERS: ATTEND Internal Medicine
DX: G45.9 Transient cerebral ischemic attack, unspecified (principal)
CPT/HCPCS: 70450; 93880